=== PATIENT | female | born 1950 | race African-American/Black ===

== ENCOUNTER 2018-01-20 19:51 | Emergency (ER) | payer MEDICARE, MEDICAID ==
[~2018-01-20] VITALS: Ht 165.1 cm; Wt 77.1 kg
[2018-01-20] MEDS ORDERED: methylPREDNISolone SOD SUCC 125 MG/2 ML VL ONE (20:01)
[2018-01-20] MEDS ORDERED: EPINEPHrine HCL 1 MG/1 ML AMP ONE (20:01)
[2018-01-20] MEDS ORDERED: diphenhdrAMINE HCL 50 MG/1 ML VL IV ONE (20:30)
[2018-01-20] MEDS ORDERED: FAMOTIDINE (10MG/ML) 2ML VL IV ONE (20:30)
[2018-01-20] MEDS ORDERED: DEXAMETHASONE SOD PHOS 10MG/1ML VIAL INJ IM ONE ×2 (20:30→20:45)
[2018-01-20] MEDS ORDERED: EPINEPHrine HCL 1 MG/1 ML AMP SC ONE (20:45)
[2018-01-20] MEDS ORDERED: methylPREDNISolone SOD SUCC 125 MG/2 ML VL IV ONE (20:45)
[2018-01-20] MEDS ORDERED: ALBUTEROL SULF 2.5 MG/0.5ML(0.5%) NEB SOLN NEB ONE (22:45)
[2018-01-20] MEDS ORDERED: IPRATROPIUM BROM 0.5 MG/2.5ML INH SOL NEB ONE (22:45)
[2018-01-20 22:51] VITALS: BP 146/81
== END 2018-01-20 23:40 | disposition home or self-care (01) ==
LOC: ER 19:57
DX: R22.9 Localized swelling, mass and lump, unspecified (principal); T78.40XA Allergy, unspecified, initial encounter; I10 Essential (primary) hypertension; X58.XXXA Exposure to other specified factors, initial encounter
CPT/HCPCS: 94640; 96372; 96374; 96375; 99284; J0171; J2930; J3490; 93005

== ENCOUNTER 2018-01-23 08:44 | Emergency (ER) | payer MEDICARE, MEDICAID ==
[~2018-01-23] VITALS: Ht 165.1 cm; Wt 79.4 kg
[2018-01-23] MEDS ORDERED: diphenhdrAMINE HCL 50 MG/1 ML VL IV ONE (09:15)
[2018-01-23] MEDS ORDERED: methylPREDNISolone SOD SUCC 125 MG/2 ML VL IV ONE (09:15)
[2018-01-23] MEDS ORDERED: EPINEPHrine HCL 1 MG/1 ML AMP IM ONE (09:15)
[2018-01-23 09:43] LABS: Basophils # (auto) 0 uL; Basophils % (auto) 0.9 % (0.0-2.0); Eosinophils # (auto) 0 uL; Eosinophils % (auto) 0.8 % (0.0-7.0); Hematocrit 41.8 % (36.0-46.0); Hemoglobin 13.9 g/dL (12.2-16.2); Lymphocytes # (auto) 1.4 uL; Lymphocytes % (auto) 31.3 % (10.0-50.0); Mean Corpuscular Hemoglobin 29.6 pg (28.0-32.0); Mean Corpuscular Hgb Conc. 33.2 g/dL (32.0-36.0); Mean Corpuscular Volume 89.2 fL (80.0-100.0); Monocytes # (auto) 0.3 uL; Monocytes % (auto) 7.3 % (0.0-12.0); Neutrophils # (auto) 2.8 uL; Neutrophils % (auto) 59.7 % (37.0-80.0); Nucleated Red Blood Cells % 0.2 %; Platelet Count (auto) 199 10^3/uL (140-450); Red Blood Cells 4.68 10^6/uL (4.0-5.20); Red Cell Distribution Width 13.5 % (11.8-14.3); White Blood Cell 4.6 10^3/uL (4.4-10.8)
[2018-01-23 09:48] LABS: INR 0.89 (0.9-1.15); Prothrombin Time 9.6 sec (9.27-12.13)
[2018-01-23 10:15] LABS: Alanine Aminotransferase 36 U/L (13-56); Albumin 3.5 g/dL (3.4-5.0); Anion Gap 9 (5-15); Aspartate Aminotransferase 34 U/L (15-37); BUN/Creatinine Ratio 14.8; Blood Urea Nitrogen 12 mg/dL (7-18); Calcium 8.6 mg/dL (8.5-10.1); Carbon Dioxide 26 mmol/L (21-32); Chloride 108 mmol/L (98-107); GFR African American 90 mL/min; GFR Non-African American 75 mL/min; Glucose 83 mg/dL (74-106); Potassium 3.8 mmol/L (3.5-5.1); Sodium 143 mmol/L (136-145)
[2018-01-23 10:33] LABS: Alkaline Phosphatase 95 U/L (45-117); Bilirubin, Total 0.4 mg/dL (0.2-1.0); Total Protein 7.2 g/dL (6.4-8.2)
[2018-01-23 10:35] VITALS: BP 146/90
== END 2018-01-23 12:30 | disposition home or self-care (01) ==
LOC: ER 08:44
DX: T78.3XXA Angioneurotic edema, initial encounter (principal); T78.40XA Allergy, unspecified, initial encounter; I10 Essential (primary) hypertension; Z88.8 Allergy status to other drugs, medicaments and biological substances; X58.XXXA Exposure to other specified factors, initial encounter
CPT/HCPCS: 36415; 70490; 71046; 80053; 84484; 85025; 85610; 85730; 96372; 96374; 99285; J0171; J2930

== ENCOUNTER 2018-02-26 08:05 | Inpatient (IN) | payer MEDICARE, MEDICAID ==
[~2018-02-26] VITALS: Ht 165.1 cm; Wt 72.6 kg
[2018-02-26] MEDS ORDERED: methylPREDNISolone SOD SUCC 125 MG/2 ML VL IV ONE (08:30)
[2018-02-26] MEDS ORDERED: EPINEPHrine HCL 1 MG/1 ML AMP SC ONE (08:30)
[2018-02-26] MEDS ORDERED: diphenhdrAMINE HCL 50 MG/1 ML VL IV ONE (08:30)
[2018-02-26] MEDS ORDERED: ACETAMINOPHEN 500 MG TAB PO ONE (10:15)
[2018-02-26] MEDS ORDERED: SODIUM CHLORIDE 0.9% 1,000 ML IV ONE (10:53)
[2018-02-26 12:12] LABS: Basophils # (auto) 0 uL; Basophils % (auto) 0.2 % (0.0-2.0); Eosinophils # (auto) 0 uL; Hematocrit 45.7 % (36.0-46.0); Hemoglobin 15.2 g/dL (12.2-16.2); Lymphocytes # (auto) 0.5 uL; Lymphocytes % (auto) 6.1 % (10.0-50.0); Mean Corpuscular Hemoglobin 28.7 pg (28.0-32.0); Mean Corpuscular Hgb Conc. 33.3 g/dL (32.0-36.0); Mean Corpuscular Volume 86.4 fL (80.0-100.0); Monocytes # (auto) 0.1 uL; Monocytes % (auto) 0.9 % (0.0-12.0); Neutrophils # (auto) 8.1 uL; Neutrophils % (auto) 92.8 % (37.0-80.0); Platelet Count (auto) 211 10^3/uL (140-450); Red Blood Cells 5.29 10^6/uL (4.0-5.20); Red Cell Distribution Width 12.9 % (11.8-14.3); White Blood Cell 8.7 10^3/uL (4.4-10.8)
[2018-02-26 12:27] LABS: Bilirubin, Total 0.4 mg/dL (0.2-1.0); Calcium 8.9 mg/dL (8.5-10.1); Potassium 3.7 mmol/L (3.5-5.1); Total Protein 7.9 g/dL (6.4-8.2)
[2018-02-26] MEDS ORDERED: SODIUM CHLORIDE 0.9% 1,000 ML IV SCH (13:31)
[2018-02-26 13:42] LABS: Urine WBC None Seen /hpf (0 - 5)
[2018-02-26] MEDS ORDERED: TEMAZEPAM 15 MG CAP PO PRN (13:45)
[2018-02-26] MEDS ORDERED: NITROGLYCERIN 0.4 MG SL TAB SL PRN (13:45)
[2018-02-26] MEDS ORDERED: ACETAMINOPHEN 500 MG TAB PO PRN (13:45)
[2018-02-26] MEDS ORDERED: LORazepam 0.5 MG TAB PO PRN (13:45)
[2018-02-26] MEDS ORDERED: HYDROcodone-ACET 5/325MG TAB PO PRN (13:45)
[2018-02-26] MEDS ORDERED: LACTULOSE 20Gm/30ML SOLN PO PRN (13:45)
[2018-02-26] MEDS ORDERED: DEXTROSE (50%) 50ML SYRG IV PRN (13:45)
[2018-02-26] MEDS ORDERED: ONDANSETRON HCL 4 MG/2 ML VIAL IV PRN (13:45)
[2018-02-26] MEDS ORDERED: FAMOTIDINE (10MG/ML) 2ML VL IV ONE (13:45)
[2018-02-26] MEDS ORDERED: ALBUTEROL SULF 2.5 MG/0.5ML(0.5%) NEB SOLN NEB PRN (13:45)
[2018-02-26] MEDS ORDERED: diphenhdrAMINE HCL 50 MG/1 ML VL IV PRN (13:45)
[2018-02-26] MEDS ORDERED: MORPHINE SULFATE 4 MG/ML SYR/VIAL IV PRN ×2 (13:45)
[2018-02-26 13:56] LABS: Urine Bacteria NONE SEEN /hpf (None Seen); Urine Blood Negative /uL (Negative); Urine Mucus FEW (None Seen); Urine Specific Gravity 1.013 (1.001-1.035)
[2018-02-26] MEDS ORDERED: methylPREDNISolone SOD SUCC 40 MG/ML VL IV ONE (14:00)
[2018-02-26] MEDS ORDERED: PANTOPRAZOLE 40 MG TAB PO ONE (14:00)
[2018-02-26] MEDS ORDERED: ENOXAPARIN SOD 40 MG/0.4 ML SYRINGE SC ONE (14:00)
[2018-02-26] MEDS: ALBUTEROL SULF 2.5 MG/0.5ML(0.5%) NEB SOLN NEB SCH (17:37)
[2018-02-26] MEDS: SODIUM CHLORIDE 0.9% 1,000 ML IV SCH (18:19)
[2018-02-26] MEDS: methylPREDNISolone SOD SUCC 40 MG/ML VL IV SCH (18:21)
[2018-02-26] MEDS: ACCU-CHEK COMFORT CURVE STRIP VI SCH (18:23)
[2018-02-26] MEDS ORDERED: FAMOTIDINE (10MG/ML) 2ML VL IV SCH (22:00)
[2018-02-27] MEDS: methylPREDNISolone SOD SUCC 40 MG/ML VL IV SCH ×3 (00:03→11:40)
[2018-02-27] MEDS: ACCU-CHEK COMFORT CURVE STRIP VI SCH ×3 (00:03→12:05)
[2018-02-27 00:33] VITALS: BP 119/72
[2018-02-27] MEDS ORDERED: KEP500T PO (01:08)
[2018-02-27] MEDS ORDERED: PRE5T PO (01:08)
[2018-02-27] MEDS ORDERED: HCTZ25T PO (01:08)
[2018-02-27] MEDS ORDERED: NEBI5TAB2 PO (01:08)
[2018-02-27] MEDS ORDERED: AMLO5TAB13 PO (01:08)
[2018-02-27] MEDS ORDERED: ALBUAER3 IN (01:08)
[2018-02-27] MEDS ORDERED: HYDR50TA15 PO (01:08)
[2018-02-27] MEDS: ALBUTEROL SULF 2.5 MG/0.5ML(0.5%) NEB SOLN NEB SCH ×3 (01:13→13:13)
[2018-02-27 03:12] VITALS: BP 141/71
[2018-02-27 03:27] VITALS: BP 119/72
[2018-02-27 05:18] VITALS: BP 120/63
[2018-02-27] MEDS: SODIUM CHLORIDE 0.9% 1,000 ML IV SCH (06:29)
[2018-02-27 07:45] VITALS: BP 130/72
[2018-02-27 08:29] LABS: Cholesterol 259 mg/dL (< 200); HDL Cholesterol 73 mg/dL (40-59); LDL Cholesterol 150 mg/dL (< 100); Triglycerides 326 mg/dL (< 150)
[2018-02-27 09:00] VITALS: BP 130/72
[2018-02-27] MEDS ORDERED: PANTOPRAZOLE 40 MG TAB PO SCH (10:00)
[2018-02-27] MEDS ORDERED: ENOXAPARIN SOD 40 MG/0.4 ML SYRINGE SC SCH (10:00)
== END 2018-02-27 14:32 | disposition home or self-care (01) | DRG 916 ==
LOC: ER 08:05 → TELE 08:06 → TELE-WESTW 22:18
PROVIDERS: ADMIT Internal Medicine; ATTEND Internal Medicine
DX: T78.3XXA Angioneurotic edema, initial encounter (principal); I10 Essential (primary) hypertension; E78.5 Hyperlipidemia, unspecified; E66.9 Obesity, unspecified; G40.909 Epilepsy, unspecified, not intractable, without status epilepticus; Z83.3 Family history of diabetes mellitus; Z93.0 Tracheostomy status; Z68.26 Body mass index [BMI] 26.0-26.9, adult
CPT/HCPCS: 36415; 70486; 71046; 80053; 80061; 81001; 82962; 83036; 83735; 84443; 85025; 85652; 93005; 94640; 96361; 96372; 96374; 96375; J0171; J3490

== ENCOUNTER 2020-09-02 11:58 | Inpatient (IN) | payer OTHER, MEDICAID ==
[2020-09-02] VITALS (24 sets, daily range): BP systolic 117–142; BP diastolic 75–97
[~2020-09-02] VITALS: Ht 165.1 cm; Wt 79.6 kg
[~2020-09-02 11:58] MED LIST: ALBUAER3 IN; AMLO-489 PO; HYDR25TA5 PO; HYDR50TA15 PO; KEP500T PO; NEBI5TAB2 PO; PRE5T PO
[2020-09-02] MEDS ORDERED: LABETALOL HCL 5 MG/ML 4ML SYRINGE IV ONE (12:45)
[2020-09-02 13:49] LABS: Basophils # (auto) 0 10 ^3/uL (0-0.2); Basophils % (auto) 0.3 % (0.0-2.0); Eosinophils # (auto) 0 10 ^3/uL (0-0.8); Eosinophils % (auto) 0.3 % (0.0-7.0); Hemoglobin 13.7 g/dL (12.2-16.2); Lymphocytes # (auto) 1.1 10 ^3/uL (0.4-5.4); Lymphocytes % (auto) 14.3 % (10.0-50.0); Mean Corpuscular Hemoglobin 27.5 pg (28.0-32.0); Mean Corpuscular Hgb Conc. 32.5 g/dL (32.0-36.0); Mean Corpuscular Volume 84.6 fL (80.0-100.0); Monocytes # (auto) 0.5 10 ^3/uL (0-1.3); Monocytes % (auto) 6.8 % (0.0-12.0); Neutrophils # (auto) 6.2 10 ^3/uL (1.6-8.6); Neutrophils % (auto) 78.3 % (37.0-80.0); Nucleated Red Blood Cells % 0.1 %; Red Blood Cells 4.96 10^6/uL (4.0-5.20); Red Cell Distribution Width 13.1 % (11.8-14.3); White Blood Cell 7.9 10^3/uL (4.4-10.8)
[2020-09-02 14:07] LABS: Potassium 3.8 mmol/L (3.5-5.1)
[2020-09-02 14:18] LABS: Albumin 3.4 g/dL (3.4-5.0); BUN/Creatinine Ratio 25.9; Bilirubin, Total 0.6 mg/dL (0.2-1.0); Calcium 8.5 mg/dL (8.5-10.1); Total Protein 6.9 g/dL (6.4-8.2)
[2020-09-02 14:24] LABS: Urine Bacteria FEW /hpf (None Seen); Urine Blood Negative /uL (Negative); Urine Specific Gravity 1.014 (1.001-1.035); Urine WBC 7 /hpf (0 - 5)
[2020-09-02] MEDS ORDERED: NITROGLYCERIN 0.4 MG SL TAB SL PRN (14:30)
[2020-09-02] MEDS ORDERED: MORPHINE SULFATE INJECTION 2 MG/ML SYRG IV PRN ×2 (14:30→14:45)
[2020-09-02] MEDS ORDERED: DOCUSATE CALCIUM 240 MG CAP PO PRN (14:45)
[2020-09-02] MEDS ORDERED: ACETAMINOPHEN 500 MG TAB PO PRN (14:45)
[2020-09-02] MEDS ORDERED: ONDANSETRON HCL 4 MG/2 ML VIAL IV PRN (14:45)
[2020-09-02] MEDS ORDERED: hydrALAZINE HCL 20 MG/ML VL IV PRN (14:45)
[2020-09-02] MEDS ORDERED: LORazepam 0.5 MG TAB PO PRN (14:45)
[2020-09-02] MEDS ORDERED: dilTIAZem 25 MG/5 ML VIAL IV ONE (15:00)
[2020-09-02] MEDS ORDERED: dilTIAZem 125mg/125ml BAG KIT 125 ML IV SCH (15:00)
[2020-09-02] MEDS ORDERED: ALBUTEROL SULF 2.5 MG/0.5ML(0.5%) NEB SOLN NEB PRN (15:00)
[2020-09-02] MEDS ORDERED: ISOSORBIDE MONONITRATE ER 60 MG TAB PO ONE (15:15)
[2020-09-03] VITALS (37 sets, daily range): BP systolic 120–157; BP diastolic 70–108
[2020-09-03 05:50] LABS: Basophils # (auto) 0 10 ^3/uL (0-0.2); Basophils % (auto) 0.6 % (0.0-2.0); Eosinophils # (auto) 0 10 ^3/uL (0-0.8); Eosinophils % (auto) 0.5 % (0.0-7.0); Hematocrit 37.1 % (36.0-46.0); Hemoglobin 12.3 g/dL (12.2-16.2); Lymphocytes # (auto) 1.9 10 ^3/uL (0.4-5.4); Lymphocytes % (auto) 26.9 % (10.0-50.0); Mean Corpuscular Volume 84.7 fL (80.0-100.0); Monocytes # (auto) 0.6 10 ^3/uL (0-1.3); Monocytes % (auto) 9.2 % (0.0-12.0); Neutrophils # (auto) 4.3 10 ^3/uL (1.6-8.6); Neutrophils % (auto) 62.8 % (37.0-80.0); Nucleated Red Blood Cells % 0.2 %; Red Blood Cells 4.38 10^6/uL (4.0-5.20); Red Cell Distribution Width 13.3 % (11.8-14.3); White Blood Cell 6.9 10^3/uL (4.4-10.8)
[2020-09-03 06:04] LABS: Albumin 3.2 g/dL (3.4-5.0); Calcium 8.4 mg/dL (8.5-10.1); Potassium 3.5 mmol/L (3.5-5.1)
[2020-09-03 06:09] LABS: BUN/Creatinine Ratio 26.2; Bilirubin, Total 0.9 mg/dL (0.2-1.0); INR 1.06 (0.9-1.15); Total Protein 6.4 g/dL (6.4-8.2)
[2020-09-03] MEDS: PANTOPRAZOLE 40 MG TAB PO SCH (09:00)
[2020-09-03] MEDS ORDERED: ENOXAPARIN SOD 40 MG/0.4 ML SYRINGE SC SCH (10:00)
[2020-09-03] MEDS ORDERED: METOPROLOL TARTRATE 25 MG TAB PO ONE (11:30)
[2020-09-03] MEDS: levETIRAcetam 500 MG TAB PO SCH ×2 (11:52→21:07)
[2020-09-03] MEDS: traMADol HCL 50 MG TAB PO PRN ×2 (11:52→21:09)
[2020-09-03] MEDS: APIXABAN 5 MG TAB PO SCH (21:06)
[2020-09-03] MEDS: METOPROLOL TARTRATE 25 MG TAB PO SCH (21:07)
[2020-09-03] MEDS ORDERED: ENOXAPARIN SOD 80 MG/0.8ML SYRINGE SC SCH (22:00)
[2020-09-03] MEDS: MORPHINE SULFATE INJECTION 2 MG/ML SYRG IV PRN (23:24)
[2020-09-04] VITALS (18 sets, daily range): BP systolic 115–163; BP diastolic 69–110
[2020-09-04 05:35] LABS: Magnesium 1.9 mg/dL (1.6-2.6)
[2020-09-04] MEDS: levETIRAcetam 500 MG TAB PO SCH ×3 (06:41→21:02)
[2020-09-04] MEDS: APIXABAN 5 MG TAB PO SCH ×2 (08:48→21:02)
[2020-09-04] MEDS: HCTZ 25 MG TAB PO SCH (08:48)
[2020-09-04] MEDS: METOPROLOL TARTRATE 25 MG TAB PO SCH ×2 (08:49→21:02)
[2020-09-04] MEDS: PANTOPRAZOLE 40 MG TAB PO SCH (08:50)
[2020-09-04] MEDS: amLODIPine BESYLATE 5 MG TAB PO SCH (08:50)
[2020-09-04] MEDS: traMADol HCL 50 MG TAB PO PRN ×2 (09:30→22:28)
[2020-09-04 09:42] LABS: Basophils # (auto) 0.1 10 ^3/uL (0-0.2); Basophils % (auto) 0.7 % (0.0-2.0); Eosinophils # (auto) 0 10 ^3/uL (0-0.8); Eosinophils % (auto) 0.2 % (0.0-7.0); Hematocrit 40.3 % (36.0-46.0); Hemoglobin 13.4 g/dL (12.2-16.2); Lymphocytes # (auto) 1.1 10 ^3/uL (0.4-5.4); Lymphocytes % (auto) 13.6 % (10.0-50.0); Mean Corpuscular Hemoglobin 28.5 pg (28.0-32.0); Mean Corpuscular Hgb Conc. 33.3 g/dL (32.0-36.0); Mean Corpuscular Volume 85.5 fL (80.0-100.0); Monocytes # (auto) 0.6 10 ^3/uL (0-1.3); Monocytes % (auto) 7.5 % (0.0-12.0); Neutrophils # (auto) 6.5 10 ^3/uL (1.6-8.6); Nucleated Red Blood Cells % 0.2 %; Red Blood Cells 4.71 10^6/uL (4.0-5.20); Red Cell Distribution Width 13.7 % (11.8-14.3); White Blood Cell 8.3 10^3/uL (4.4-10.8)
[2020-09-04] MEDS ORDERED: hydrALAZINE HCL 25 MG TAB PO ONE (09:45)
[2020-09-04 09:57] LABS: Albumin 3.1 g/dL (3.4-5.0); Calcium 8.6 mg/dL (8.5-10.1)
[2020-09-04 10:03] LABS: BUN/Creatinine Ratio 12.5; Total Protein 6.7 g/dL (6.4-8.2)
[2020-09-04] MEDS: hydrALAZINE HCL 25 MG TAB PO SCH ×2 (14:01→21:01)
[2020-09-04] MEDS: MORPHINE SULFATE INJECTION 2 MG/ML SYRG IV PRN (22:45)
[2020-09-05] MEDS: traMADol HCL 50 MG TAB PO PRN (04:06)
[2020-09-05 06:00] VITALS: BP 129/80
[2020-09-05] MEDS: levETIRAcetam 500 MG TAB PO SCH ×2 (06:23→13:08)
[2020-09-05] MEDS: hydrALAZINE HCL 25 MG TAB PO SCH ×2 (06:32→13:08)
[2020-09-05 08:45] VITALS: BP 123/65
[2020-09-05] MEDS: HCTZ 25 MG TAB PO SCH (09:38)
[2020-09-05] MEDS: METOPROLOL TARTRATE 25 MG TAB PO SCH (09:38)
[2020-09-05] MEDS: APIXABAN 5 MG TAB PO SCH (09:38)
[2020-09-05] MEDS: amLODIPine BESYLATE 5 MG TAB PO SCH (09:39)
[2020-09-05] MEDS: PANTOPRAZOLE 40 MG TAB PO SCH (09:39)
[2020-09-05 12:35] VITALS: BP 113/68
== END 2020-09-05 16:46 | disposition home health service (06) | DRG 309 ==
LOC: EDBD 11:58 → ER 11:58 → TELE-DOU 14:29 → DOU IN ICU 16:50 → TELE-WESTW 09-04 21:20
PROVIDERS: ADMIT Family Medicine; ATTEND Internal Medicine Geriatric Medicine
DX: I48.91 Unspecified atrial fibrillation (principal); I16.1 Hypertensive emergency; I48.92 Unspecified atrial flutter; R55 Syncope and collapse; G40.909 Epilepsy, unspecified, not intractable, without status epilepticus; E78.5 Hyperlipidemia, unspecified; E11.9 Type 2 diabetes mellitus without complications; J45.909 Unspecified asthma, uncomplicated; M54.9 Dorsalgia, unspecified; M54.2 Cervicalgia; R77.8 Other specified abnormalities of plasma proteins; Z20.822 Contact with and (suspected) exposure to COVID-19; Z82.49 Family history of ischemic heart disease and other diseases of the circulatory system; Z88.8 Allergy status to other drugs, medicaments and biological substances; Z90.710 Acquired absence of both cervix and uterus
CPT/HCPCS: 36415; 70450; 71045; 80053; 80061; 81001; 83735; 83880; 84443; 84484; 85025; 85610; 87081; 87426; 93005; 93306; 96365; 96375; 99291; G0378; J3490

== ENCOUNTER 2023-07-06 15:00 | Inpatient (IN) | payer OTHER, MEDICAID ==
[~2023-07-06] VITALS: Ht 165.1 cm; Wt 76.5 kg
[~2023-07-06 15:00] MED LIST changes: -AMLO-489 PO; +AMLO1TAB22 PO; +HYDR-4297 PO; -HYDR50TA15 PO
[2023-07-06 15:57] LABS: Basophils # (auto) 0 10 ^3/uL (0-0.2); Eosinophils # (auto) 0.1 10 ^3/uL (0-0.8); Lymphocytes # (auto) 1.3 10 ^3/uL (0.4-5.4); Monocytes # (auto) 0.3 10 ^3/uL (0-1.3); Nucleated Red Blood Cells % 0.1 %
[2023-07-06 16:00] LABS: Basophils % (auto) 0.5 % (0.0-2.0); Eosinophils % (auto) 1.2 % (0.0-7.0); Hematocrit 38.1 % (36.0-46.0); Hemoglobin 12.3 g/dL (12.2-16.2); Lymphocytes % (auto) 18.1 % (10.0-50.0); Mean Corpuscular Hemoglobin 25.8 pg (28.0-32.0); Mean Corpuscular Hgb Conc. 32.4 g/dL (32.0-36.0); Mean Corpuscular Volume 79.9 fL (80.0-100.0); Monocytes % (auto) 3.8 % (0.0-12.0); Neutrophils # (auto) 5.3 10 ^3/uL (1.6-8.6); Neutrophils % (auto) 76.4 % (37.0-80.0); Red Blood Cells 4.77 10^6/uL (4.0-5.20); Red Cell Distribution Width 18.2 % (11.8-14.3)
[2023-07-06 16:11] LABS: INR 1.11 (0.9-1.15); Partial Thromboplastin Time 30.4 SEC (24.5-34.5); Prothrombin Time 11.6 sec (9.3-11.8)
[2023-07-06 16:17] LABS: Alanine Aminotransferase 11 U/L (7-40); Alkaline Phosphatase 163 U/L (46-116); Anion Gap 6 (5-15); Aspartate Aminotransferase 13 U/L (13-40); BUN/Creatinine Ratio 14.7 (10.0-20.0); Bilirubin, Total 0.4 mg/dL (0.2-1.0); Blood Urea Nitrogen 11 mg/dL (9-23); Calcium 8.8 mg/dL (8.7-10.4); Carbon Dioxide 28 mmol/L (20-30); Chloride 110 mmol/L (98-107); Glucose 113 mg/dL (74-106); Potassium 3.4 mmol/L (3.5-5.1); Sodium 144 mmol/L (136-145); Total Protein 6.7 g/dL (5.7-8.2)
[2023-07-06] MEDS: PANTOPRAZOLE 40 MG/10 ML VIAL INJ IV ONE (16:26)
[2023-07-06] MEDS: SODIUM CHLORIDE 0.9% 1,000 ML IV ONE (16:26)
[2023-07-06] MEDS: SODIUM CHLORIDE 0.9% 1,000 ML IV SCH (17:16)
[2023-07-06] MEDS: POTASSIUM EFFERVESENT TAB 25 MEQ PO ONE (17:25)
[2023-07-06 19:21] LABS: Urine Bacteria NONE SEEN /hpf (None Seen); Urine Blood Negative /uL (Negative); Urine Clarity Clear (Clear); Urine Color Colorless (Yellow); Urine Protein, UAD Negative (Negative); Urine Specific Gravity 1.014 (1.001-1.035); Urine Urobilinogen Normal (Negative); Urine WBC <1 /hpf (0 - 5)
[2023-07-06 22:57] VITALS: BP 163/84; PULSE 67; RESP 17; TEMP 97.6
[2023-07-06] MEDS: ACETAMINOPHEN 325 MG TAB PO PRN (23:07)
[2023-07-06] MEDS: levETIRAcetam 500 MG TAB PO SCH (23:07)
[2023-07-07 05:00] VITALS: BP 113/65; PULSE 58; RESP 17; TEMP 98; O2SAT 98
[2023-07-07 07:03] LABS: Basophils # (auto) 0 10 ^3/uL (0-0.2); Eosinophils # (auto) 0.1 10 ^3/uL (0-0.8); Hemoglobin 9.8 g/dL (12.2-16.2); Lymphocytes # (auto) 1.5 10 ^3/uL (0.4-5.4); Monocytes # (auto) 0.5 10 ^3/uL (0-1.3)
[2023-07-07 07:07] LABS: Basophils % (auto) 0.4 % (0.0-2.0); Eosinophils % (auto) 2.1 % (0.0-7.0); Hematocrit 30.1 % (36.0-46.0); Lymphocytes % (auto) 24.8 % (10.0-50.0); Mean Corpuscular Hemoglobin 26.1 pg (28.0-32.0); Mean Corpuscular Hgb Conc. 32.7 g/dL (32.0-36.0); Mean Corpuscular Volume 79.6 fL (80.0-100.0); Monocytes % (auto) 8.6 % (0.0-12.0); Neutrophils # (auto) 3.8 10 ^3/uL (1.6-8.6); Neutrophils % (auto) 64.1 % (37.0-80.0); Nucleated Red Blood Cells % 0.2 %; Red Blood Cells 3.78 10^6/uL (4.0-5.20); Red Cell Distribution Width 18.3 % (11.8-14.3)
[2023-07-07 07:28] LABS: Albumin 3.4 g/dL (3.2-4.8); Alkaline Phosphatase 126 U/L (46-116); Anion Gap 6 (5-15); Aspartate Aminotransferase < 8 U/L (13-40); Bilirubin, Total 0.6 mg/dL (0.2-1.0); Blood Urea Nitrogen 11 mg/dL (9-23); Calcium 8.9 mg/dL (8.5-10.1); Carbon Dioxide 28 mmol/L (20-30); Chloride 111 mmol/L (98-107); Glucose 87 mg/dL (74-106); Potassium 3.8 mmol/L (3.5-5.1); Sodium 145 mmol/L (136-145); Total Protein 5.2 g/dL (5.7-8.2)
[2023-07-07 07:29] LABS: Alanine Aminotransferase < 9 U/L (7-40)
[2023-07-07 08:00] VITALS: PULSE 63; RESP 18; O2SAT 98
[2023-07-07 09:00] VITALS: BP 163/82; PULSE 63; RESP 19; TEMP 98; O2SAT 96
[2023-07-07] MEDS: amLODIPine BESYLATE 5 MG TAB PO SCH (10:51)
[2023-07-07] MEDS: PANTOPRAZOLE 40 MG/10 ML VIAL INJ IV SCH (10:52)
[2023-07-07] MEDS: hydroCHLOROthiazide 25 MG TAB PO SCH (10:52)
[2023-07-07 13:00] VITALS: BP 167/79; PULSE 63; RESP 19; TEMP 98.2; O2SAT 96
[2023-07-07 16:40] VITALS: BP 130/56; PULSE 61; RESP 19; TEMP 98.2; O2SAT 96
[2023-07-07 23:13] VITALS: BP 141/69; PULSE 66; RESP 18; TEMP 98.6; O2SAT 94
[2023-07-08] VITALS (7 sets, daily range): BP systolic 107–141; BP diastolic 54–98; PULSE 57–110; RESP 16–18; TEMP 97.8–98.8; O2SAT 93–98
[2023-07-08 07:34] LABS: Basophils # (auto) 0 10 ^3/uL (0-0.2); Eosinophils # (auto) 0.1 10 ^3/uL (0-0.8); Eosinophils % (auto) 1.5 % (0.0-7.0); Hematocrit 32.9 % (36.0-46.0); Lymphocytes # (auto) 1.4 10 ^3/uL (0.4-5.4); Lymphocytes % (auto) 21.6 % (10.0-50.0); Monocytes # (auto) 0.5 10 ^3/uL (0-1.3); Neutrophils # (auto) 4.4 10 ^3/uL (1.6-8.6)
[2023-07-08 07:54] LABS: Anion Gap 7 (5-15); Carbon Dioxide 28 mmol/L (20-30); Chloride 107 mmol/L (98-107); Potassium 3.7 mmol/L (3.5-5.1); Sodium 142 mmol/L (136-145)
[2023-07-08 07:55] LABS: Calcium 9.2 mg/dL (8.5-10.1)
[2023-07-08 08:00] LABS: BUN/Creatinine Ratio 12.5 (10.0-20.0); Blood Urea Nitrogen 8 mg/dL (9-23); Glucose 89 mg/dL (74-106)
[2023-07-08 08:11] LABS: Basophils % (auto) 0.2 % (0.0-2.0); Hemoglobin 10.7 g/dL (12.2-16.2); Mean Corpuscular Hemoglobin 26.2 pg (28.0-32.0); Mean Corpuscular Hgb Conc. 32.6 g/dL (32.0-36.0); Mean Corpuscular Volume 80.4 fL (80.0-100.0); Monocytes % (auto) 7.4 % (0.0-12.0); Neutrophils % (auto) 69.3 % (37.0-80.0); Nucleated Red Blood Cells % 0.2 %; Red Blood Cells 4.09 10^6/uL (4.0-5.20); Red Cell Distribution Width 18.2 % (11.8-14.3); White Blood Cell 6.3 10^3/uL (4.4-10.8)
[2023-07-08] MEDS ORDERED: ONDANSETRON HCL 4 MG/2 ML VIAL IV PRN (12:00)
[2023-07-08] MEDS ORDERED: hydrALAZINE HCL 20 MG/ML VL IV PRN (12:00)
[2023-07-09] VITALS (7 sets, daily range): BP systolic 124–144; BP diastolic 69–74; PULSE 62–78; RESP 16–18; TEMP 97.9–98.6; O2SAT 91–98
[2023-07-09 06:24] LABS: Basophils # (auto) 0 10 ^3/uL (0-0.2); Eosinophils # (auto) 0 10 ^3/uL (0-0.8); Eosinophils % (auto) 0.7 % (0.0-7.0); Lymphocytes # (auto) 0.8 10 ^3/uL (0.4-5.4); Monocytes # (auto) 0.4 10 ^3/uL (0-1.3)
[2023-07-09 06:27] LABS: Basophils % (auto) 0.3 % (0.0-2.0); Hemoglobin 10.5 g/dL (12.2-16.2); Lymphocytes % (auto) 14.2 % (10.0-50.0); Mean Corpuscular Hemoglobin 26.5 pg (28.0-32.0); Mean Corpuscular Volume 80.5 fL (80.0-100.0); Monocytes % (auto) 7.2 % (0.0-12.0); Neutrophils # (auto) 4.7 10 ^3/uL (1.6-8.6); Neutrophils % (auto) 77.6 % (37.0-80.0); Red Blood Cells 3.97 10^6/uL (4.0-5.20)
[2023-07-09] MEDS: PANTOPRAZOLE 40 MG TAB PO SCH (09:19)
[2023-07-10 05:00] VITALS: BP 115/68; PULSE 68; RESP 18; TEMP 98.4; O2SAT 95
[2023-07-10 06:36] LABS: Basophils # (auto) 0 10 ^3/uL (0-0.2); Eosinophils # (auto) 0.1 10 ^3/uL (0-0.8); Hemoglobin 10.7 g/dL (12.2-16.2); Monocytes # (auto) 0.6 10 ^3/uL (0-1.3); Neutrophils # (auto) 2.4 10 ^3/uL (1.6-8.6); Nucleated Red Blood Cells % 0.3 %; White Blood Cell 4.2 10^3/uL (4.4-10.8)
[2023-07-10 06:39] LABS: Basophils % (auto) 0.2 % (0.0-2.0); Eosinophils % (auto) 1.5 % (0.0-7.0); Hematocrit 32.5 % (36.0-46.0); Lymphocytes # (auto) 1.1 10 ^3/uL (0.4-5.4); Lymphocytes % (auto) 26.9 % (10.0-50.0); Mean Corpuscular Hemoglobin 26.5 pg (28.0-32.0); Mean Corpuscular Volume 80.3 fL (80.0-100.0); Monocytes % (auto) 14.6 % (0.0-12.0); Neutrophils % (auto) 56.8 % (37.0-80.0); Red Blood Cells 4.05 10^6/uL (4.0-5.20); Red Cell Distribution Width 18.2 % (11.8-14.3)
[2023-07-10 08:40] VITALS: BP 146/78; PULSE 65; RESP 18; TEMP 97.9; O2SAT 96
[2023-07-10] MEDS ORDERED: FURO1TAB33 PO (10:28)
[2023-07-10 12:13] VITALS: BP 146/78; TEMP 36.6
== END 2023-07-10 13:30 | disposition home or self-care (01) | DRG 378 ==
LOC: ER 15:00 → OVERFLOW 16:52 → CENTRAL 21:40
PROVIDERS: ADMIT Nurse Practitioner Family; ATTEND Internal Medicine Geriatric Medicine
DX: K57.31 Diverticulosis of large intestine without perforation or abscess with bleeding (principal); D62 Acute posthemorrhagic anemia; I10 Essential (primary) hypertension; E78.5 Hyperlipidemia, unspecified; K59.00 Constipation, unspecified; I48.91 Unspecified atrial fibrillation; E87.6 Hypokalemia; G40.909 Epilepsy, unspecified, not intractable, without status epilepticus; K80.20 Calculus of gallbladder without cholecystitis without obstruction; K57.90 Diverticulosis of intestine, part unspecified, without perforation or abscess without bleeding; Z79.01 Long term (current) use of anticoagulants; Z88.8 Allergy status to other drugs, medicaments and biological substances; Z87.19 Personal history of other diseases of the digestive system; Z82.49 Family history of ischemic heart disease and other diseases of the circulatory system
CPT/HCPCS: 36415; 71045; 74176; 80048; 80053; 81001; 85025; 85610; 85730; 86850; 86900; 86901; 96361; 96374; C9113; G0378

== ENCOUNTER 2024-08-11 07:31 | Inpatient (IN) | payer OTHER, MEDICAID ==
[~2024-08-11] VITALS: Ht 165.1 cm; Wt 78.0 kg
[~2024-08-11 07:31] MED LIST changes: +ALBU108A5 IN; +DRON400T PO; +FURO1TAB33 PO; +FURO40TA4 PO; -HYDR-4297 PO; +HYDR50TA47 PO; +LOSA-534 PO; +METO25TA5 PO; +NEBI5TAB10 PO; -NEBI5TAB2 PO; +PANT40TA2 PO; -PRE5T PO
--- NOTE | 2024-08-11 07:38 | ECG ---
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
--- NOTE | 2024-08-11 07:46 | ED.PDOC ---
SOB-HPI HPI Comments 73 year old female MANUELA presents to the ED with chief complaint of SOB. Patient reports that she has been experiencing increasing SOB for the past week with associated nausea. Patient relays that she has been unable to lay down and sleep due to her SOB, noting that her inhaler and O2 at home has not improved symptoms. Patient states she takes her water pill and other medication as prescribed. Patient notes she has the Flu last month. Patient denies any chest pain, cough, dizziness, headache, vomiting, or fever. Chief Complaint: Shortness of Breath Time Seen by MD: 07:43 Primary Care Provider: TIA Reviewed notes: Nurses Notes, Brush Filler Hand Notes, Medications, Allergies Information Source: Patient, Emergency Med Personnel Mode of Arrival: EMS Severity: Moderate Timing: Weeks Duration: Since onset Context: At Rest PE Risk Factors: None History of: Asthma, CHF Prehospital treatment: None Modifying Factors: Nothing Associated Signs and Symptoms: None Past Medical History PAST MEDICAL HISTORY: AFIB, Asthma, CHF, High Lipids, HTN, Seizures Surgical History: Denies all surgeries CRM MARKETING ANALYST History: No Pertinent CRM MARKETING ANALYST History Family History Family History: Reviewed,noncontributory to illness Social History Smoker: Non-Smoker Alcohol: Occasionally Drugs: Denies Drug Use Lives In: Home Constitutional: denies: chills, diaphoresis, fatigue, fever, malaise, sweats, weakness, others EENTM: denies: blurred vision, double vision, ear bleeding, ear discharge, ear drainage, ear pain, ear ringing, eye pain, eye redness, hearing loss, mouth pain, mouth swelling, nasal discharge, nose bleeding, nose congestion, nose pain, photophobia, tearing, throat pain, throat swelling, voice changes, others Respiratory: reports: shortness of breath; denies: cough, hemoptysis, or thopnea, SOB at rest, SOB with excertion, stridor, wheezing, others Cardiovascular: denies: chest pain, dizzy spells, diaphoresis, Dyspnea on exertion, edema, irregular heart beat, left arm pain, lightheadedness, palpitations, PND, syncope, others Gastrointestinal: reports: nausea; denies: abdomen distended, abdominal pain, blood streaked bowels, constipated, diarrhea, dysphagia, difficulty swallowing, hematemesis, melena, poor appetite, poor fluid intake, rectal bleeding, rectal pain, vomiting, others Genitourinary: denies: abnormal vagina bleeding, burning, dyspareunia, dysuria, flank pain, frequency, hematuria, incontinence, pain, , vagina discharge, urgency, others Neurological: denies: dizziness, fainting, headache, left sided numbness, left sided weakness, numbness, paresthesia, pre-existing deficit, right sided numbness, right sided weakness, seizure, speech problems, tingling, tremors, weakness, others Musculoskeletal: denies: back pain, gout, joint pain, joint swelling, muscle pain, muscle stiffness, neck pain, others Integumetry: denies: bruises, change in color, change in hair/nails, dryness, laceration, lesions, lumps, rash, wounds, others Allergic/Immunocompromised: denies: Difficulty Healing, Frequent Infections, Hives, Itching, others Hematologic/Lymphatic: denies: anemia, blood clots, easy bleeding, easy bruising, swollen glands, others Endocrine: denies: excessive hunger, excessive sweating, excessive thirst, excessive urination, flushing, intolerance to cold, intolerance to heat, unexplained weight gain, unexplained weight loss, others Psychiatric: denies: anxiety, bipolar disorder, depression, hopeless, panic disorder, schizophrenia, sleepless, suicidal, others All Other Systems: Reviewed and Negative Physical Exam General Appearance: Moderate Distress, Normal HEENT: Normal ENT Inspection, PERRL/EOMI Neck: Full Range of Motion, Non-Tender, Normal, Normal Inspection Respiratory: Accessory Muscle Use, Chest Non-Tender, Respiratory Distress, Wheezing Cardiovascular: No Edema, No JVD, No Murmur, No Gallop, Normal Peripheral Pulses, Regular Rate/Rhythm Breast Exam: Deferred Gastrointestinal: No Organomegaly, Non Tender, No Pulsatile Mass, Normal Bowel Sounds, Soft Genitalia: Deferred Pelvic: Deferred Rectal: Deferred Extremities: No calf tenderness, Normal capillary refill, Normal inspection, Normal range of motion, Non-tender, No pedal edema Musculoskeletal : Apperance: Normal Neurologic: Alert, sonoscope operator II-XII nml as Tested, No Motor Deficits, Normal Affect, Normal Mood, No Sensory Deficits Cerebellar Function: NOT DONE Reflexes: NOT DONE Skin: Dry, Normal Color, Warm Peripheral Pulses: 3+ Radial (R), 3+ Radial (L) Lymphatic: No Adenopathy Was a procedure done? Was a procedure done?: No Differential Dx Differential Diagnosis: Anxiety, Asthma, Bronchitis, CHF, COPD X-Ray, Labs, Meds, VS Vital Signs Date Time Temp Pulse Resp B/P (MAP) Pulse Ox O2 Delivery O2 Flow Rate FiO2 08/11/24 09:06 127/102 08/11/24 08:25 97.8 107 17 127/102 (110) 97 97.8 08/11/24 08:25 107 08/11/24 07:31 83 08/11/24 07:31 98.1 96 17 131/95 (107) 98 98.1 Lab Test 08/11/24 08:51 08/11/24 07:58 Range/Units Troponin I High Sensitivity 8 7 </=34 ng/L White Blood Count 7.7 4.4-10.8 10^3/uL Red Blood Count 5.23 H 4.0-5.20 10^6/uL Hemoglobin 10.6 L 12.2-16.2 g/dL Hematocrit 34.8 L 36.0-46.0 % Mean Corpuscular Volume 66.5 L 80.0-100.0 fL Mean Corpuscular Hemoglobin 20.2 L 28.0-32.0 pg Mean Corpuscular Hemoglobin Concent 30.3 L 32.0-36.0 g/dL Red Cell Distribution Width 21.9 H 11.8-14.3 % Platelet Count 200 140-450 10^3/uL Mean Platelet Volume 8.4 6.9-10.8 fL Neutrophils (%) (Auto) 64.8 37.0-80.0 % Lymphocytes (%) (Auto) 23.5 10.0-50.0 % Monocytes (%) (Auto) 10.6 0.0-12.0 % Eosinophils (%) (Auto) 0.5 0.0-7.0 % Basophils (%) (Auto) 0.6 0.0-2.0 % Neutrophils # (Auto) 5.0 1.6-8.6 10 ^3/uL Lymphocytes # (Auto) 1.8 0.4-5.4 10 ^3/uL Monocytes # (Auto) 0.8 0-1.3 10 ^3/uL Eosinophils # (Auto) 0 0-0.8 10 ^3/uL Basophils # (Auto) 0 0-0.2 10 ^3/uL Nucleated Red Blood Cells 1.5 % Platelet Estimate Adequate Hypochromasia (manual) Moderate Anisocytosis (manual) Slight Microcytosis Moderate Tear Drop Cells Few [place] Cells Few Sodium Level 145 136-145 mmol/L Potassium Level 4.0 3.5-5.1 mmol/L Chloride Level 109 H 98-107 mmol/L Carbon Dioxide Level 25 20-31 mmol/L Anion Gap 11 5-15 Blood Urea Nitrogen 16 9-23 mg/dL Creatinine 1.21 H 0.550-1.02 mg/dL Glomerular Filtration Rate Calc 47 >90 mL/min BUN/Creatinine Ratio 13.2 10.0-20.0 Serum Glucose 99 74-106 mg/dL Calcium Level 9.3 8.7-10.4 mg/dL B-Type Natriuretic Peptide Pending Current Medications Medications (Trade) Dose Ordered Sig/Ziyad Route Start Time Stop Time Status Last Admin Furosemide (Lasix Injection) 20 mg ONCE ONCE IV 08/11/24 07:45 08/11/24 07:46 DC 08/11/24 09:06 Methylprednisolone Sodium Succinate (Solu Medrol) 125 mg ONCE ONCE IV 08/11/24 07:45 08/11/24 07:46 DC 08/11/24 09:02 Patient alert. Complaining of shortness a breath. No leg swelling. Vitals stable. Possible CHF. Was given Lasix. COPD exacerbation. Was given steroid. Continues to have shortness of breath. Placed on oxygen. Reviewed her previous visit. Explained to the patient. Continue cardiac monitoring. EKG reviewed does not show any acute changes. Cardiac marker within normal limits. Chest XR: FINDINGS: Lines and Tubes: None Lungs: Increased interstitial prominence Pleura: No effusion. No pneumothorax. Cardiomediastinal contours: Cardiomegaly Bones: Unremarkable IMPRESSION: Pulmonary vascular congestion Time of 1ST Reevaluation: 08:43 Reevaluation 1ST: Unchanged Patient Education/Counseling: Diagnosis, Treatment Family Education/Counseling: No Family Present Additional Information Previous visit documents reviewed: 07/06/23 for rectal bleeding The following tests were ordered, and results were reviewed by me: CBC, BMP, UA, BNP, Troponin, EKG, Chest XR Additional Information was gathered from interviewing the following independent historians: EMS I reviewed and agreed with the following test results read by other providers: Chest XR I discussed treatment and results with medical personnel and: Patient Departure 1 Departure Time of Disposition: 09:49 Impression: Primary Impression: Acute respiratory failure Qualified Codes: J96.01 - Acute respiratory failure with hypoxia Additional Impressions: COPD exacerbation CHF (congestive heart failure) Qualified Codes: I50.43 - Acute on chronic combined systolic (congestive) and diastolic (congestive) heart failure Disposition: 09 ADMITTED INPATIENT Admit to: Med Surg Condition: Guarded Critical Care Note Critical Care Time?: Yes (90 min-critical care time only) Critical care comment: Placed on oxygen Stability Stability form required: No Heart Score Heart Score: Heart Score Response (Comments) Value History Moderate Suspicious 1 EKG Normal 0 Age >65 2 Risk Factors >3 or Hx ASHD 2 Troponin Normal limit 0 Total 5 I personally scribed for JOSLYN MENENDEZ MD ([email or web address]) on 08/11/24 at 07:46. Electronically submitted by Holland Crandall ([email or web address]). I personally scribed for JOSLYN MENENDEZ MD ([email or web address]) on 08/11/24 at 09:52. Electronically submitted by Holland Crandall ([email or web address]). JOSLYN MENENDEZ MD Aug 11, 2024 07:46
[2024-08-11 08:13] LABS: Basophils # (auto) 0 10 ^3/uL (0-0.2); Basophils % (auto) 0.6 % (0.0-2.0); Eosinophils # (auto) 0 10 ^3/uL (0-0.8); Eosinophils % (auto) 0.5 % (0.0-7.0); Lymphocytes # (auto) 1.8 10 ^3/uL (0.4-5.4); Mean Corpuscular Hemoglobin 20.2 pg (28.0-32.0); Monocytes # (auto) 0.8 10 ^3/uL (0-1.3)
[2024-08-11 08:15] LABS: Hematocrit 34.8 % (36.0-46.0); Hemoglobin 10.6 g/dL (12.2-16.2); Lymphocytes % (auto) 23.5 % (10.0-50.0); Mean Corpuscular Hgb Conc. 30.3 g/dL (32.0-36.0); Mean Corpuscular Volume 66.5 fL (80.0-100.0); Monocytes % (auto) 10.6 % (0.0-12.0); Neutrophils % (auto) 64.8 % (37.0-80.0); Nucleated Red Blood Cells % 1.5 %; Platelet Count (auto) 200 10^3/uL (140-450); Red Blood Cells 5.23 10^6/uL (4.0-5.20); White Blood Cell 7.7 10^3/uL (4.4-10.8)
[2024-08-11 08:24] LABS: Anion Gap 11 (5-15); Calcium 9.3 mg/dL (8.7-10.4); Carbon Dioxide 25 mmol/L (20-31)
[2024-08-11 08:26] LABS: Red Cell Distribution Width 21.9 % (11.8-14.3)
[2024-08-11 08:29] LABS: BUN/Creatinine Ratio 13.2 (10.0-20.0); Blood Urea Nitrogen 16 mg/dL (9-23); Glucose 99 mg/dL (74-106)
[2024-08-11 08:31] LABS: Chloride 109 mmol/L (98-107); Sodium 145 mmol/L (136-145)
--- NOTE | 2024-08-11 08:38 | DVH ---
CHEST RADIOGRAPH Indication: sob Technique: Single frontal view of the chest was obtained COMPARISON: XY CHEST PORTABLE on DOS: 07/06/23, CHEST PORTABLE on DOS: 09/02/20 FINDINGS: Lines and Tubes: None Lungs: Increased interstitial prominence Pleura: No effusion. No pneumothorax. Cardiomediastinal contours: Cardiomegaly Bones: Unremarkable IMPRESSION: Pulmonary vascular congestion
[2024-08-11 08:50] LABS: Anisocytosis Slight; Hypochromia Moderate
[2024-08-11 08:51] LABS: Platelet Estimate Adequate; Tear Drop Cells FEW
[2024-08-11] MEDS: methylPREDNISolone SOD SUCC 125 MG/2 ML VL IV ONE (09:02)
[2024-08-11] MEDS: FUROSEMIDE 20 MG/2 ML VIAL IV ONE ×2 (09:06→14:00)
[2024-08-11 10:46] LABS: Urine Bacteria FEW /hpf (None Seen); Urine Blood Negative /uL (Negative); Urine Clarity Clear (Clear); Urine Color Yellow (Yellow); Urine Hyaline Cast FEW /lpf (0 - 2); Urine Protein, UAD 1+ (Negative); Urine Squamous Epithelial Cell FEW /hpf (<5); Urine Urobilinogen 3 mg/dL (Negative); Urine WBC 3 /HPF (0-5)
[2024-08-11] MEDS ORDERED: ONDANSETRON HCL 4 MG/2 ML VIAL IV PRN (14:00)
[2024-08-11] MEDS ORDERED: hydrALAZINE HCL 20 MG/ML VL IV PRN (14:00)
[2024-08-11] MEDS ORDERED: ALBUTEROL SULF 2.5 MG/0.5ML(0.5%) NEB SOLN NEB PRN (14:00)
[2024-08-11] MEDS ORDERED: MORPHINE SULFATE INJ 2 MG/ml SYRG IV PRN (14:00)
[2024-08-11] MEDS ORDERED: IPRATROPIUM BROM 0.5 MG/2.5ML INH SOL NEB PRN (14:00)
[2024-08-11] MEDS ORDERED: NITROGLYCERIN 0.4 MG SL TAB SL PRN (14:00)
--- NOTE | 2024-08-11 14:03 | DVHHP2 ---
History of Present Illness Reason for Visit: Shortness of breaths History of Present Illness 73-year-old female with a history of atrial fibrillation, CHF, COPD, asthma, hypertension, seizures, dyslipidemia she comes with a chief complaint of shortness of breaths for 2 weeks associated with dry cough She had the flu about a month ago and she never recovered after that He is retaining fluid in her legs She is complaining of orthopnea Cardiovascular: AFIB, CHF, HTN, hyperipidemia Pulmonary: Asthma, COPD CAFETERIA CASHIER: Seizure Review of Systems Respiratory: Cough, Dry, Shortness of breath, SOB with excertion Cardiovascular: Orthopnea, Edema Gastrointestinal: Nausea Allergies: Coded Allergies: LEROY Inhibitors (Verified Allergy, Severe, ANAPHYLAXIS, 01/20/18) Exam Vital Signs Vital Signs Date Time Temp Pulse Resp B/P (MAP) Pulse Ox O2 Delivery O2 Flow Rate FiO2 08/11/24 09:06 127/102 08/11/24 08:25 97.8 107 17 97 97.8 General Appearance: Alert, Oriented X3, Cooperative, moderate distress Respiratory: Other (Bilateral crackles at the bases) Cardiovascular: Other (Irregularly irregular) Extremities: Other (1+ edema bilaterally in the lower extremities) Labs/Xrays Labs Test 08/11/24 10:48 08/11/24 10:29 08/11/24 07:58 Range/Units Troponin I High Sensitivity 8 </=34 ng/L Urine Color Yellow Yellow Urine Clarity Clear Clear Urine pH 6.0 5.0-9.0 Urine Specific [place] 1.010 1.001-1.035 Urine Protein 1+ H Negative Urine Ketones Negative Negative Urine Blood Negative Negative /uL Urine Nitrite Negative Negative Urine Bilirubin Negative Negative Urine Urobilinogen 3 H Negative mg/dL Urine Leukocyte Esterase Trace Negative /uL Urine RBC None seen 0 - 4 /hpf Urine Microscopic WBC 3 0-5 /HPF Urine Squamous Epithelial Cells Few <5 /hpf Urine Bacteria Few H None Seen /hpf Urine Hyaline Casts Few 0 - 2 /lpf Urine Glucose Normal Normal mg/dL White Blood Count 7.7 4.4-10.8 10^3/uL Red Blood Count 5.23 H 4.0-5.20 10^6/uL Hemoglobin 10.6 L 12.2-16.2 g/dL Hematocrit 34.8 L 36.0-46.0 % Mean Corpuscular Volume 66.5 L 80.0-100.0 fL Mean Corpuscular Hemoglobin 20.2 L 28.0-32.0 pg Mean Corpuscular Hemoglobin Concent 30.3 L 32.0-36.0 g/dL Red Cell Distribution Width 21.9 H 11.8-14.3 % Platelet Count 200 140-450 10^3/uL Mean Platelet Volume 8.4 6.9-10.8 fL Neutrophils (%) (Auto) 64.8 37.0-80.0 % Lymphocytes (%) (Auto) 23.5 10.0-50.0 % Monocytes (%) (Auto) 10.6 0.0-12.0 % Eosinophils (%) (Auto) 0.5 0.0-7.0 % Basophils (%) (Auto) 0.6 0.0-2.0 % Neutrophils # (Auto) 5.0 1.6-8.6 10 ^3/uL Lymphocytes # (Auto) 1.8 0.4-5.4 10 ^3/uL Monocytes # (Auto) 0.8 0-1.3 10 ^3/uL Eosinophils # (Auto) 0 0-0.8 10 ^3/uL Basophils # (Auto) 0 0-0.2 10 ^3/uL Nucleated Red Blood Cells 1.5 % Platelet Estimate Adequate Hypochromasia (manual) Moderate Anisocytosis (manual) Slight Microcytosis Moderate Tear Drop Cells Few [place] Cells Few Sodium Level 145 136-145 mmol/L Potassium Level 4.0 3.5-5.1 mmol/L Chloride Level 109 H 98-107 mmol/L Carbon Dioxide Level 25 20-31 mmol/L Anion Gap 11 5-15 Blood Urea Nitrogen 16 9-23 mg/dL Creatinine 1.21 H 0.550-1.02 mg/dL Glomerular Filtration Rate Calc 47 >90 mL/min BUN/Creatinine Ratio 13.2 10.0-20.0 Serum Glucose 99 74-106 mg/dL Calcium Level 9.3 8.7-10.4 mg/dL B-Type Natriuretic Peptide 1119.81 0-100 pg/mL Assessment/Plan Assessment/Plan Acute hypoxic respiratory failure COPD exacerbation Heart failure exacerbation Hypertension Seizure disorder Hypertension Mixed hyperlipidemia Asthma Atrial fibrillation Plan Admit to telemetry Start Lasix Start IV steroids IV antibiotics Oxygen as needed Med neb treatments as needed Resume the home medications Resume Eliquis Monitor closely Plan discussed with: Patient My Orders Orders - KUSUM ALEX MD Procedure Category Date Status Time Admit ADMIT 08/11/24 Transmitted 13:51 Nitroglycerin PHA 08/11/24 Logged Sublingual (Ntrostat 14:00 Morphine Sulfate PHA 08/11/24 Logged Injection 14:00 Stat Ekg For Chest SIMÓN 08/11/24 In Process Pain 13:51 Notify Md Of Changes SIMÓN 08/11/24 In Process From Base 13:51 Websphere Administrator For SIMÓN 08/11/24 In Process 24 Hours 13:51 Emergency Dysrhythmia SIMÓN 08/11/24 In Process Protocol 13:51 Rhythm Strips Once SIMÓN 08/11/24 In Process Every Shift 13:51 Oxygen By Nasal RT 08/11/24 Transmitted Cannula 13:51 * Cardiology Consult CONS 08/11/24 Transmitted 13:51 Cardiac DIET 08/11/24 Transmitted Diet-2gna,Lofat,Lochol Dinner Echo 2d Mode Cardiac US 08/11/24 Logged DOP 13:51 Furosemide Injection PHA 08/11/24 Logged (Lasix Injection) 14:00 Furosemide Injection PHA 08/11/24 Logged (Lasix Injection) 18:00 Methylprednisolone PHA 08/11/24 Logged Sod Succ (Solu Medrol 22:00 Albuterol Medneb PHA 08/11/24 Logged (Ventolin Medneb) 14:00 Ipratropium Medneb PHA 08/11/24 Logged (Atrovent Medneb) 14:00 Ceftriaxone 1gm/50ml PHA 08/11/24 Logged D5w (Rocephin) 14:00 Ceftriaxone 1gm/50ml PHA 08/12/24 Logged D5w (Rocephin) 09:00 Azithromycin 500mg/ PHA 08/11/24 Logged 250ml (Zithromax 50 14:00 Azithromycin 500mg/ PHA 08/12/24 Logged 250ml (Zithromax 50 10:00 Acetaminophen Tablet PHA 08/11/24 Logged (Tylenol Tablet) 14:00 Ondansetron Hcl PHA 08/11/24 Logged (Zofran) 14:00 Pantoprazole Tablet PHA 08/11/24 Logged (Protonix Tablet) 14:00 Pantoprazole Tablet PHA 08/12/24 Logged (Protonix Tablet) 06:00 Apixaban (Eliquis) PHA 08/11/24 Logged 22:00 Amlodipine Tablet PHA 08/11/24 Verified (Norvasc Tablet) 14:00 Amlodipine Tablet PHA 08/12/24 Verified (Norvasc Tablet) 10:00 Hydralazine Injection PHA 08/11/24 Verified (Apresoline Inject 14:00 Date of Service: Aug 11, 2024 Billing Provider: KUSUM ALEX MD Common Visit Codes: NOT BILLABLE KUSUM ALEX MD Aug 11, 2024 14:03
[2024-08-11 14:06] VITALS: BP 127/102; PULSE 107; RESP 17; TEMP 97.8; O2SAT 97
[2024-08-11 14:24] VITALS: O2SAT 97
[2024-08-11] MEDS: amLODIPine BESYLATE 5 MG TAB PO ONE (18:23)
[2024-08-11] MEDS: FUROSEMIDE 40 MG/4 ML VIAL IV SCH (18:23)
[2024-08-11] MEDS: AZITHROMYCIN 500MG/ 250ML 250 ML IV ONE (18:24)
[2024-08-11] MEDS: cefTRIAXone 1GM/50ML D5W 50 ML IV ONE (18:24)
[2024-08-11] MEDS: PANTOPRAZOLE 40 MG TAB PO ONE (18:24)
[2024-08-11 22:16] VITALS: O2SAT 94; O2SAT 95
[2024-08-11] MEDS: APIXABAN 5 MG TAB PO SCH (22:22)
[2024-08-11] MEDS: methylPREDNISolone SOD SUCC 40 MG/ML VL IV SCH (22:22)
[2024-08-11] MEDS: levETIRAcetam 500 MG TAB PO SCH (22:22)
[2024-08-11 22:46] VITALS: BP 143/108; PULSE 122; RESP 19; TEMP 97.6; O2SAT 80
[2024-08-11 23:30] VITALS: BP 143/108; PULSE 122; RESP 19; TEMP 97.6; O2SAT 80
[2024-08-12] VITALS (10 sets, daily range): BP systolic 102–132; BP diastolic 63–90; PULSE 90–131; RESP 17–20; TEMP 97.3–97.9; O2SAT 92–99
[2024-08-12] MEDS: PANTOPRAZOLE 40 MG TAB PO SCH (05:52)
[2024-08-12 06:28] LABS: Basophils # (auto) 0 10 ^3/uL (0-0.2); Basophils % (auto) 0.3 % (0.0-2.0); Eosinophils # (auto) 0 10 ^3/uL (0-0.8); Hemoglobin 10.4 g/dL (12.2-16.2); Lymphocytes # (auto) 0.7 10 ^3/uL (0.4-5.4); Monocytes # (auto) 0.2 10 ^3/uL (0-1.3); Neutrophils # (auto) 4.8 10 ^3/uL (1.6-8.6)
[2024-08-12 06:32] LABS: Hematocrit 33.4 % (36.0-46.0); Lymphocytes % (auto) 12.5 % (10.0-50.0); Mean Corpuscular Hgb Conc. 31.1 g/dL (32.0-36.0); Mean Corpuscular Volume 64.4 fL (80.0-100.0); Monocytes % (auto) 3.2 % (0.0-12.0); Nucleated Red Blood Cells % 0.6 %; Platelet Count (auto) 214 10^3/uL (140-450); Red Blood Cells 5.18 10^6/uL (4.0-5.20); White Blood Cell 5.8 10^3/uL (4.4-10.8)
[2024-08-12 06:36] LABS: Red Cell Distribution Width 22.1 % (11.8-14.3)
[2024-08-12 06:39] LABS: Alanine Aminotransferase 21 U/L (7-40); Albumin 4.2 g/dL (3.2-4.8); Anion Gap 9 (5-15); Aspartate Aminotransferase 20 U/L (13-40); BUN/Creatinine Ratio 17.3 (10.0-20.0); Blood Urea Nitrogen 19 mg/dL (9-23); Calcium 9.2 mg/dL (8.7-10.4); Carbon Dioxide 26 mmol/L (20-31); Chloride 107 mmol/L (98-107); Cholesterol 81 mg/dL (< 200); LDL Cholesterol 45 mg/dL (< 100); Magnesium 1.8 mg/dL (1.6-2.6); Potassium 3.8 mmol/L (3.5-5.1); Sodium 142 mmol/L (136-145); Triglycerides 71 mg/dL (< 150)
[2024-08-12 06:48] LABS: Alkaline Phosphatase 174 U/L (46-116); Bilirubin, Total 1.3 mg/dL (0.2-1.0); Glucose 151 mg/dL (74-106); HDL Cholesterol 27 mg/dL (40-59)
[2024-08-12 07:31] LABS: Total Protein 6.9 g/dL (5.7-8.2)
[2024-08-12] MEDS: ACETAMINOPHEN 325 MG TAB PO PRN (09:37)
[2024-08-12] MEDS: cefTRIAXone 1GM/50ML D5W 50 ML IV SCH (09:37)
[2024-08-12] MEDS: amLODIPine BESYLATE 5 MG TAB PO SCH (09:49)
[2024-08-12] MEDS: AZITHROMYCIN 500MG/ 250ML 250 ML IV SCH (11:02)
--- NOTE | 2024-08-12 11:56 | DVHPN2 ---
Subjective Feels a little better Less short of breath Echo is pending Changes from previous H/P or p: Changes Cardiovascular: Orthopnea, Edema Respiratory: Cough, Dry, Shortness of breath, SOB with excertion Gastrointestinal: Nausea Objective Vitals Vital Signs Date Time Temp Pulse Resp B/P (MAP) Pulse Ox O2 Delivery O2 Flow Rate FiO2 08/12/24 09:49 108/67 08/12/24 09:00 97.5 114 20 92 97.5 08/12/24 08:42 Room Air 0.0 08/12/24 08:42 21 Intake/Output Intake and Output 08/12/24 07:00 Intake Total 300 ml Balance 300 ml Intake Oral 300 ml # Voids 1 General Appearance: Alert, Oriented X3, Cooperative, mild distress Lungs: Other (Bilateral crackles at the bases) Cardiovascular: Regular rate, Normal S1, Normal S2 Abdomen: Normal bowel sounds, Soft, No tenderness Extremities: Other (Trace edema bilaterally) Medications Current Medications Medications Dose Ordered Sig/Ziyad Route Start Time Stop Time Status Last Admin Dose Admin Nitroglycerin 0.4 mg Q5MINP PRN SL 08/11/24 14:00 Morphine Sulfate 2 mg Q30M PRN IV 08/11/24 14:00 Furosemide 40 mg BIDD IV 08/11/24 18:00 08/12/24 05:52 40 MG Methylprednisolone Sodium Succinate 40 mg BID IV 08/11/24 22:00 08/12/24 09:37 40 MG Albuterol 2.5 mg Q6HPRN PRN NEB 08/11/24 14:00 Ipratropium [place] 0.5 mg Q6HPRN PRN NEB 08/11/24 14:00 Ceftriaxone Sodium 50 ml @ 100 mls/hr DAILY@09 IV 08/12/24 09:00 08/12/24 09:37 100 MLS/HR Azithromycin 250 ml @ 125 mls/hr DAILY IV 08/12/24 10:00 08/12/24 11:02 125 MLS/HR Acetaminophen 650 mg Q6HP PRN PO 08/11/24 14:00 08/12/24 09:37 650 MG Ondansetron HCl 4 mg Q4HPRN PRN IV 08/11/24 14:00 Pantoprazole Sodium 40 mg DAILY@0600 PO 08/12/24 06:00 08/12/24 05:52 40 MG Apixaban 5 mg BID PO 08/11/24 22:00 08/12/24 09:37 5 MG Amlodipine Besylate 10 mg DAILY PO 08/12/24 10:00 08/12/24 09:49 10 MG Hydralazine HCl 10 mg Q6HP PRN IV 08/11/24 14:00 Levetiracetam 1,000 mg BID PO 08/11/24 22:00 08/12/24 09:37 1,000 MG Laboratory Results Laboratory Tests 08/12/24 06:09 Chemistry Test 08/12/24 06:09 Albumin 4.2 g/dL (3.2-4.8) Calcium Level 9.2 mg/dL (8.7-10.4) Magnesium Level 1.8 mg/dL (1.6-2.6) Total Protein 6.9 g/dL (5.7-8.2) Lipid panel Test 08/12/24 06:09 Cholesterol Level 81 mg/dL (< 200) HDL Cholesterol 27 mg/dL (40-59) L Triglycerides Level 71 mg/dL (< 150) LFT Test 08/12/24 06:09 Alanine Aminotransferase (ALT) 21 U/L (7-40) Alkaline Phosphatase 174 U/L (46-116) H Aspartate Amino Transferase (AST) 20 U/L (13-40) Total Bilirubin 1.3 mg/dL (0.2-1.0) H HgA1c, TSH Test 08/12/24 06:09 Thyroid Stimulating Hormone (TSH) 0.39 uIU/mL (0.55-4.78) L Urinalysis Test 08/11/24 10:29 Urine Color Yellow (Yellow) Urine Clarity Clear (Clear) Urine pH 6.0 (5.0-9.0) Urine Specific [place] 1.010 (1.001-1.035) Urine Protein 1+ (Negative) H Urine Ketones Negative (Negative) Urine Blood Negative /uL (Negative) Urine Nitrite Negative (Negative) Urine Bilirubin Negative (Negative) Urine Urobilinogen 3 mg/dL (Negative) H Urine Leukocyte Esterase Trace /uL (Negative) Urine RBC None seen /hpf (0 - 4) Urine Microscopic WBC 3 /HPF (0-5) Urine Squamous Epithelial Cells Few /hpf (<5) Urine Bacteria Few /hpf (None Seen) H Urine Hyaline Casts Few /lpf (0 - 2) Urine Glucose Normal mg/dL (Normal) Assessment/Plan Assessment/Plan Acute hypoxic respiratory failure COPD exacerbation Heart failure exacerbation Hypertension Seizure disorder Hypertension Mixed hyperlipidemia Asthma Atrial fibrillation Plan Admit to telemetry Start Lasix Start IV steroids IV antibiotics Oxygen as needed Med neb treatments as needed Resume the home medications Resume Eliquis Monitor closely 08/12/2024: Continue the current management of Lasix and IV steroids and IV antibiotics Echo is pending Monitor closely The rest of the management will depend on the hospital course Plan discussed with: Patient My Orders Orders - KUSUM ALEX MD Procedure Category Date Status Time Admit ADMIT 08/11/24 Transmitted 13:51 Nitroglycerin PHA 08/11/24 In Process Sublingual (Ntrostat 14:00 Morphine Sulfate PHA 08/11/24 In Process Injection 14:00 Stat Ekg For Chest SIMÓN 08/11/24 In Process Pain 13:51 Notify Md Of Changes SIMÓN 08/11/24 In Process From Base 13:51 Bag Machine Helper For SIMÓN 08/11/24 In Process 24 Hours 13:51 Emergency Dysrhythmia SIMÓN 08/11/24 In Process Protocol 13:51 Rhythm Strips Once SIMÓN 08/11/24 In Process Every Shift 13:51 Oxygen By Nasal RT 08/11/24 Transmitted Cannula 13:51 Cardiac DIET 08/11/24 Transmitted Diet-2gna,Lofat,Lochol Dinner Furosemide Injection PHA 08/11/24 In Process (Lasix Injection) 18:00 Methylprednisolone PHA 08/11/24 In Process Sod Succ (Solu Medrol 22:00 Albuterol Medneb PHA 08/11/24 In Process (Ventolin Medneb) 14:00 Ipratropium Medneb PHA 08/11/24 In Process (Atrovent Medneb) 14:00 Ceftriaxone 1gm/50ml PHA 08/12/24 In Process D5w (Rocephin) 09:00 Azithromycin 500mg/ PHA 08/12/24 In Process 250ml (Zithromax 50 10:00 Acetaminophen Tablet PHA 08/11/24 In Process (Tylenol Tablet) 14:00 Ondansetron Hcl PHA 08/11/24 In Process (Zofran) 14:00 Pantoprazole Tablet PHA 08/12/24 In Process (Protonix Tablet) 06:00 Apixaban (Eliquis) PHA 08/11/24 In Process 22:00 Amlodipine Tablet PHA 08/12/24 In Process (Norvasc Tablet) 10:00 Hydralazine Injection PHA 08/11/24 In Process (Apresoline Inject 14:00 Levetiracetam Tablet PHA 08/11/24 In Process (Keppra Tablet) 22:00 Date of Service: Aug 12, 2024 Billing Provider: KUSUM ALEX MD Common Visit Codes: NOT BILLABLE KUSUM ALEX MD Aug 12, 2024 11:56
--- NOTE | 2024-08-12 17:48 | MEDREC ---
[facility] Intervention Section I [facility] Intervention: Review courses of therapy (DUE TO PROLONG QTc > 500 PLEASE CONSIDER SWITCHING AZITHROMYCIN TO DOXYCYCLINE ) EMILE REYNA PHARMACIST Aug 12, 2024 17:48
[2024-08-13] VITALS (11 sets, daily range): BP systolic 110–129; BP diastolic 76–83; PULSE 65–130; RESP 17–18; TEMP 97.7–98.5; O2SAT 92–99
[2024-08-13 07:09] LABS: Calcium 9.3 mg/dL (8.7-10.4); Chloride 104 mmol/L (98-107); Potassium 3.9 mmol/L (3.5-5.1); Sodium 142 mmol/L (136-145)
[2024-08-13 07:10] LABS: Anion Gap 10 (5-15); Carbon Dioxide 28 mmol/L (20-31)
[2024-08-13 07:15] LABS: BUN/Creatinine Ratio 24.7 (10.0-20.0)
[2024-08-13 07:16] LABS: Magnesium 2.2 mg/dL (1.6-2.6)
[2024-08-13 07:22] LABS: Blood Urea Nitrogen 24 mg/dL (9-23); Glucose 127 mg/dL (74-106)
[2024-08-13] MEDS ORDERED: RESPMIS2 XX (12:19)
--- NOTE | 2024-08-13 12:21 | DVHPN2 ---
Subjective Feels a little better Less short of breath Echo is pending Changes from previous H/P or p: Changes Cardiovascular: Orthopnea, Edema Respiratory: Cough, Dry, Shortness of breath, SOB with excertion Gastrointestinal: Nausea Objective Vitals Vital Signs Date Time Temp Pulse Resp B/P (MAP) Pulse Ox O2 Delivery O2 Flow Rate FiO2 08/13/24 09:16 116/76 08/13/24 09:00 97.8 130 18 94 97.8 08/13/24 07:48 Room Air* 0 21 Intake/Output Intake and Output 08/13/24 07:00 Intake Total 2000 ml Output Total 1200 ml Balance 800 ml Intake Oral 1700 ml IV Total 300 ml Output Urine Total 1200 ml # Voids 3 General Appearance: Alert, Oriented X3, Cooperative, mild distress Lungs: Other (Bilateral crackles at the bases) Cardiovascular: Regular rate, Normal S1, Normal S2 Abdomen: Normal bowel sounds, Soft, No tenderness Extremities: Other (Trace edema bilaterally) Medications Current Medications Medications Dose Ordered Sig/Ziyad Route Start Time Stop Time Status Last Admin Dose Admin Nitroglycerin 0.4 mg Q5MINP PRN SL 08/11/24 14:00 Morphine Sulfate 2 mg Q30M PRN IV 08/11/24 14:00 Furosemide 40 mg BIDD IV 08/11/24 18:00 08/13/24 05:44 40 MG Methylprednisolone Sodium Succinate 40 mg BID IV 08/11/24 22:00 08/13/24 09:10 40 MG Albuterol 2.5 mg Q6HPRN PRN NEB 08/11/24 14:00 Ipratropium [place] 0.5 mg Q6HPRN PRN NEB 08/11/24 14:00 Ceftriaxone Sodium 50 ml @ 100 mls/hr DAILY@09 IV 08/12/24 09:00 08/13/24 09:12 100 MLS/HR Acetaminophen 650 mg Q6HP PRN PO 08/11/24 14:00 08/13/24 09:22 650 MG Ondansetron HCl 4 mg Q4HPRN PRN IV 08/11/24 14:00 Pantoprazole Sodium 40 mg DAILY@0600 PO 08/12/24 06:00 08/13/24 05:40 40 MG Apixaban 5 mg BID PO 08/11/24 22:00 08/13/24 09:15 5 MG Hydralazine HCl 10 mg Q6HP PRN IV 08/11/24 14:00 Levetiracetam 1,000 mg BID PO 08/11/24 22:00 08/13/24 09:15 1,000 MG Doxycycline Monohydrate 100 mg Q12HR PO 08/13/24 22:00 Metoprolol Tartrate 25 mg BID PO 08/13/24 22:00 Patient Own Medication 1 tab BIDWM PO 08/13/24 18:00 UNV Laboratory Results Laboratory Tests 08/12/24 06:09 08/13/24 06:08 Chemistry Test 08/13/24 06:08 Calcium Level 9.3 mg/dL (8.7-10.4) Magnesium Level 2.2 mg/dL (1.6-2.6) Urinalysis Test 08/11/24 10:29 Urine Color Yellow (Yellow) Urine Clarity Clear (Clear) Urine pH 6.0 (5.0-9.0) Urine Specific [place] 1.010 (1.001-1.035) Urine Protein 1+ (Negative) H Urine Ketones Negative (Negative) Urine Blood Negative /uL (Negative) Urine Nitrite Negative (Negative) Urine Bilirubin Negative (Negative) Urine Urobilinogen 3 mg/dL (Negative) H Urine Leukocyte Esterase Trace /uL (Negative) Urine RBC None seen /hpf (0 - 4) Urine Microscopic WBC 3 /HPF (0-5) Urine Squamous Epithelial Cells Few /hpf (<5) Urine Bacteria Few /hpf (None Seen) H Urine Hyaline Casts Few /lpf (0 - 2) Urine Glucose Normal mg/dL (Normal) Assessment/Plan Assessment/Plan Acute hypoxic respiratory failure COPD exacerbation Heart failure exacerbation Hypertension Seizure disorder Hypertension Mixed hyperlipidemia Asthma Atrial fibrillation RVR Plan Admit to telemetry Start Lasix Start IV steroids IV antibiotics Oxygen as needed Med neb treatments as needed Resume the home medications Resume Eliquis Monitor closely 08/12/2024: Continue the current management of Lasix and IV steroids and IV antibiotics Echo is pending Monitor closely The rest of the management will depend on the hospital course 08/13/2024: Patient is having AFib RVR, heart rate 120-130 She is feeling better Pedal edema is better She is not having much cough today Discontinue amlodipine Start metoprolol tartrate 25 mg twice a day Resume Multaq home dose Doxycycline Rocephin Discontinue Zithromax Eliquis Continue IV Lasix Echocardiogram is still pending Cardiac consult Monitor closely The patient needs a hand-held nebulizer She also has home O2 but she says her machine is malfunctioning Consult social media intern for checkup on her home O2 machine Plan discussed with: Patient My Orders Orders - KUSUM ALEX MD Procedure Category Date Status Time Doxycycline Tablet PHA 08/13/24 In Process (Vibramycin Tablet) 22:00 Metoprolol Tartrate PHA 08/13/24 In Process Tablet (Lopressor Ta 22:00 (Nf) Dronedarone PHA 08/13/24 Logged Hydrochloride (Multaq) 18:00 Date of Service: Aug 13, 2024 Billing Provider: KUSUM ALEX MD Common Visit Codes: NOT BILLABLE KUSUM ALEX MD Aug 13, 2024 12:21
[2024-08-13] MEDS: DOXYCYCLINE 100 MG TAB/CAP PO ONE (12:36)
[2024-08-13] MEDS: METOPROLOL TARTRATE 25 MG TAB PO ONE (12:37)
--- NOTE | 2024-08-13 13:31 | DVHINCON2 ---
DATE OF CONSULTATION: 08/12/2024 REFERRING PHYSICIAN: Joyce Costa MD CONSULTING PHYSICIAN: Anthony Johnson MD INDICATION: Shortness of breath. HISTORY OF PRESENT ILLNESS: The patient is a 73-year-old female with history of hypertension; AFib flutter, on anticoagulation; cardiomyopathy; CHF; COPD, who initially presented to the hospital with complaints of worsening shortness of breath. She was admitted with diagnosis of decompensated heart failure and COPD exacerbation, who is on IV Lasix and COPD treatment with some improvement in her symptoms. Denies any chest pain. PAST MEDICAL HISTORY: * Cardiomyopathy. * CHF. * Atrial fibrillation. * COPD. * Hypertension. MEDICATIONS: Per med rec. ALLERGIES: LEROY INHIBITOR. PHYSICAL EXAMINATION: GENERAL: Alert and awake, in no form of cardiopulmonary distress. VITAL SIGNS: Blood pressure , pulse per minute, saturation 95%. HEENT: No carotid bruits. No jugular venous distention. CHEST: Bilateral air entry. Few rhonchi and crackles. CARDIOVASCULAR: Precordial and carotid pulses palpable. Normal S1, S2. Irregularly irregular. EXTREMITIES: No edema. DIAGNOSTIC DATA: White count 5, hemoglobin 10, platelets 214. Sodium 142, potassium 3.9, creatinine is 0.9. Troponin is negative. BNP is 1119. ASSESSMENT: * Worsening shortness of breath, multifactorial. * Acute on chronic systolic heart failure. * Chronic obstructive pulmonary disease exacerbation. * Atrial fibrillation. * Cardiomyopathy. * Hypertension. * Dyslipidemia. RECOMMENDATIONS: * Agree with diuresis. * Continue IV Lasix. * Restrict salt and fluid intake. * Monitor input and output closely. * Continue COPD treatment. * We will review echo. * Start Entresto. * Start beta lucie. * Continue anticoagulation therapy. Thank you for allowing me to participate in the care of this patient. MD KEVEN Coronel/ZA/ARMANDO TID: [id number] RECEIPT: [id number]
[2024-08-13] MEDS: DIGOXIN (250MCG/ML) 2 ML AMPULE IV ONE (15:04)
[2024-08-13] MEDS: DRONEDARONE HCL 400 MG TAB PO SCH (17:30)
[2024-08-13] MEDS: METOPROLOL TARTRATE 25 MG TAB PO SCH (22:08)
[2024-08-13] MEDS: DOXYCYCLINE 100 MG TAB/CAP PO SCH (22:09)
--- NOTE | 2024-08-13 22:48 | DVHINCON2 ---
Date of service: Aug 13, 2024 Referring Physician Joyce Costa MD Reason for Consultation Acute hypoxic respiratory failure and COPD exacerbation History of Present Illness A 73-year-old woman with past medical history of COPD, asthma, AFib, CHF, hypertension, dyslipidemia and seizures, who presented to ED on 08/11/24 with c/o shortness of breath for 2 weeks associated with dry cough. Pt stated she had the flu about a month ago and she never recovered after that. She is retaining fluid in her legs, complaining of orthopnea. Patient was admitted for further care, and pulmonary consultation is requested for evaluation and management of acute hypoxic respiratory failure and COPD exacerbation. Review of Systems: 14-point review of systems negative unless otherwise noted above. Past Medical History: Asthma, COPD, atrial fibrillation, congestive heart failure, hypertension, dyslipidemia, seizure Past Surgical History: None Medications: Reviewed. Allergies: LEROY inhibitors. Family History: Cardiovascular disease Pancreatic disease Hypertension Social History: Nonsmoker. No alcohol or illicit drug use. Family History: Cardiovascular disease G8 FATHER FH: heart attack G8 FATHER FH: pancreatic disease G8 MOTHER Hypertension G8 MOTHER Allergies: Coded Allergies: LEROY Inhibitors (Verified Allergy, Severe, ANAPHYLAXIS, 01/20/18) Home Meds Active Scripts Apixaban Base (ELIQUIS) 5 Mg Tab, 5 MG PO BID for 30 Days, #60 TAB 3 Refills Prov:JOYCE COSTA MD 08/14/24 Methylprednisolone (Medrol Dosepak) 4 Mg Reid, 4 MG PO UD, #21 TAB UAD Prov:JOYCE COSTA MD 08/14/24 Sacubitril-Valsartan (Entresto 24-26 mg) 1 Tab Tab, 1 TAB PO BID for 30 Days, #60 TAB 3 Refills Prov:JOYCE COSTA MD 08/14/24 Furosemide (Lasix) 40 Mg Tab, 40 MG PO BID for 30 Days, #60 TAB 3 Refills Prov:JOYCE COSTA MD 08/14/24 Respiratory Therapy Supplies (Full Kit Nebulizer Set) Set Mis, NEB XX, #1 Prov:JOYCE COSTA MD 08/13/24 Reported Medications Albuterol Sulfate (Albuterol Sulfate Hfa) 108 Mcg/Act Aer, 2 PUFF IN Q6HR PRN for WHEEZING for 25 Days, #18 08/12/24 Metoprolol Tartrate (Metoprolol Tartrate) 25 Mg Tab, 1 TAB PO BID for 90 Days, #180 08/12/24 Dronedarone Hydrochloride (Multaq) 400 Mg Tab, 1 TAB PO BIDWM for 90 Days, #180 08/12/24 Pantoprazole Sodium Sesquihydr (Protonix) 40 Mg Tab, 1 TAB PO DAILY for 90 Days 08/12/24 Levetiracetam (KEPPRA TABLET) 500 Mg Tb, 500 MG PO TID 02/27/18 Discontinued Reported Medications Losartan Potassium (Losartan Potassium) 50 Mg Tab, 1 TAB PO DAILY for 100 Days, #100 08/12/24 Furosemide (Furosemide) 40 Mg Tab, 1 TAB PO DAILY for 90 Days, #90 08/12/24 Hctz (Hydrochlorothiazide) 25 Mg Tab, 25 MG PO DAILY, TAB 02/27/18 Amlodipine Besylate (Amlodipine Besylate) 5 Mg Tab, 10 MG PO DAILY for 30 Days, MG 02/27/18 Nebivolol Hcl (Bystolic) 5 Mg Tab, 2.5 MG PO, TAB 02/27/18 Hydralazine Hcl (Hydralazine Hcl) 50 Mg Tab, 100 MG PO Q8HR, MG 02/27/18 Albuterol Sulfate (VENTOLIN MDI) 90 Mcg Ih, 90 MCG IN Q4HP 02/27/18 Current Medications Current Medications Medications (Trade) Dose Ordered Sig/Ziyad Route PRN Reason Start Time Stop Time Status Last Admin Doxycycline Monohydrate (Vibramycin Tablet) 100 mg Q12HR PO 08/13/24 22:00 08/13/24 22:09 Metoprolol Tartrate (Lopressor Tablet) 25 mg BID PO 08/13/24 22:00 08/13/24 22:08 Dronedarone (MulTAQ) 400 mg BIDWM PO 08/13/24 18:00 08/13/24 17:30 Vital Signs Vital Signs Date Time Temp Pulse Resp B/P (MAP) Pulse Ox O2 Delivery O2 Flow Rate FiO2 08/13/24 22:08 74 125/78 08/13/24 21:00 98.2 18 96 98.2 08/13/24 19:57 Room Air* 0 21 Physical Exam Gen.: Patient lying in bed in no apparent distress. On supplemental oxygen. Head: Normocephalic, atraumatic. Eyes: EOMI/PERRLA. Ears: Normal hearing. Normal anatomy. Neck/trachea: Trachea midline, supple. Nose: Normal external anatomy. Mouth: Moist mucous membranes. Chest: Decreased air entry bilaterally. No wheezing or rhonchi. Cardiovascular: Positive S1, positive S2. Regular rate and rhythm. Abdomen: Positive bowel sounds in all 4 quadrants. Soft, non-tender, non- distended. : Deferred. Rectal: Deferred. Skin: Warm, dry. Intact. Extremities: 2+ radial pulses bilaterally. No lower extremity edema. Neuro: Awake, alert, oriented x3. No gross motor or sensory deficits. Cranial nerves II through XII intact. Gait not assessed. Labs/Diagnostic Data Labs Test 08/13/24 06:08 08/12/24 06:09 08/11/24 10:48 08/11/24 10:29 Range/Units Sodium Level 142 136-145 mmol/L Potassium Level 3.9 3.5-5.1 mmol/L Chloride Level 104 98-107 mmol/L Carbon Dioxide Level 28 20-31 mmol/L Anion Gap 10 5-15 Blood Urea Nitrogen 24 H 9-23 mg/dL Creatinine 0.97 0.550-1.02 mg/dL Glomerular Filtration Rate Calc 61 >90 mL/min BUN/Creatinine Ratio 24.7 H 10.0-20.0 Serum Glucose 127 H 74-106 mg/dL Calcium Level 9.3 8.7-10.4 mg/dL Magnesium Level 2.2 1.6-2.6 mg/dL White Blood Count 5.8 4.4-10.8 10^3/uL Red Blood Count 5.18 4.0-5.20 10^6/uL Hemoglobin 10.4 L 12.2-16.2 g/dL Hematocrit 33.4 L 36.0-46.0 % Mean Corpuscular Volume 64.4 L 80.0-100.0 fL Mean Corpuscular Hemoglobin 20.0 L 28.0-32.0 pg Mean Corpuscular Hemoglobin Concent 31.1 L 32.0-36.0 g/dL Red Cell Distribution Width 22.1 H 11.8-14.3 % Platelet Count 214 140-450 10^3/uL Mean Platelet Volume 8.3 6.9-10.8 fL Neutrophils (%) (Auto) 84.0 H 37.0-80.0 % Lymphocytes (%) (Auto) 12.5 10.0-50.0 % Monocytes (%) (Auto) 3.2 0.0-12.0 % Eosinophils (%) (Auto) 0.0 0.0-7.0 % Basophils (%) (Auto) 0.3 0.0-2.0 % Neutrophils # (Auto) 4.8 1.6-8.6 10 ^3/uL Lymphocytes # (Auto) 0.7 0.4-5.4 10 ^3/uL Monocytes # (Auto) 0.2 0-1.3 10 ^3/uL Eosinophils # (Auto) 0 0-0.8 10 ^3/uL Basophils # (Auto) 0 0-0.2 10 ^3/uL Nucleated Red Blood Cells 0.6 % Total Bilirubin 1.3 H 0.2-1.0 mg/dL Aspartate Amino Transferase (AST) 20 13-40 U/L Alanine Aminotransferase (ALT) 21 7-40 U/L Alkaline Phosphatase 174 H 46-116 U/L Total Protein 6.9 5.7-8.2 g/dL Albumin 4.2 3.2-4.8 g/dL Triglycerides Level 71 < 150 mg/dL Cholesterol Level 81 < 200 mg/dL LDL Cholesterol 45 < 100 mg/dL HDL Cholesterol 27 L 40-59 mg/dL Thyroid Stimulating Hormone (TSH) 0.39 L 0.55-4.78 uIU/mL Troponin I High Sensitivity 8 </=34 ng/L Urine Color Yellow Yellow Urine Clarity Clear Clear Urine pH 6.0 5.0-9.0 Urine Specific [place] 1.010 1.001-1.035 Urine Protein 1+ H Negative Urine Ketones Negative Negative Urine Blood Negative Negative /uL Urine Nitrite Negative Negative Urine Bilirubin Negative Negative Urine Urobilinogen 3 H Negative mg/dL Urine Leukocyte Esterase Trace Negative /uL Urine RBC None seen 0 - 4 /hpf Urine Microscopic WBC 3 0-5 /HPF Urine Squamous Epithelial Cells Few <5 /hpf Urine Bacteria Few H None Seen /hpf Urine Hyaline Casts Few 0 - 2 /lpf Urine Glucose Normal Normal mg/dL Test 08/11/24 07:58 Range/Units Platelet Estimate Adequate Hypochromasia (manual) Moderate Anisocytosis (manual) Slight Microcytosis Moderate Tear Drop Cells Few [place] Cells Few B-Type Natriuretic Peptide 1119.81 0-100 pg/mL Assessment Impression: Acute hypoxic respiratory failure Dependence on supplemental oxygen COPD exacerbation CHF exacerbation Asthma Atrial fibrillation w/ RVR Hypertension Seizure disorder Mixed hyperlipidemia Plan: Supplemental oxygen 4 LPM NC Titrate to keep O2 sats above 92%. Taper O2 as tolerated. Continue bronchodilators. Continue steroids Continue antibiotics Antiepileptic medication Diurese as tolerated w/ Lasix Monitor renal function. Monitor electrolytes. Supplement as necessary. Monitor ins and outs. GI prophylaxis - Protonix DVT prophylaxis. Prognosis: Poor given patient's multiple co-morbidities. Rest of plan per hospitalist and other consultants. Thank you Dr. Costa, for allowing me to participate in this patient's care. Further recommendations will depend on the patient's clinical course. Please do not hesitate to contact me if you have any questions or concerns. This medical document was created using an electronic medical record system with P21 dictation system. Although these documentations are being carefully reviewed, there may still be some phonetic and typographical changes. The errors are purely typographical, due to imperfection on the software program, and do not reflect any compromise in the patient's medical care. Plan discussed with: Patient, Other (GIDEON Kang/Dr. Costa) CLARIBEL STEWART MD Aug 13, 2024 22:48
[2024-08-14] VITALS (9 sets, daily range): BP systolic 102–133; BP diastolic 63–96; PULSE 57–81; RESP 17–18; TEMP 97.6–98.4; O2SAT 68–98
[2024-08-14 06:02] LABS: Basophils # (auto) 0 10 ^3/uL (0-0.2); Basophils % (auto) 0.1 % (0.0-2.0); Eosinophils # (auto) 0 10 ^3/uL (0-0.8); Hematocrit 34.8 % (36.0-46.0); Hemoglobin 10.7 g/dL (12.2-16.2); Lymphocytes # (auto) 0.5 10 ^3/uL (0.4-5.4); Lymphocytes % (auto) 5.1 % (10.0-50.0); Mean Corpuscular Hemoglobin 19.7 pg (28.0-32.0); Mean Corpuscular Hgb Conc. 30.6 g/dL (32.0-36.0); Mean Corpuscular Volume 64.5 fL (80.0-100.0); Monocytes # (auto) 0.2 10 ^3/uL (0-1.3); Monocytes % (auto) 2.3 % (0.0-12.0); Neutrophils # (auto) 8.6 10 ^3/uL (1.6-8.6); Neutrophils % (auto) 92.5 % (37.0-80.0); Nucleated Red Blood Cells % 0.7 %; Platelet Count (auto) 273 10^3/uL (140-450); Red Cell Distribution Width 21.9 % (11.8-14.3); White Blood Cell 9.3 10^3/uL (4.4-10.8)
[2024-08-14 06:03] LABS: Anisocytosis Slight; Hypochromia Marked; Platelet Estimate Adequate
[2024-08-14 06:52] LABS: Alanine Aminotransferase 18 U/L (7-40); Anion Gap 10 (5-15); Aspartate Aminotransferase 17 U/L (13-40); BUN/Creatinine Ratio 27.7 (10.0-20.0); Blood Urea Nitrogen 23 mg/dL (9-23); Calcium 9.3 mg/dL (8.7-10.4); Carbon Dioxide 27 mmol/L (20-31); Chloride 104 mmol/L (98-107); Magnesium 2.3 mg/dL (1.6-2.6); Potassium 3.8 mmol/L (3.5-5.1); Sodium 141 mmol/L (136-145); Total Protein 6.8 g/dL (5.7-8.2)
[2024-08-14 06:53] LABS: Albumin 4.2 g/dL (3.2-4.8); Bilirubin, Total 0.9 mg/dL (0.2-1.0)
[2024-08-14 06:54] LABS: Alkaline Phosphatase 152 U/L (46-116); Glucose 107 mg/dL (74-106)
[2024-08-14] MEDS ORDERED: SACU1TAB PO (11:17)
[2024-08-14] MEDS ORDERED: APIX5TAB PO (11:17)
[2024-08-14] MEDS ORDERED: FURO1TAB31 PO (11:17)
[2024-08-14] MEDS ORDERED: METH4PAK PO (11:17)
--- NOTE | 2024-08-14 11:21 | DVHDS2 ---
Discharge Summary Date of Admission Aug 11, 2024 at 13:51 Date of Discharge: Aug 14, 2024 Labs/Diagnostic Data: Laboratory Results Test 08/14/24 04:59 08/12/24 06:09 08/11/24 10:48 08/11/24 10:29 White Blood Count 9.3 10^3/uL (4.4-10.8) Red Blood Count 5.40 10^6/uL (4.0-5.20) Hemoglobin 10.7 g/dL (12.2-16.2) Hematocrit 34.8 % (36.0-46.0) Mean Corpuscular Volume 64.5 fL (80.0-100.0) Mean Corpuscular Hemoglobin 19.7 pg (28.0-32.0) Mean Corpuscular Hemoglobin Concent 30.6 g/dL (32.0-36.0) Red Cell Distribution Width 21.9 % (11.8-14.3) Platelet Count 273 10^3/uL (140-450) Mean Platelet Volume 8.2 fL (6.9-10.8) Neutrophils (%) (Auto) 92.5 % (37.0-80.0) Lymphocytes (%) (Auto) 5.1 % (10.0-50.0) Monocytes (%) (Auto) 2.3 % (0.0-12.0) Eosinophils (%) (Auto) 0.0 % (0.0-7.0) Basophils (%) (Auto) 0.1 % (0.0-2.0) Neutrophils # (Auto) 8.6 10 ^3/uL (1.6-8.6) Lymphocytes # (Auto) 0.5 10 ^3/uL (0.4-5.4) Monocytes # (Auto) 0.2 10 ^3/uL (0-1.3) Eosinophils # (Auto) 0 10 ^3/uL (0-0.8) Basophils # (Auto) 0 10 ^3/uL (0-0.2) Nucleated Red Blood Cells 0.7 % Platelet Estimate Adequate Hypochromasia (manual) Marked Anisocytosis (manual) Slight Microcytosis Marked Sodium Level 141 mmol/L (136-145) Potassium Level 3.8 mmol/L (3.5-5.1) Chloride Level 104 mmol/L (98-107) Carbon Dioxide Level 27 mmol/L (20-31) Anion Gap 10 (5-15) Blood Urea Nitrogen 23 mg/dL (9-23) Creatinine 0.83 mg/dL (0.550-1.02) Glomerular Filtration Rate Calc 73 mL/min (>90) BUN/Creatinine Ratio 27.7 (10.0-20.0) Serum Glucose 107 mg/dL (74-106) Calcium Level 9.3 mg/dL (8.7-10.4) Magnesium Level 2.3 mg/dL (1.6-2.6) Total Bilirubin 0.9 mg/dL (0.2-1.0) Aspartate Amino Transferase (AST) 17 U/L (13-40) Alanine Aminotransferase (ALT) 18 U/L (7-40) Alkaline Phosphatase 152 U/L (46-116) Total Protein 6.8 g/dL (5.7-8.2) Albumin 4.2 g/dL (3.2-4.8) Triglycerides Level 71 mg/dL (< 150) Cholesterol Level 81 mg/dL (< 200) LDL Cholesterol 45 mg/dL (< 100) HDL Cholesterol 27 mg/dL (40-59) Thyroid Stimulating Hormone (TSH) 0.39 uIU/mL (0.55-4.78) Troponin I High Sensitivity 8 ng/L (</=34) Urine Color Yellow (Yellow) Urine Clarity Clear (Clear) Urine pH 6.0 (5.0-9.0) Urine Specific [place] 1.010 (1.001-1.035) Urine Protein 1+ (Negative) Urine Ketones Negative (Negative) Urine Blood Negative /uL (Negative) Urine Nitrite Negative (Negative) Urine Bilirubin Negative (Negative) Urine Urobilinogen 3 mg/dL (Negative) Urine Leukocyte Esterase Trace /uL (Negative) Urine RBC None seen /hpf (0 - 4) Urine Microscopic WBC 3 /HPF (0-5) Urine Squamous Epithelial Cells Few /hpf (<5) Urine Bacteria Few /hpf (None Seen) Urine Hyaline Casts Few /lpf (0 - 2) Urine Glucose Normal mg/dL (Normal) Test 08/11/24 07:58 Tear Drop Cells Few [place] Cells Few B-Type Natriuretic Peptide 1119.81 pg/mL (0-100) Other Laboratory Tests 08/14/24 04:59 Brief Hx & Hospital Course: Final diagnoses: Acute hypoxic respiratory failure COPD exacerbation Heart failure exacerbation Hypertension Seizure disorder Hypertension Mixed hyperlipidemia Asthma Atrial fibrillation RVR 73-year-old female who was admitted for shortness of breaths and cough She was given IV Lasix and IV antibiotics and steroids and oxygen She has home O2 already at home She was seen by Cardiology and was recommended to continue this treatment She was supposed to be taking Entresto but she has not been taking it and therefore he will be started here Discontinue losartan Increase Lasix to 40 mg twice a day Echocardiogram is done but is still pending, Dr. Ball reviewed it and said that it looked like her ejection fraction is between 30-40% visually Patient is stable for discharge now Continue same home medications but increase the Lasix to twice a day and add Entresto Discontinue losartan Discontinue amlodipine Discontinue hydrochlorothiazide Follow up with the primary care physician as soon as possible Give a tapered dose prednisone Condition at Discharge: Stable Final Diagnosis/Problems List Acute hypoxic respiratory failure COPD exacerbation Heart failure exacerbation Hypertension Seizure disorder Hypertension Mixed hyperlipidemia Asthma Atrial fibrillation RVR Discharge Disposition: Home SNF Discharge Will this Physician continue t: No Discharge Statement: "Patient was advised to return to the ER or call 911 if any headaches, dizziness, shortness of breath, chest pain, abdominal pain, bleeding, fevers, or worsening of medical condition. Patient was counseled about treatment plan, medications, possible side effects, patientverbalized understanding. All questions were answered to the best of my ability. This discharge took greater then 30 minutes in planning, reviewing documentation, counseling the patient, and discussing with other team members." ASSESSMENT ASSESSMENT Assessment Date of Service: Aug 14, 2024 Billing Provider: KUSUM AELX MD Common Visit Codes: NOT BILLABLE KUSUM ALXE MD Aug 14, 2024 11:21
[2024-08-14] MEDS ORDERED: SACUBITRIL-VALSARTAN 24mg/26mg TAB PO SCH (22:00)
--- NOTE | 2024-08-14 22:48 | DVHPN2 ---
Progress Note - Dictate Date Seen: Aug 14, 2024 Medical Necessity Reason Pt with a Central, PICC or Fol: No Subjective Patient seen and examined at bedside. Remains on supplemental oxygen Overnight events reviewed. vital signs Vital Sign Date Time Temp Pulse Resp B/P (MAP) Pulse Ox O2 Delivery O2 Flow Rate FiO2 08/14/24 14:06 60 125/89 92 08/14/24 13:25 98.0 17 08/14/24 08:00 Room Air* 0 N/A Nasal Cannula* Total Intake and Output 08/13/24 08/13/24 08/14/24 15:00 23:00 07:00 Intake Total 100 ml 1150 ml 800 ml Balance 100 ml 1150 ml 800 ml objective Gen.: Patient lying in bed in no apparent distress. On supplemental oxygen. Head: Normocephalic, atraumatic. Eyes: EOMI/PERRLA. Ears: Normal hearing. Normal anatomy. Neck/trachea: Trachea midline, supple. Nose: Normal external anatomy. Mouth: Moist mucous membranes. Chest: Decreased air entry bilaterally. No wheezing or rhonchi. Cardiovascular: Positive S1, positive S2. Regular rate and rhythm. Abdomen: Positive bowel sounds in all 4 quadrants. Soft, non-tender, non- distended. : Deferred. Rectal: Deferred. Skin: Warm, dry. Intact. Extremities: 2+ radial pulses bilaterally. No lower extremity edema. Neuro: Awake, alert, oriented x3. No gross motor or sensory deficits. Cranial nerves II through XII intact. Gait not assessed. laboratory and microbiology Laboratory Tests 08/14/24 04:59 Test 08/14/24 04:59 Range/Units Serum Glucose 107 H 74-106 mg/dL Assessment/Plan Impression: Acute hypoxic respiratory failure Dependence on supplemental oxygen COPD exacerbation CHF exacerbation Asthma Atrial fibrillation w/ RVR Hypertension Seizure disorder Mixed hyperlipidemia Events: Remains on supplemental oxygen, 2 LPM NC Taper O2 as tolerated Complete steroid course Complete antibiotics Patient is stable for discharge from the pulmonary standpoint. Disposition per hospitalist. Follow up in 2-3 weeks in Pulmonary Clinic. Labs and imaging reviewed. Rest of plan as noted below. Plan: Supplemental oxygen Titrate to keep O2 sats above 92%. Continue steroids Continue antibiotics Antiepileptic medication Monitor renal function. Monitor electrolytes. Supplement as necessary. Monitor ins and outs. GI prophylaxis - Protonix DVT prophylaxis. Prognosis: Guarded given patient's multiple co-morbidities. Rest of plan per hospitalist and other consultants. Thank you Dr. Costa, for allowing me to participate in this patient's care. Further recommendations will depend on the patient's clinical course. Please do not hesitate to contact me if you have any questions or concerns. This medical document was created using an electronic medical record system with Hara dictation system. Although these documentations are being carefully reviewed, there may still be some phonetic and typographical changes. The errors are purely typographical, due to imperfection on the software program, and do not reflect any compromise in the patient's medical care. Plan discussed with: Patient, Other (GIDEON Lange) CLARIBEL STEWART MD Aug 14, 2024 22:48
--- NOTE | 2024-08-15 10:33 | DVHSR ---
APPROVED REPORT EXAM: Two-dimensional and M-mode echocardiogram with Doppler and color Doppler. Blood Pressure: 123/89 mmHg INDICATION Heart Failure RISK FACTORS Height: 5'5", Weight: 164 DIMENSIONS LVDd4.2 (3.8-5.7cm)LA (2D)4.5 (1.9-4.0cm)Aortic Root2.7 (2.0-3.7cm) LVDs3.8 (2.5-4.0cm)LA (MM) (1.9-4.0cm)Aortic Cusp Exc1.7 (1.5-2.0cm) EF (%) 25.0 (55-70%)Rt. Atrium5.0 (1.9-4.0cm)Asc. Aorta2.8 cm IVSd1.1 (0.7-1.1cm)RV (D)5.0 (1.8-2.4cm) PWd1.2 (0.7-1.1cm) Mitral Valve MitralMitral Stenosis E wave1.13m/sMV Mean GR.mmHg E/A ratio0.02D MVAcm2 Aortic Valve Aortic ValveAortic Stenosis V10.85m/Rogelio Mean GR.2mmHg V20.77m/Rogelio Peak GR.2mmHg LVOT Diameter1.8 (1.8-2.4cm)Doppler AVA2.81cm2 AI P 1/2 Opmq223.63ms Pulmonic Valve V20.94m/s Tricuspid Valve TR Velocity2.89m/s [id number] Other Information Quality : Technically LimitedRhythm : Technically limited study due to body habitus. Conclusion Technically good study. Undetermined rhythm. Concentric LVH. Biatrial enlargement. Right ventricular enlargement. Mild mitral annular calcification. Mild aortic sclerosis. Left ventricular systolic function is markedly diminished. EF is approximately 20% with global hypo kinesis. Predominant anterior hypokinesis. Decreased RV function. Severe tricuspid regurgitation. Bwkg-cy-mjbsoyph aortic insufficiency. Rruofuxd-af-frogyc mitral in sufficiency. Mild pulmonic insufficiency. Small pericardial effusion not hemodynamically significant. No intracardiac masses thrombi or vegetations.
== END 2024-08-14 14:00 | disposition home or self-care (01) | DRG 291 ==
LOC: EDBD 07:31 → ER 07:31 → OVERFLOW 13:51 → TELE-WESTW 22:29
PROVIDERS: ADMIT Internal Medicine Geriatric Medicine; ATTEND Internal Medicine Geriatric Medicine
DX: I11.0 Hypertensive heart disease with heart failure (principal); I50.23 Acute on chronic systolic (congestive) heart failure; J96.01 Acute respiratory failure with hypoxia; J44.1 Chronic obstructive pulmonary disease with (acute) exacerbation; I48.91 Unspecified atrial fibrillation; E78.2 Mixed hyperlipidemia; I42.9 Cardiomyopathy, unspecified; G40.909 Epilepsy, unspecified, not intractable, without status epilepticus; Z88.8 Allergy status to other drugs, medicaments and biological substances; Z79.899 Other long term (current) drug therapy; Z82.49 Family history of ischemic heart disease and other diseases of the circulatory system; Z99.81 Dependence on supplemental oxygen
CPT/HCPCS: 36415; 71045; 80048; 80053; 80061; 81001; 83735; 83880; 84443; 84484; 85025; 93005; 93306; 96365; 96375; 99291; 99292; G0378

== ENCOUNTER 2025-02-10 10:28 | Inpatient (IN) | payer OTHER, MEDICAID ==
[~2025-02-10] VITALS: Ht 165.1 cm; Wt 73.7 kg
[~2025-02-10 10:28] MED LIST changes: -ALBUAER3 IN; -AMLO1TAB22 PO; +APIX5TAB PO; +FURO1TAB31 PO; -FURO1TAB33 PO; -FURO40TA4 PO; -HYDR25TA5 PO; -HYDR50TA47 PO; -LOSA-534 PO; +METH4PAK PO; -NEBI5TAB10 PO; +RESPMIS2 XX; +SACU1TAB PO
--- NOTE | 2025-02-10 11:24 | ECG ---
[facility] Test Date: 2025-02-10 Test Time: 10:46:39 Pat Name: ALIREZA VILLEGAS Department: [facility] ED Room: [address] [place] [address] Gender: F [employer] Worker: MARIA C : 1950 Requested By: JANES CARBONE Order Number: [id number] Reading MD: Geronimo Huynh Measurements Intervals [place] Rate: 131 P: 0 [place]: 0 QRS: 23 QRSD: 78 T: 45 QT: 358 QTc: 529 Interpretive Statements Atrial fibrillation Prolonged QT interval Electronically Signed On 02-10-2025 17:01:46 PDT by Geronimo Huynh Please click the below link to view image of tracing.
--- NOTE | 2025-02-10 11:30 | ED.PDOC ---
HPI Comments This is a 74-year-old female with past medical history of permanent AFib, hypertension, COPD, asthma, HFrEF (EF 20%), referred from PCP office due to AFib with RVR. She reports shortness of bed, and chest tightness since 5 days. She also reports of nausea, lightheadedness, blurry vision, headache, and palpitation. She denies fever, cough, vomiting, or any bowel/bladder habit changes. Home meds: Albuterol, apixaban, dronedarone 400 mg b.i.d., Lasix 40 mg daily, metoprolol tartrate 25 mg, Entresto, (patient has run out of apixaban and Lasix since 3-4 days). Chief Complaint: Chest Pain Time Seen by MD: 10:53 Primary Care Provider: TIA Reviewed Notes: Nurses Notes Allergies: Coded Allergies: LEROY Inhibitors (Verified Allergy, Severe, ANAPHYLAXIS, 01/20/18) Home Meds Active Scripts Apixaban Base (ELIQUIS) 5 Mg Tab, 5 MG PO BID for 30 Days, #60 TAB 3 Refills Prov:KUSUM ALEX MD 08/14/24 Sacubitril-Valsartan (Entresto 24-26 mg) 1 Tab Tab, 1 TAB PO BID for 30 Days, #60 TAB 3 Refills Prov:KUSUM ALEX MD 08/14/24 Furosemide (Lasix) 40 Mg Tab, 40 MG PO BID for 30 Days, #60 TAB 3 Refills Prov:KUSUM ALEX MD 08/14/24 Respiratory Therapy Supplies (Full Kit Nebulizer Set) Set [facility], [facility] XX, #1 Prov:KUSUM ALEX MD 08/13/24 Reported Medications Albuterol Sulfate (Albuterol Sulfate Hfa) 108 Mcg/Act Aer, 2 PUFF IN Q6HR PRN for WHEEZING for 25 Days, #18 08/12/24 Metoprolol Tartrate (Metoprolol Tartrate) 25 Mg Tab, 1 TAB PO BID for 90 Days, #180 08/12/24 Dronedarone Hydrochloride (Multaq) 400 Mg Tab, 1 TAB PO BIDWM for 90 Days, #180 08/12/24 Pantoprazole Sodium Sesquihydr (Protonix) 40 Mg Tab, 1 TAB PO DAILY for 90 Days 08/12/24 Discontinued Reported Medications Levetiracetam (KEPPRA TABLET) 500 Mg Tb, 500 MG PO TID 02/27/18 Discontinued Scripts Methylprednisolone (Medrol Dosepak) 4 Mg Reid, 4 MG PO UD, #21 TAB UAD Prov:KUSUM ALEX MD 08/14/24 Mode of Arrival: Ambulatory Past Medical History PAST MEDICAL HISTORY: AFIB, Asthma, CHF, High Lipids, HTN, Seizures Surgical History: Denies all surgeries PRECIPITATION EQUIPMENT TENDER History: No Pertinent PRECIPITATION EQUIPMENT TENDER History Family History Family History: Reviewed,noncontributory to illness Social History Smoker: Non-Smoker Alcohol: Occasionally Drugs: Denies Drug Use Lives In: Home Constitutional: denies: chills, diaphoresis, fatigue, fever, malaise, sweats, weakness, others EENTM: denies: blurred vision, double vision, ear bleeding, ear discharge, ear drainage, ear pain, ear ringing, eye pain, eye redness, hearing loss, mouth pain, mouth swelling, nasal discharge, nose bleeding, nose congestion, nose pain, photophobia, tearing, throat pain, throat swelling, voice changes, others Respiratory: reports: orthopnea, shortness of breath; denies: cough, hemoptysis, SOB at rest, SOB with excertion, stridor, wheezing, others Cardiovascular: reports: chest pain; denies: dizzy spells, diaphoresis, Dyspnea on exertion, edema, irregular heart beat, left arm pain, lightheadedness, palpitations, PND, syncope, others Gastrointestinal: reports: abdominal pain, nausea; denies: abdomen distended, blood streaked bowels, constipated, diarrhea, dysphagia, difficulty swallowing, hematemesis, melena, poor appetite, poor fluid intake, rectal bleeding, rectal pain, vomiting, others Genitourinary: denies: abnormal vagina bleeding, burning, dyspareunia, dysuria, flank pain, frequency, hematuria, incontinence, pain, , vagina discha rge, urgency, others Neurological: denies: dizziness, fainting, headache, left sided numbness, left sided weakness, numbness, paresthesia, pre-existing deficit, right sided numbness, right sided weakness, seizure, speech problems, tingling, tremors, weakness, others Musculoskeletal: denies: back pain, gout, joint pain, joint swelling, muscle pain, muscle stiffness, neck pain, others Integumetry: denies: bruises, change in color, change in hair/nails, dryness, laceration, lesions, lumps, rash, wounds, others Allergic/Immunocompromised: denies: Difficulty Healing, Frequent Infections, Hives, Itching, others Hematologic/Lymphatic: denies: anemia, blood clots, easy bleeding, easy bruising, swollen glands, others Endocrine: denies: excessive hunger, excessive sweating, excessive thirst, excessive urination, flushing, intolerance to cold, intolerance to heat, unexplained weight gain, unexplained weight loss, others Psychiatric: denies: anxiety, bipolar disorder, depression, hopeless, panic disorder, schizophrenia, sleepless, suicidal, others Physical Exam General Appearance: No Apparent Distress, Normal HEENT: Normal ENT Inspection, Pharynx Normal, TMs Normal Neck: Full Range of Motion, Non-Tender, Normal, Normal Inspection Respiratory: Chest Non-Tender, Lungs Clear, Rales, Respiratory Distress Cardiovascular: No Edema, No JVD, No Murmur, No Gallop, Normal Peripheral Puls es, Regular Rate/Rhythm Breast Exam: Deferred Gastrointestinal: No Organomegaly, Non Tender, No Pulsatile Mass, Normal Bowel Sounds, Soft Genitalia: Deferred Pelvic: Deferred Rectal: Deferred Extremities: No calf tenderness, Normal capillary refill, Normal inspection, Normal range of motion, Non-tender, No pedal edema Musculoskeletal : Apperance: Normal Neurologic: Alert, medical data analyst II-XII nml as Tested, No Motor Deficits, Normal Affect, Normal Mood, No Sensory Deficits Cerebellar Function: Normal Reflexes: Normal Skin: Dry, Normal Color, Warm Lymphatic: No Adenopathy EKG EKG : Comments EKGs shows AFib with RVR no significant ST or T-wave changes Was a procedure done? Was a procedure done?: No CP Differential Dx Differential Diagnosis: A-fib, Atrial Dysrhythmia Differential Diagnosis: CHF Differential Diagnosis: Angina, Cholelithiasis, Costochondritis, Pneumonia X-Ray, Labs, Meds, VS Vital Signs Date Time Temp Pulse Resp B/P (MAP) Pulse Ox O2 Delivery O2 Flow Rate FiO2 02/10/25 14:01 102 167/109 02/10/25 14:00 167/109 02/10/25 14:00 138 20 167/109 (128) 95 02/10/25 12:15 126 20 94 Room Air* 0 21 02/10/25 12:15 98.2 126 20 161/116 (131) 94 98.2 02/10/25 12:14 18 96 Room Air* 0 21 02/10/25 11:20 119 02/10/25 10:46 131 02/10/25 10:31 97.9 134 20 161/116 99 97.9 Lab Test 02/10/25 11:40 02/10/25 11:30 Range/Units White Blood Count 6.6 4.4-10.8 10^3/uL Red Blood Count 5.19 4.0-5.20 10^6/uL Hemoglobin 11.9 L 12.2-16.2 g/dL Hematocrit 38.1 36.0-46.0 % Mean Corpuscular Volume 73.4 L 80.0-100.0 fL Mean Corpuscular Hemoglobin 23.0 L 28.0-32.0 pg Mean Corpuscular Hemoglobin Concent 31.3 L 32.0-36.0 g/dL Red Cell Distribution Width 21.2 H 11.8-14.3 % Platelet Count 203 140-450 10^3/uL Mean Platelet Volume 7.9 6.9-10.8 fL Neutrophils (%) (Auto) 65.5 37.0-80.0 % Lymphocytes (%) (Auto) 23.6 10.0-50.0 % Monocytes (%) (Auto) 9.5 0.0-12.0 % Eosinophils (%) (Auto) 0.5 0.0-7.0 % Basophils (%) (Auto) 0.9 0.0-2.0 % Neutrophils # (Auto) 4.3 1.6-8.6 10 ^3/uL Lymphocytes # (Auto) 1.6 0.4-5.4 10 ^3/uL Monocytes # (Auto) 0.6 0-1.3 10 ^3/uL Eosinophils # (Auto) 0 0-0.8 10 ^3/uL Basophils # (Auto) 0.1 0-0.2 10 ^3/uL Nucleated Red Blood Cells 0.2 % Sodium Level 142 136-145 mmol/L Potassium Level 3.7 3.5-5.1 mmol/L Chloride Level 103 98-107 mmol/L Carbon Dioxide Level 27 20-31 mmol/L Anion Gap 12 5-15 Blood Urea Nitrogen 16 9-23 mg/dL Creatinine 1.04 H 0.550-1.02 mg/dL Glomerular Filtration Rate Calc 56 >90 mL/min BUN/Creatinine Ratio 15.4 10.0-20.0 Serum Glucose 99 74-106 mg/dL Calcium Level 8.9 8.7-10.4 mg/dL Magnesium Level 1.6 1.6-2.6 mg/dL Total Bilirubin 2.2 H 0.2-1.0 mg/dL Aspartate Amino Transferase (AST) 25 13-40 U/L Alanine Aminotransferase (ALT) 20 7-40 U/L Alkaline Phosphatase 187 H 46-116 U/L Troponin I High Sensitivity 6 </=34 ng/L B-Type Natriuretic Peptide 1286.51 0-100 pg/mL Total Protein 7.0 5.7-8.2 g/dL Albumin 4.2 3.2-4.8 g/dL Urine Color Light-yellow Yellow Urine Clarity Clear Clear Urine pH 6.5 5.0-9.0 Urine Specific [place] 1.011 1.001-1.035 Urine Protein 2+ H Negative Urine Ketones Negative Negative Urine Blood Negative Negative /uL Urine Nitrite Negative Negative Urine Bilirubin Negative Negative Urine Urobilinogen 2 H Negative mg/dL Urine Leukocyte Esterase 1+ Negative /uL Urine RBC 1 0 - 4 /hpf Urine Microscopic WBC 9 H 0-5 /HPF Urine Squamous Epithelial Cells Few <5 /hpf Urine Bacteria Few H None Seen /hpf Urine Glucose Normal Normal mg/dL Urine Opiates Screen Neg NEGATIVE Urine Fentanyl Screen Neg NEGATIVE Urine Barbiturates Screen Neg NEGATIVE Urine Phencyclidine Screen Neg NEGATIVE Urine Amphetamines Screen Neg NEGATIVE Urine Benzodiazepines Screen Neg NEGATIVE Urine Cocaine Screen Neg NEGATIVE Urine Cannabinoids Screen Neg NEGATIVE Current Medications Medications (Trade) Dose Ordered Sig/Ziyad Route Start Time Stop Time Status Last Admin Aspirin 81 mg ONCE ONCE PO 02/10/25 11:30 02/10/25 11:34 DC 02/10/25 14:00 Atorvastatin Calcium (Lipitor) 40 mg ONCE ONCE PO 02/10/25 11:30 02/10/25 11:34 DC 02/10/25 14:00 Furosemide (Lasix Injection) 60 mg ONCE ONCE IV 02/10/25 11:30 02/10/25 11:34 DC 02/10/25 14:00 Ipratropium Desmet (Atrovent Medneb) 0.5 mg ONCE ONCE NEB 02/10/25 11:30 02/10/25 11:34 DC 02/10/25 12:14 Levalbuterol HCl (Xopenex Medneb) 1.25 mg Q6HR NEB 02/10/25 12:00 02/10/25 12:14 Metoprolol Tartrate (Lopressor Tablet) 25 mg ONCE ONCE PO 02/10/25 11:30 02/10/25 11:34 DC 02/10/25 14:01 Time of 1ST Reevaluation: 13:00 Reevaluation 1ST: Unchanged Patient Education/Counseling: Diagnosis, Treatment, Prognosis, Need For Follow Up Family Education/Counseling: Diagnosis, Treatment, Prognosis, Need For Follow Up Comments Patient came to the hospital due to shortness of breaths, and chest discomfort. Patient was referred from PCP office due to AFib with RVR. EKGs showed AFib with RVR, with no significant ST or T-wave changes. CBC, CMP Check. Patient was given IV diuretics, nebulizer, and beta-lucie. Patient was given aspirin and atorvastatin. On subsequent checkup, patient was mildly feeling better. Patient will be admitted in hospital for further management and treatment. SEPSIS Sepsis Screen Date sepsis recognized/suspect: Feb 10, 2025 Time Sepsis recognized/suspect: 103 Recent Procedure: No On Antibiotic Therapy: No Respiratory Rate >20: No Heart Rate >90: No Temp<36 C (96.8 F) or >38.3 C: No SBP <90 or MAP <65 mmHG: No New Acute Mental Status Change: No Is the patient on CPAP, BIPAP,: No Physician Orders Electrocardigram (02/10/25 14:23) Chest Xray 1 View (02/10/25 11:30) Levalbuterol Hcl (Xopenex Medneb) (02/10/25 12:00) Apixaban (Eliquis) (02/10/25 22:00) Vital Signs Date Time Temp Pulse Resp B/P (MAP) Pulse Ox O2 Delivery O2 Flow Rate FiO2 02/10/25 14:01 102 167/109 02/10/25 14:00 167/109 02/10/25 14:00 138 20 167/109 (128) 95 02/10/25 12:15 126 20 94 Room Air* 0 21 02/10/25 12:15 98.2 126 20 161/116 (131) 94 98.2 02/10/25 12:14 18 96 Room Air* 0 21 02/10/25 11:20 119 02/10/25 10:46 131 02/10/25 10:31 97.9 134 20 161/116 99 97.9 Laboratory Tests Test 02/10/25 11:40 White Blood Count 6.6 10^3/uL (4.4-10.8) Medications Medications Dose Ordered Sig/Ziyad Route Start Time Stop Time Status Last Admin Dose Admin Aspirin 81 mg ONCE ONCE PO 02/10/25 11:30 02/10/25 11:34 DC 02/10/25 14:00 Atorvastatin Calcium 40 mg ONCE ONCE PO 02/10/25 11:30 02/10/25 11:34 DC 02/10/25 14:00 Furosemide 60 mg ONCE ONCE IV 02/10/25 11:30 02/10/25 11:34 DC 02/10/25 14:00 Ipratropium Desmet 0.5 mg ONCE ONCE NEB 02/10/25 11:30 02/10/25 11:34 DC 02/10/25 12:14 Levalbuterol HCl 1.25 mg Q6HR NEB 02/10/25 12:00 02/10/25 12:14 Metoprolol Tartrate 25 mg ONCE ONCE PO 02/10/25 11:30 02/10/25 11:34 DC 02/10/25 14:01 Departure 1 Departure Time of Disposition: 13:00 Impression: Primary Impression: Acute exacerbation of chronic heart failure Additional Impression: COPD (chronic obstructive pulmonary disease) Disposition: ADMITTED INPATIENT Admit to: Tele Condition: Guarded Critical Care Note Critical Care Time?: Yes (35 min-critical care time only) Stability Stability form required: No Heart Score Heart Score: Heart Score Response (Comments) Value History Moderate Suspicious 1 EKG Repolarization Disturb 1 Age >65 2 Risk Factors >3 or Hx ASHD 2 Troponin Normal limit 0 Total 6 JANES CARBONE RESDIENT Feb 10, 2025 11:30
[2025-02-10 11:49] LABS: Hematocrit 38.1 % (36.0-46.0)
[2025-02-10 11:51] LABS: Hemoglobin 11.9 g/dL (12.2-16.2); Mean Corpuscular Hemoglobin 23.0 pg (28.0-32.0); Mean Corpuscular Volume 73.4 fL (80.0-100.0); Nucleated Red Blood Cells % 0.2 %
--- NOTE | 2025-02-10 11:58 | ECG ---
[facility] Test Date: 2025-02-10 Test Time: 11:20:58 Pat Name: ALIREZA VILLEGAS Department: Room: [address] [place] [address] Gender: F Office Professional: ER : 1950 Requested By: JANES CARBONE Order Number: [id number] Reading MD: Geronimo Huynh Measurements Intervals [place] Rate: 119 P: 0 [place]: 0 QRS: 15 QRSD: 79 T: 49 QT: 354 QTc: 499 Interpretive Statements Atrial fibrillation Ventricular premature complex Borderline prolonged QT interval Electronically Signed On 02-10-2025 17:01:54 PDT by Geronimo Huynh Please click the below link to view image of tracing.
[2025-02-10 12:04] LABS: Alanine Aminotransferase 20 U/L (7-40); Albumin 4.2 g/dL (3.2-4.8); Anion Gap 12 (5-15); BUN/Creatinine Ratio 15.4 (10.0-20.0); Blood Urea Nitrogen 16 mg/dL (9-23); Calcium 8.9 mg/dL (8.7-10.4); Carbon Dioxide 27 mmol/L (20-31); Chloride 103 mmol/L (98-107); Glucose 99 mg/dL (74-106); Magnesium 1.6 mg/dL (1.6-2.6); Potassium 3.7 mmol/L (3.5-5.1); Sodium 142 mmol/L (136-145); Total Protein 7.0 g/dL (5.7-8.2)
[2025-02-10 12:05] LABS: Alkaline Phosphatase 187 U/L (46-116); Bilirubin, Total 2.2 mg/dL (0.2-1.0)
--- NOTE | 2025-02-10 12:08 | DVH ---
EXAM: XY CHEST XRAY 1 VIEW Indication: pain; pneumonia Technique: Single frontal view of the chest was obtained Comparison: XY CHEST PORTABLE on DOS: 08/11/24, XY CHEST PORTABLE on DOS: 07/06/23, CHEST PORTABLE on D OS: 09/02/20 FINDINGS: Lines and Tubes: None Lungs: No focal consolidation. Pleura: No effusion. No pneumothorax. Cardiomediastinal contours: Cardiomegaly. Bones: No acute osseous abnormality. IMPRESSION: Cardiomegaly. No acute cardiopulmonary disease.
[2025-02-10] MEDS: LEVALBUTEROL HCL 1.25 MG/3 ML NEB NEB SCH (12:14)
[2025-02-10] MEDS: IPRATROPIUM BROM 0.5 MG/2.5ML INH SOL NEB ONE (12:14)
[2025-02-10 12:15] VITALS: PULSE 126; RESP 20; O2SAT 94
[2025-02-10] MEDS: ATORVASTATIN 20 MG TAB PO ONE (14:00)
[2025-02-10] MEDS: FUROSEMIDE 100 MG/10ML VIAL IV ONE (14:00)
[2025-02-10] MEDS: METOPROLOL TARTRATE 25 MG TAB PO ONE (14:01)
[2025-02-10 15:13] VITALS: BP 153/109; PULSE 114; RESP 18; TEMP 98.2; O2SAT 96
[2025-02-10] MEDS ORDERED: DOCUSATE SOD 100 MG CAP PO PRN (15:15)
[2025-02-10] MEDS ORDERED: ONDANSETRON HCL 4 MG/2 ML VIAL IV PRN (15:15)
[2025-02-10] MEDS ORDERED: ACETAMINOPHEN 325 MG TAB PO PRN (15:15)
[2025-02-10] MEDS ORDERED: MORPHINE SULFATE INJ 2 MG/ml SYRG IV PRN (15:15)
[2025-02-10] MEDS ORDERED: NITROGLYCERIN 0.4 MG SL TAB SL PRN (15:15)
[2025-02-10] MEDS ORDERED: ALBUTEROL SULF 2.5 MG/0.5ML(0.5%) NEB SOLN NEB PRN (15:45)
[2025-02-10 15:57] LABS: Urine Protein, UAD 2+ (Negative)
--- NOTE | 2025-02-10 16:06 | DVHHP2 ---
History of Present Illness Reason for Visit: Shortness of breath History of Present Illness Ashley Perez is a 74-year-old female with past medical history of CHF, hypertension, atrial fibrillation, COPD, and asthma, who was brought to the hospital by EMS for atrial fibrillation with RVR. Patient was seen today by her primary care provider due to shortness of breath and being out of her Lasix. She states for about 4 days she has been feeling short of breath, palpitations, dizzy, and light headedness. While at her primary care provider they did an EKG and found her to be in atrial fibrillation with RVR and sent her to the hospital. Cardiovascular: AFIB, CHF, HTN Pulmonary: Asthma, COPD Past Surgical History: Other (Right foot, emergency trach from allergic reactio n) Smoke: No ALCOHOL: rare Drugs: None Lives: with Family Domestic Violence: Neg Review of Systems Constitutional: Yes: Other (lightheaded); No: Fever, Chills, Sweats, Weakness, Malaise Eyes: No: Pain, Vision change, Conjunctivae inflammation, Eyelid inflammation, Other, Redness ENT: No: Ear pain, Ear discharge, Nose pain, Nose discharge, Nose congestion, Mouth pain, Mouth swelling, Throat pain, Throat swelling, Other Respiratory: Shortness of breath, SOB with excertion; No: Cough, Dry, Wheezing, Hemoptysis, Pleuritic Pain, Sputum, Wheezing, Other Cardiovascular: Palpitations; No: Chest Pain, Orthopnea, Paroxysmal Noc. Dyspnea, Edema, Lt Headedness, Other Gastrointestinal: No: Nausea, Vomiting, Abdominal Pain, Diarrhea, Constipation, Melena, Hematochezia, Other Genitourinary: No Dysuria, No Frequency, No Incontinence, No Hematuria, No Retention, No Other Musculoskeletal: No: other, neck pain, shoulder pain, arm pain, back pain, hand pain, leg pain, foot pain Skin: No: Rash, Lesions, Jaundice, Bruising, Other Neurological: Other (dizzy); No: Weakness, Numbness, Incoordination, Change in speech, Confusion, Seizures Allergies: Coded Allergies: LEROY Inhibitors (Verified Allergy, Severe, ANAPHYLAXIS, 01/20/18) Medications Current Medications Medications Dose Ordered Sig/Ziyad Route Start Time Stop Time Status Last Admin Dose Admin Levalbuterol HCl 1.25 mg Q6HR NEB 02/10/25 12:00 02/10/25 12:14 1.25 MG Apixaban 5 mg BID PO 02/10/25 22:00 Acetaminophen/ Hydrocodone Bitart 1 tab Q4HP PRN PO 02/10/25 15:15 UNV Ondansetron HCl 4 mg Q4HP PRN IV 02/10/25 15:15 UNV Docusate Sodium 100 mg BIDPRN PRN PO 02/10/25 15:15 UNV Acetaminophen 650 mg Q6HP PRN PO 02/10/25 15:15 UNV Nitroglycerin 0.4 mg Q5MINP PRN SL 02/10/25 15:15 UNV Morphine Sulfate 2 mg Q30M PRN IV 02/10/25 15:15 UNV Metoprolol Tartrate 25 mg BID PO 02/10/25 22:00 UNV Pantoprazole Sodium 40 mg DAILY PO 02/11/25 10:00 UNV Sacubitril/ Valsartan 1 tab BID PO 02/10/25 22:00 UNV Patient Own Medication 1 tab BIDWM PO 02/10/25 18:00 UNV Exam Vital Signs Vital Signs Date Time Temp Pulse Resp B/P (MAP) Pulse Ox O2 Delivery O2 Flow Rate FiO2 02/10/25 14:01 102 167/109 02/10/25 12:14 18 96 Room Air* 0 21 02/10/25 10:31 97.9 97.9 General Appearance: Alert, Oriented X3, Cooperative, moderate distress HEENT: Atraumatic, PERRLA Respiratory: Clear to auscultation, Normal air movement Cardiovascular: Other (Atrail fibrillation) Abdominal: Normal bowel sounds, Soft, No tenderness, No hepatospenomegaly Extremities: No clubbing, No cyanosis, Other (Bilateral LE edema) Skin: No rashes, No breakdown, No significant lesion Neuro: Normal gait, Normal speech, Strength at 5/5 X4 ext, Normal tone Psych/Mental Status: Mental status NL, Mood NL Labs/Xrays Labs Test 02/10/25 11:40 Range/Units White Blood Count 6.6 4.4-10.8 10^3/uL Red Blood Count 5.19 4.0-5.20 10^6/uL Hemoglobin 11.9 L 12.2-16.2 g/dL Hematocrit 38.1 36.0-46.0 % Mean Corpuscular Volume 73.4 L 80.0-100.0 fL Mean Corpuscular Hemoglobin 23.0 L 28.0-32.0 pg Mean Corpuscular Hemoglobin Concent 31.3 L 32.0-36.0 g/dL Red Cell Distribution Width 21.2 H 11.8-14.3 % Platelet Count 203 140-450 10^3/uL Mean Platelet Volume 7.9 6.9-10.8 fL Neutrophils (%) (Auto) 65.5 37.0-80.0 % Lymphocytes (%) (Auto) 23.6 10.0-50.0 % Monocytes (%) (Auto) 9.5 0.0-12.0 % Eosinophils (%) (Auto) 0.5 0.0-7.0 % Basophils (%) (Auto) 0.9 0.0-2.0 % Neutrophils # (Auto) 4.3 1.6-8.6 10 ^3/uL Lymphocytes # (Auto) 1.6 0.4-5.4 10 ^3/uL Monocytes # (Auto) 0.6 0-1.3 10 ^3/uL Eosinophils # (Auto) 0 0-0.8 10 ^3/uL Basophils # (Auto) 0.1 0-0.2 10 ^3/uL Nucleated Red Blood Cells 0.2 % Sodium Level 142 136-145 mmol/L Potassium Level 3.7 3.5-5.1 mmol/L Chloride Level 103 98-107 mmol/L Carbon Dioxide Level 27 20-31 mmol/L Anion Gap 12 5-15 Blood Urea Nitrogen 16 9-23 mg/dL Creatinine 1.04 H 0.550-1.02 mg/dL Glomerular Filtration Rate Calc 56 >90 mL/min BUN/Creatinine Ratio 15.4 10.0-20.0 Serum Glucose 99 74-106 mg/dL Calcium Level 8.9 8.7-10.4 mg/dL Magnesium Level 1.6 1.6-2.6 mg/dL Total Bilirubin 2.2 H 0.2-1.0 mg/dL Aspartate Amino Transferase (AST) 25 13-40 U/L Alanine Aminotransferase (ALT) 20 7-40 U/L Alkaline Phosphatase 187 H 46-116 U/L Troponin I High Sensitivity 6 </=34 ng/L B-Type Natriuretic Peptide 1286.51 0-100 pg/mL Total Protein 7.0 5.7-8.2 g/dL Albumin 4.2 3.2-4.8 g/dL EXAM: XY CHEST XRAY 1 VIEW FINDINGS: Lines and Tubes: None Lungs: No focal consolidation. Pleura: No effusion. No pneumothorax. Cardiomediastinal contours: Cardiomegaly. Bones: No acute osseous abnormality. IMPRESSION: Cardiomegaly. No acute cardiopulmonary disease. SEPSIS Sepsis Screen Date sepsis recognized/suspect: Feb 10, 2025 Time Sepsis recognized/suspect: 1034 Recent Procedure: No On Antibiotic Therapy: No Respiratory Rate >20: No Heart Rate >90: No Temp<36 C (96.8 F) or >38.3 C: No SBP <90 or MAP <65 mmHG: No New Acute Mental Status Change: No Is the patient on CPAP, BIPAP,: No Physician Orders Electrocardigram (02/10/25 14:23) Drug Screen (02/10/25 11:30) Urinalysis (02/10/25 11:30) Chest Xray 1 View (02/10/25 11:30) Levalbuterol Hcl (Xopenex Medneb) (02/10/25 12:00) Apixaban (Eliquis) (02/10/25 22:00) Admit (02/10/25 15:13) Code Status (02/10/25 15:13) Hydrocodone-Acet 5/325mg Tab ([place] 5/32 (02/10/25 15:15) Ondansetron Hcl (Zofran) (02/10/25 15:15) Docusate Sodium Capsule (Colace Capsule) (02/10/25 15:15) Complete Blood Count (02/11/25 04:00) Comprehensive Metabolic Panel (02/11/25 04:00) Cardiac Diet-2gna,Lofat,Lochol (02/10/25 Dinner) Condition: Serious (02/10/25 15:13) Acetaminophen Tablet (Tylenol Tablet) (02/10/25 15:15) Nitroglycerin Sublingual (Ntrostat Subli (02/10/25 15:15) Morphine Sulfate Injection (02/10/25 15:15) Stat Ekg For Chest Pain (02/10/25 15:13) Notify Md Of Changes From Base (02/10/25 15:13) Cloth Bleaching Supervisor For 24 Hours (02/10/25 15:13) Emergency Dysrhythmia Protocol (02/10/25 15:13) Rhythm Strips Once Every Shift (02/10/25 15:13) Oxygen By Nasal Cannula (02/10/25 15:13) Metoprolol Tartrate Tablet (Lopressor Ta (02/10/25 22:00) Pantoprazole Tablet (Protonix Tablet) (02/11/25 10:00) Sacubitril-Valsartan (Entresto 24-26 Mg (02/10/25 22:00) (Nf) Dronedarone Hydrochloride (Multaq) (02/10/25 18:00) Vital Signs Date Time Temp Pulse Resp B/P (MAP) Pulse Ox O2 Delivery O2 Flow Rate FiO2 02/10/25 14:01 102 167/109 02/10/25 14:00 167/109 02/10/25 12:14 18 96 Room Air* 0 21 02/10/25 11:20 119 02/10/25 10:46 131 02/10/25 10:31 97.9 134 20 161/116 99 97.9 Laboratory Tests Test 02/10/25 11:40 White Blood Count 6.6 10^3/uL (4.4-10.8) Medications Medications Dose Ordered Sig/Ziyad Route Start Time Stop Time Status Last Admin Dose Admin Aspirin 81 mg ONCE ONCE PO 02/10/25 11:30 02/10/25 11:34 DC 02/10/25 14:00 81 MG Atorvastatin Calcium 40 mg ONCE ONCE PO 02/10/25 11:30 02/10/25 11:34 DC 02/10/25 14:00 40 MG Furosemide 60 mg ONCE ONCE IV 02/10/25 11:30 02/10/25 11:34 DC 02/10/25 14:00 60 MG Ipratropium [place] 0.5 mg ONCE ONCE NEB 02/10/25 11:30 02/10/25 11:34 DC 02/10/25 12:14 0.5 MG Levalbuterol HCl 1.25 mg Q6HR NEB 02/10/25 12:00 02/10/25 12:14 1.25 MG Metoprolol Tartrate 25 mg ONCE ONCE PO 02/10/25 11:30 02/10/25 11:34 DC 02/10/25 14:01 25 MG Assessment/Plan Assessment/Plan Assessment: Atrial fibrillation with RVR, Elevated BNP, CHF, Hyperlipidemia, COPD, Plan: Admit to Tele, Consider cardiology consult, patient follows with Dr. Johnson, IV Lasix, Breathing treatments as needed, PRN antihypertensives, Home medications reconciled, Plan discussed with: Patient My Orders Orders - CORINA LARRY REWIND OPERATOR Procedure Category Date Status Time Admit ADMIT 02/10/25 Transmitted 15:13 Code Status CODE 02/10/25 Transmitted 15:13 Hydrocodone-Acet PHA 02/10/25 Logged 5/325mg Tab ([place] 15:15 Ondansetron Hcl PHA 02/10/25 Logged (Zofran) 15:15 Docusate Sodium [facility] 02/10/25 Logged Capsule (Colace 15:15 Complete Blood Count LAB 02/11/25 Verified 04:00 Comprehensive LAB 02/11/25 Verified Metabolic Panel 04:00 Cardiac DIET 02/10/25 Transmitted Diet-2gna,Lofat,Lochol Dinner Condition: Serious [facility] 02/10/25 In Process 15:13 Acetaminophen Tablet [facility] 02/10/25 Logged (Tylenol Tablet) 15:15 Nitroglycerin [facility] 02/10/25 Logged Sublingual (Ntrostat 15:15 Morphine Sulfate [facility] 02/10/25 Logged Injection 15:15 Stat Ekg For Chest [facility] 02/10/25 In Process Pain 15:13 Notify Md Of Changes [facility] 02/10/25 In Process From Base 15:13 Cloth Bleaching Supervisor For [facility] 02/10/25 In Process 24 Hours 15:13 Emergency Dysrhythmia [facility] 02/10/25 In Process Protocol 15:13 Rhythm Strips Once [facility] 02/10/25 In Process Every Shift 15:13 Oxygen By Nasal RT 02/10/25 Transmitted Cannula 15:13 Metoprolol Tartrate [facility] 02/10/25 Logged Tablet (Lopressor Ta 22:00 Pantoprazole Tablet [facility] 02/11/25 Logged (Protonix Tablet) 10:00 Sacubitril-Valsartan PHA 02/10/25 Logged (Entresto 24-26 Mg 22:00 (Nf) Dronedarone PHA 02/10/25 Logged Hydrochloride (Multaq) 18:00 Date of Service: Feb 10, 2025 Billing Provider: CORINA LARRY Common Visit Codes: [id number] INP/OBS CARE (HIGH) CORINA LARRY Feb 10, 2025 16:06
[2025-02-10 16:08] LABS: Amphetamine Screen, Urine Neg (NEGATIVE); Barbiturate Scree,Urine Neg (NEGATIVE); Benzodiazephine Screen, Urine Neg (NEGATIVE); Cannabinoid Screen, Urine Neg (NEGATIVE); Cocaine Screen, Urine Neg (NEGATIVE); Opiate Scree,Urine Neg (NEGATIVE); Phencyclidine Screen, Urine Neg (NEGATIVE)
[2025-02-10] MEDS: HYDROcodone-ACET 5/325MG TAB PO PRN (16:29)
[2025-02-10 18:00] VITALS: PULSE 106; RESP 18; O2SAT 94
[2025-02-10] MEDS: IPRATROPIUM BROM 0.5 MG/2.5ML INH SOL NEB PRN (18:00)
[2025-02-10 18:10] VITALS: PULSE 113; RESP 18; O2SAT 100
[2025-02-10] MEDS: hydrALAZINE HCL 20 MG/ML VL IV PRN (18:40)
[2025-02-10 19:30] VITALS: O2SAT 94
[2025-02-10] MEDS: METOPROLOL TARTRATE 25 MG TAB PO SCH (21:53)
[2025-02-10] MEDS: APIXABAN 5 MG TAB PO SCH (21:53)
[2025-02-10] MEDS: SACUBITRIL-VALSARTAN 24mg/26mg TAB PO SCH (22:24)
[2025-02-11] VITALS (13 sets, daily range): BP systolic 115–130; BP diastolic 77–90; PULSE 70–114; RESP 14–20; TEMP 97.6–97.8; O2SAT 87–100
[2025-02-11 07:55] LABS: Hematocrit 37.9 % (36.0-46.0); Hemoglobin 12.1 g/dL (12.2-16.2); Mean Corpuscular Hemoglobin 23.8 pg (28.0-32.0); Mean Corpuscular Volume 74.7 fL (80.0-100.0); Nucleated Red Blood Cells % 0.2 %
[2025-02-11 08:07] LABS: Alanine Aminotransferase 22 U/L (7-40); Albumin 4.0 g/dL (3.2-4.8); Anion Gap 11 (5-15); BUN/Creatinine Ratio 15.8 (10.0-20.0); Blood Urea Nitrogen 16 mg/dL (9-23); Calcium 8.7 mg/dL (8.7-10.4); Carbon Dioxide 27 mmol/L (20-31); Chloride 102 mmol/L (98-107); Glucose 104 mg/dL (74-106); Potassium 3.9 mmol/L (3.5-5.1); Sodium 140 mmol/L (136-145); Total Protein 6.8 g/dL (5.7-8.2)
[2025-02-11 08:10] LABS: Alkaline Phosphatase 172 U/L (46-116); Bilirubin, Total 1.4 mg/dL (0.2-1.0)
[2025-02-11] MEDS: PANTOPRAZOLE 40 MG TAB PO SCH (09:15)
[2025-02-11] MEDS: METOPROLOL TARTRATE 25 MG TAB PO SCH (10:00)
--- NOTE | 2025-02-11 12:35 | DVHPN2 ---
Subjective Complains of chest pain and palpitations Came with AFib with RVR Better now heart rate around 100 Changes from previous H/P or p: Changes Eyes: No Pain, No Vision change, No Conjunctivae inflammation, No Eyelid inflammation, No Other, No Redness ENT: No Ear pain, No Ear discharge, No Nose pain, No Nose discharge, No Nose congestion, No Mouth pain, No Mouth swelling, No Throat pain, No Throat swelling, No Other Cardiovascular: No Chest Pain; Palpitations; No Orthopnea, No Paroxysmal Noc. Dyspnea, No Edema, No Lt Headedness, No Other Respiratory: No Cough, No Dry; Shortness of breath, SOB with excertion; No Wheezing, No Hemoptysis, No Pleuritic Pain, No Sputum, No Other Gastrointestinal: No Nausea, No Vomiting, No Abdominal Pain, No Diarrhea, No Constipation, No Melena, No Hematochezia, No Other Genitourinary: No Dysuria, No Frequency, No Incontinence, No Hematuria, No Retention, No Other Musculoskeletal: No other, No neck pain, No shoulder pain, No arm pain, No back pain, No hand pain, No leg pain, No foot pain Skin: No Rash, No Lesions, No Jaundice, No Bruising, No Other Objective Vitals Vital Signs Date Time Temp Pulse Resp B/P (MAP) Pulse Ox O2 Delivery O2 Flow Rate FiO2 02/11/25 11:49 70 18 87 02/11/25 11:39 Nasal Cannula* 2 28 02/11/25 11:00 142/82 02/10/25 19:36 97.8 97.8 General Appearance: Alert, Oriented X3, Cooperative Cardiovascular: Regular rate, Normal S1 Abdomen: Normal bowel sounds, Soft Extremities: No edema Medications Current Medications Medications Dose Ordered Sig/Ziyad Route Start Time Stop Time Status Last Admin Dose Admin Levalbuterol HCl 1.25 mg Q6HR NEB 02/10/25 12:00 02/11/25 11:39 1.25 MG Apixaban 5 mg BID PO 02/10/25 22:00 02/11/25 09:15 5 MG Acetaminophen/ Hydrocodone Bitart 1 tab Q4HP PRN PO 02/10/25 15:15 02/11/25 09:16 1 TAB Ondansetron HCl 4 mg Q4HP PRN IV 02/10/25 15:15 Docusate Sodium 100 mg BIDPRN PRN PO 02/10/25 15:15 Acetaminophen 650 mg Q6HP PRN PO 02/10/25 15:15 Nitroglycerin 0.4 mg Q5MINP PRN SL 02/10/25 15:15 Morphine Sulfate 2 mg Q30M PRN IV 02/10/25 15:15 Pantoprazole Sodium 40 mg DAILY PO 02/11/25 10:00 02/11/25 09:15 40 MG Sacubitril/ Valsartan 1 tab BID PO 02/10/25 22:00 02/11/25 09:14 1 TAB Patient Own Medication 1 tab BIDWM PO 02/10/25 18:00 02/11/25 08:00 1 TAB Ipratropium [place] 0.5 mg Q6HPRN PRN NEB 02/10/25 15:45 02/11/25 11:39 0.5 MG Albuterol 2.5 mg Q6HPRN PRN NEB 02/10/25 15:45 Hydralazine HCl 10 mg Q6HP PRN IV 02/10/25 16:45 02/10/25 18:40 10 MG Metoprolol Tartrate 50 mg BID PO 02/11/25 10:00 02/11/25 10:00 50 MG Laboratory Results Laboratory Tests 02/11/25 07:10 Chemistry Test 02/11/25 07:10 Albumin 4.0 g/dL (3.2-4.8) Calcium Level 8.7 mg/dL (8.7-10.4) Total Protein 6.8 g/dL (5.7-8.2) LFT Test 02/11/25 07:10 Alanine Aminotransferase (ALT) 22 U/L (7-40) Alkaline Phosphatase 172 U/L (46-116) H Aspartate Amino Transferase (AST) 33 U/L (13-40) Total Bilirubin 1.4 mg/dL (0.2-1.0) H Urinalysis Test 02/10/25 11:30 Urine Color Light-yellow (Yellow) Urine Clarity Clear (Clear) Urine pH 6.5 (5.0-9.0) Urine Specific [place] 1.011 (1.001-1.035) Urine Protein 2+ (Negative) H Urine Ketones Negative (Negative) Urine Blood Negative /uL (Negative) Urine Nitrite Negative (Negative) Urine Bilirubin Negative (Negative) Urine Urobilinogen 2 mg/dL (Negative) H Urine Leukocyte Esterase 1+ /uL (Negative) Urine RBC 1 /hpf (0 - 4) Urine Microscopic WBC 9 /HPF (0-5) H Urine Squamous Epithelial Cells Few /hpf (<5) Urine Bacteria Few /hpf (None Seen) H Urine Glucose Normal mg/dL (Normal) Assessment/Plan Assessment/Plan Atrial fibrillation with rapid ventricular response CHF prior ejection fraction is 20% Acute on chronic systolic heart failure COPD Hypertension Plan Increase metoprolol to 50 mg twice a day Continue Eliquis Lasix Entresto Multaq Plan discussed with: Patient My Orders Orders - KUSUM ALEX MD Procedure Category Date Status Time Metoprolol Tartrate PHA 02/11/25 In Process Tablet (Lopressor Ta 10:00 Date of Service: Feb 11, 2025 Billing Provider: KUSUM ALEX MD Common Visit Codes: NOT BILLABLE KUSUM ALEX MD Feb 11, 2025 12:35
[2025-02-11] MEDS: FUROSEMIDE 40 MG/4 ML VIAL IV ONE (16:56)
[2025-02-12] VITALS (9 sets, daily range): BP systolic 109–156; BP diastolic 70–99; PULSE 66–91; RESP 14–18; TEMP 97.5–97.9; O2SAT 90–100
[2025-02-12 07:22] LABS: Alanine Aminotransferase 16 U/L (7-40); Albumin 3.9 g/dL (3.2-4.8); Anion Gap 12 (5-15); BUN/Creatinine Ratio 13.7 (10.0-20.0); Blood Urea Nitrogen 13 mg/dL (9-23); Carbon Dioxide 29 mmol/L (20-31); Chloride 101 mmol/L (98-107); Glucose 99 mg/dL (74-106); Magnesium 1.6 mg/dL (1.6-2.6); Sodium 142 mmol/L (136-145); Total Protein 6.8 g/dL (5.7-8.2)
[2025-02-12 07:24] LABS: Alkaline Phosphatase 161 U/L (46-116); Bilirubin, Total 1.2 mg/dL (0.2-1.0); Calcium 8.5 mg/dL (8.7-10.4); Potassium 3.0 mmol/L (3.5-5.1)
[2025-02-12] MEDS: FUROSEMIDE 40 MG/4 ML VIAL IV SCH (09:02)
[2025-02-12] MEDS: POTASSIUM CHL 20 Meq TABLET PO ONE (10:28)
[2025-02-12] MEDS ORDERED: IBUP1TAB5 PO (11:23)
[2025-02-12] MEDS ORDERED: FURO1TAB31 PO (11:23)
[2025-02-12] MEDS ORDERED: DRON400T PO (11:23)
[2025-02-12] MEDS ORDERED: SACU1TAB PO (11:23)
[2025-02-12] MEDS ORDERED: APIX5TAB PO (11:23)
[2025-02-12] MEDS ORDERED: METO-158 PO (11:23)
--- NOTE | 2025-02-12 11:26 | DVHDS2 ---
Discharge Summary Date of Admission Feb 10, 2025 at 15:13 Date of Discharge: Feb 12, 2025 Labs/Diagnostic Data: Laboratory Results Test 02/12/25 06:26 02/11/25 07:10 02/10/25 11:40 02/10/25 11:30 Sodium Level 142 mmol/L (136-145) Potassium Level 3.0 mmol/L (3.5-5.1) Chloride Level 101 mmol/L (98-107) Carbon Dioxide Level 29 mmol/L (20-31) Anion Gap 12 (5-15) Blood Urea Nitrogen 13 mg/dL (9-23) Creatinine 0.95 mg/dL (0.550-1.02) Glomerular Filtration Rate Calc 62 mL/min (>90) BUN/Creatinine Ratio 13.7 (10.0-20.0) Serum Glucose 99 mg/dL (74-106) Calcium Level 8.5 mg/dL (8.7-10.4) Magnesium Level 1.6 mg/dL (1.6-2.6) Total Bilirubin 1.2 mg/dL (0.2-1.0) Aspartate Amino Transferase (AST) 19 U/L (13-40) Alanine Aminotransferase (ALT) 16 U/L (7-40) Alkaline Phosphatase 161 U/L (46-116) Total Protein 6.8 g/dL (5.7-8.2) Albumin 3.9 g/dL (3.2-4.8) White Blood Count 7.5 10^3/uL (4.4-10.8) Red Blood Count 5.08 10^6/uL (4.0-5.20) Hemoglobin 12.1 g/dL (12.2-16.2) Hematocrit 37.9 % (36.0-46.0) Mean Corpuscular Volume 74.7 fL (80.0-100.0) Mean Corpuscular Hemoglobin 23.8 pg (28.0-32.0) Mean Corpuscular Hemoglobin Concent 31.9 g/dL (32.0-36.0) Red Cell Distribution Width 21.5 % (11.8-14.3) Platelet Count 196 10^3/uL (140-450) Mean Platelet Volume 7.5 fL (6.9-10.8) Neutrophils (%) (Auto) 67.1 % (37.0-80.0) Lymphocytes (%) (Auto) 22.4 % (10.0-50.0) Monocytes (%) (Auto) 8.6 % (0.0-12.0) Eosinophils (%) (Auto) 1.4 % (0.0-7.0) Basophils (%) (Auto) 0.5 % (0.0-2.0) Neutrophils # (Auto) 5.0 10 ^3/uL (1.6-8.6) Lymphocytes # (Auto) 1.7 10 ^3/uL (0.4-5.4) Monocytes # (Auto) 0.6 10 ^3/uL (0-1.3) Eosinophils # (Auto) 0.1 10 ^3/uL (0-0.8) Basophils # (Auto) 0 10 ^3/uL (0-0.2) Nucleated Red Blood Cells 0.2 % Troponin I High Sensitivity 6 ng/L (</=34) B-Type Natriuretic Peptide 1286.51 pg/mL (0-100) Urine Color Light-yellow (Yellow) Urine Clarity Clear (Clear) Urine pH 6.5 (5.0-9.0) Urine Specific [place] 1.011 (1.001-1.035) Urine Protein 2+ (Negative) Urine Ketones Negative (Negative) Urine Blood Negative /uL (Negative) Urine Nitrite Negative (Negative) Urine Bilirubin Negative (Negative) Urine Urobilinogen 2 mg/dL (Negative) Urine Leukocyte Esterase 1+ /uL (Negative) Urine RBC 1 /hpf (0 - 4) Urine Microscopic WBC 9 /HPF (0-5) Urine Squamous Epithelial Cells Few /hpf (<5) Urine Bacteria Few /hpf (None Seen) Urine Glucose Normal mg/dL (Normal) Urine Opiates Screen Neg (NEGATIVE) Urine Fentanyl Screen Neg (NEGATIVE) Urine Barbiturates Screen Neg (NEGATIVE) Urine Phencyclidine Screen Neg (NEGATIVE) Urine Amphetamines Screen Neg (NEGATIVE) Urine Benzodiazepines Screen Neg (NEGATIVE) Urine Cocaine Screen Neg (NEGATIVE) Urine Cannabinoids Screen Neg (NEGATIVE) Other Laboratory Tests 02/12/25 06:26 02/11/25 07:10 Brief Hx & Hospital Course: Final diagnoses: Atrial fibrillation with rapid ventricular response CHF prior ejection fraction is 20% Acute on chronic systolic heart failure COPD Hypertension 74-year-old female was admitted for atrial fibrillation with rapid ventricular response She was given increased doses of metoprolol She was continued on her home medications Overnight her heart rate has improved and sees asymptomatic now except for complaints of pain in her hand joints Give ibuprofen as needed She was advised to follow up with the primary care physician to get a rheumatology consult to rule out rheumatoid arthritis Increase metoprolol to 50 mg twice a day Continue Multaq 400 mg twice a day Continue Eliquis 5 mg twice a day Ibuprofen 600 mg q.6 hours p.r.n. Follow up with her primary care physician as soon as possible Resume other home medication Condition at Discharge: Stable Final Diagnosis/Problems List Atrial fibrillation with rapid ventricular response CHF prior ejection fraction is 20% Acute on chronic systolic heart failure COPD Hypertension Discharge Disposition: Home SNF Discharge Will this Physician continue t: No Discharge Instruct/Medications Diet: Cardiac 2g Na,low cholest Activity: Light activity Follow Up/Referral: PCP NEAL Medications: Increase metoprolol to 50 mg twice a day Resume Multaq 400 mg twice a day Ibuprofen 600 mg q.6 hours p.r.n. Resume other home medication Scheduled Apixaban [place] (Eliquis), 5 MG PO BID Apixaban [place] (Eliquis), 5 MG PO BID Dronedarone Hydrochloride (Multaq), 1 TAB PO BIDWM, (Reported) Dronedarone Hydrochloride (Multaq), 1 TAB PO BID Furosemide (Lasix), 40 MG PO BID Furosemide (Lasix), 40 MG PO DAILY Metoprolol Tartrate (Metoprolol Tartrate), 1 TAB PO BID, (Reported) Metoprolol Tartrate (Metoprolol Tartrate), 50 MG PO BID Pantoprazole Sodium Sesquihydr (Protonix), 1 TAB PO DAILY, (Reported) Sacubitril-Valsartan (Entresto 24-26 mg), 1 TAB PO BID Sacubitril-Valsartan (Entresto 24-26 mg), 1 TAB PO BID Scheduled PRN Albuterol Sulfate (Albuterol Sulfate Hfa), 2 PUFF IN Q6HR PRN for WHEEZING, (Reported) Ibuprofen Micronized (Ibuprofen), 600 MG PO Q6HP PRN Discontinued Medications Levetiracetam (Keppra Tablet), 500 MG PO TID, (Reported) Methylprednisolone (Medrol Dosepak), 4 MG PO UD Durable Medical Equipment Respiratory Therapy Supplies (Full Kit Nebulizer Set), [facility], (DME) Discharge Statement: "Patient was advised to return to the ER or call 911 if any headaches, dizziness, shortness of breath, chest pain, abdominal pain, bleeding, fevers, or worsening of medical condition. Patient was counseled about treatment plan, medications, possible side effects, patientverbalized understanding. All questions were answered to the best of my ability. This discharge took greater then 30 minutes in planning, reviewing documentation, counseling the patient, and discussing with other team members." ASSESSMENT ASSESSMENT Assessment Atrial fibrillation with rapid ventricular response CHF prior ejection fraction is 20% Acute on chronic systolic heart failure COPD Hypertension Date of Service: Feb 12, 2025 Billing Provider: KUSUM ALEX MD Common Visit Codes: NOT BILLABLE KUSUM ALEX MD Feb 12, 2025 11:26
[2025-02-12] MEDS ORDERED: IBUPROFEN 600 MG TAB PO PRN (11:30)
[2025-02-12] MEDS ORDERED: DRONEDARONE HCL 400 MG TAB PO SCH (18:00)
== END 2025-02-12 15:57 | disposition home or self-care (01) | DRG 308 ==
LOC: ER 10:28 → OVERFLOW 15:13 → TELE-EAST 02-11 14:05
PROVIDERS: ADMIT Internal Medicine Geriatric Medicine; ATTEND Internal Medicine Geriatric Medicine
DX: I48.91 Unspecified atrial fibrillation (principal); I50.23 Acute on chronic systolic (congestive) heart failure; I11.0 Hypertensive heart disease with heart failure; J44.89 Other specified chronic obstructive pulmonary disease; E78.5 Hyperlipidemia, unspecified; Z79.01 Long term (current) use of anticoagulants; Z88.8 Allergy status to other drugs, medicaments and biological substances; Z79.899 Other long term (current) drug therapy
CPT/HCPCS: 36415; 71045; 80053; 80307; 81001; 83735; 83880; 84484; 85025; 93005; 94640; 96374; 99291; G0378

== ENCOUNTER 2025-05-07 10:54 | Inpatient (IN) | payer OTHER, MEDICAID ==
[2025-05-07] VITALS (7 sets, daily range): BP systolic 133–167; BP diastolic 97–119; PULSE 83–132; RESP 18–26; TEMP 97–97.9; O2SAT 90–99
[~2025-05-07] VITALS: Ht 170.2 cm; Wt 79.4 kg
[~2025-05-07 10:54] MED LIST changes: +IBUP1TAB5 PO; -KEP500T PO; -METH4PAK PO; +METO-158 PO
--- NOTE | 2025-05-07 11:12 | ED.PDOC ---
HPI Comments Extremely poor historian HPI: A 74 year-old female presents to the ED via EMS with a chief complaint of general weakness for X2 days. Pt reports mechanical fall X2 days ago, with injury to L wrist. Patient denies any head trauma or chest pain at this time. Patient additionally reports symptoms of diarrhea for X1 day, with a difficulty ambulating. Patient states she is currently out of medications, one of which is Lasix. Patient has no further complaints at this time. Initial Vitals BP: 98 f HR: 140 Afib with RVR RR:26 O2: 99% RA Temp: 98 F Past Medical History: Afib, HTN, Hyperlipidemia, CHF, Epilepsy Past Surgical History: Denies Social History: Occasional ETOH intoxication Medications: Eliquis, Metoprolol, Lasix Allergies: Lisinopril HPI: Poor Historian. REVIEW OF SYSTEMS: CONSTITUTIONAL: Denies acute: fever, diaphoresis, chills, HEAD: Denies acute: headache, photophobia Eyes: Denies acute: Double vision, vision loss, eye pain, eye discharge. EARS: Denies acute: tinnitus, hearing loss, ear discharge, ear pain, THROAT: Denies acute: sore throat, swelling, difficulty swallowing , pain with swallowing, change in voice. NECK: Denies acute: neck pain, neck swelling, stiff neck. HEART: Denies acute : chest pain, palpitations, LUNGS: Denies acute: SOB, wheezing, cough, hemoptysis ABDOMEN: Denies acute: abdominal pain, Nausea, Vomiting, diarrhea, melena , hematemesis, hematochezia SKIN: Denies acute: rash, redness, lesions, itchiness. EXTREMITIES: Denies acute: calf pain, numbness, tingling, weakness, Denies acute: Low back pain. Neuro: Denies acute: focal neurological deficit, motor or sensory focal neurological deficit, tremors, seizure like activity, confusion, dizziness, change in mental status, loss of bowel or bladder function, cauda equina like symptoms. : Denies acute: dysuria, hematuria, flank pain, increase in urinary frequency. PSYCH: Denies acute: hallucination, suicidal ideation, homicidal ideation. FEMALE: Denies acute: abnormal vaginal bleeding, foul odor, unusual discharge. PHYSICAL EXAM: General: -----mild---acute distress, awake and alert. Head: normocephalic, atraumatic. No raccoon's eyes, no moore sign. Neck: supple, trachea is midline, no swelling. Throat: Normal phonation. Eyes:, no erythema, no purulent discharge, no proptosis, no icterus. Heart: Irregular rate and rhythm consistent with atrial fibrillation with RVR no significant murmur appreciated. Lungs: no apparent respiratory distress, Able to speak in full sentences. No wheezing, no rhonchi, no crackles. No stridors Abdomen: non tender to palpation, non distended, soft, no guarding, no rebound, + bowel sounds. Neuro: Awake, Alert, oriented to name, self, situation, follows commands GCS=15. Speech is normal. Skin: no petechia, no purpura, no cyanosis, non-pale, not jaundice. Lower extremities: --trace bilateral - Pitting edema no deformity, no focal swelling, no calf TTP. Makes eye contact. moves all four extremities. Face: no apparent facial droop. ED COURSE: DISCLAIMER: This medical document was created using an electronic medical record system with voice recognition software and computerized dictation system. Although this document has been carefully reviewed, there might still be some phonetic and typographical errors. Occasional wrong-word or "sound-alike" substitutions may have occurred due to the inherent limitations of voice recognition software. These areas are purely typographical due to imperfections of the software programs and do not reflect any compromise in the patient's medical care. Please read the chart carefully and recognize, using context, where these substitutions have occurred. Time Seen by : 11:00 Primary Care Provider: TIA Reviewed Notes: Medications, Allergies Allergies: Coded Allergies: LEROY Inhibitors (Verified Allergy, Severe, ANAPHYLAXIS, 01/20/18) Home Meds Active Scripts Sacubitril-Valsartan (Entresto 24-26 mg) 1 Tab Tab, 1 TAB PO BID for 30 Days, #60 TAB 3 Refills Prov:KUSUM ALEX MD 02/12/25 Furosemide (Lasix) 40 Mg Tab, 40 MG PO DAILY for 30 Days, #30 TAB 3 Refills Prov:KUSUM ALEX MD 02/12/25 Apixaban Base (ELIQUIS) 5 Mg Tab, 5 MG PO BID for 30 Days, #60 TAB 3 Refills Prov:KUSUM ALEX MD 02/12/25 Dronedarone Hydrochloride (Multaq) 400 Mg Tab, 1 TAB PO BID, #60 TAB 5 Refills Prov:KUSUM ALEX MD 02/12/25 Metoprolol Tartrate (Metoprolol Tartrate) 50 Mg Tab, 50 MG PO BID for 30 Days, #60 TAB 3 Refills Prov:KUSUM ALEX MD 02/12/25 Ibuprofen Micronized (Ibuprofen) 600 Mg Tab, 600 MG PO Q6HP PRN, #20 TAB Prov:KUSUM ALEX MD 02/12/25 Apixaban Base (ELIQUIS) 5 Mg Tab, 5 MG PO BID for 30 Days, #60 TAB 3 Refills Prov:KUSUM ALEX MD 08/14/24 Sacubitril-Valsartan (Entresto 24-26 mg) 1 Tab Tab, 1 TAB PO BID for 30 Days, #60 TAB 3 Refills Prov:KUSUM ALEX MD 08/14/24 Furosemide (Lasix) 40 Mg Tab, 40 MG PO BID for 30 Days, #60 TAB 3 Refills Prov:KUSUM ALEX MD 08/14/24 Respiratory Therapy Supplies (Full Kit Nebulizer Set) Set [facility], [facility] XX, #1 Prov:KUSUM ALEX MD 08/13/24 Reported Medications Albuterol Sulfate (Albuterol Sulfate Hfa) 108 Mcg/Act Aer, 2 PUFF IN Q6HR PRN for WHEEZING for 25 Days, #18 08/12/24 Metoprolol Tartrate (Metoprolol Tartrate) 25 Mg Tab, 1 TAB PO BID for 90 Days, #180 08/12/24 Dronedarone Hydrochloride (Multaq) 400 Mg Tab, 1 TAB PO BIDWM for 90 Days, #180 08/12/24 Pantoprazole Sodium Sesquihydr (Protonix) 40 Mg Tab, 1 TAB PO DAILY for 90 Days 08/12/24 Information Source: Patient, Emergency Med Personnel Mode of Arrival: EMS Severity: Moderate Timing: Days Duration: Since onset Onset: At Rest, With Light Exertion Associated Signs and Symptoms: Other (weakness ) Past Medical History PAST MEDICAL HISTORY: AFIB, Asthma, CHF, High Lipids, HTN, Seizures Surgical History: Denies all surgeries USER SUPPORT ANALYST SUPERVISOR History: No Pertinent USER SUPPORT ANALYST SUPERVISOR History Family History Family History: Reviewed,noncontributory to illness Social History Smoker: Non-Smoker Alcohol: Occasionally Drugs: Denies Drug Use Lives In: Home EKG EKG : Pulse Rate (adult): 125 Comments AFib with RVR Was a procedure done? Was a procedure done?: No CP Differential Dx Differential Diagnosis: A-fib, A-Flutter, Angina, Anxiety / Panic Attack Differential Diagnosis: HTN Essential Differential Diagnosis: Angina, Chest Wall Pain, Gastritis, Pneumonia X-Ray, Labs, Meds, VS Vital Signs Date Time Temp Pulse Resp B/P (MAP) Pulse Ox O2 Delivery O2 Flow Rate FiO2 05/07/25 12:45 107 18 90 Room Air* 0 21 05/07/25 12:45 97.8 107 18 133/97 (109) 90 97.8 05/07/25 12:41 110 133/97 05/07/25 11:14 98.6 111 18 156/107 96 98.6 05/07/25 11:12 125 05/07/25 10:58 125 Lab Test 05/07/25 11:25 Range/Units White Blood Count 7.4 4.4-10.8 10^3/uL Red Blood Count 5.14 4.0-5.20 10^6/uL Hemoglobin 11.7 L 12.2-16.2 g/dL Hematocrit 37.0 36.0-46.0 % Mean Corpuscular Volume 71.9 L 80.0-100.0 fL Mean Corpuscular Hemoglobin 22.7 L 28.0-32.0 pg Mean Corpuscular Hemoglobin Concent 31.5 L 32.0-36.0 g/dL Red Cell Distribution Width 18.5 H 11.8-14.3 % Platelet Count 265 140-450 10^3/uL Mean Platelet Volume 8.1 6.9-10.8 fL Neutrophils (%) (Auto) 74.9 37.0-80.0 % Lymphocytes (%) (Auto) 14.5 10.0-50.0 % Monocytes (%) (Auto) 9.0 0.0-12.0 % Eosinophils (%) (Auto) 1.1 0.0-7.0 % Basophils (%) (Auto) 0.5 0.0-2.0 % Neutrophils # (Auto) 5.6 1.6-8.6 10 ^3/uL Lymphocytes # (Auto) 1.1 0.4-5.4 10 ^3/uL Monocytes # (Auto) 0.7 0-1.3 10 ^3/uL Eosinophils # (Auto) 0.1 0-0.8 10 ^3/uL Basophils # (Auto) 0 0-0.2 10 ^3/uL Nucleated Red Blood Cells 0.0 % Sodium Level 147 H 136-145 mmol/L Potassium Level 3.0 L 3.5-5.1 mmol/L Chloride Level 109 H 98-107 mmol/L Carbon Dioxide Level 27 20-31 mmol/L Anion Gap 11 5-15 Blood Urea Nitrogen 10 9-23 mg/dL Creatinine 0.74 0.550-1.02 mg/dL Glomerular Filtration Rate Calc 84 >90 mL/min BUN/Creatinine Ratio 13.5 10.0-20.0 Serum Glucose 89 74-106 mg/dL Lactic Acid Level 2.1 *H 0.4-2.0 mmol/L Calcium Level 9.3 8.7-10.4 mg/dL Phosphorus Level 2.9 2.4-5.1 mg/dL Magnesium Level 1.8 1.6-2.6 mg/dL Total Bilirubin 0.9 0.2-1.0 mg/dL Aspartate Amino Transferase (AST) 12 L 13-40 U/L Alanine Aminotransferase (ALT) < 9 7-40 U/L Alkaline Phosphatase 168 H 46-116 U/L Troponin I High Sensitivity 6 </=34 ng/L B-Type Natriuretic Peptide 1168.56 0-100 pg/mL Total Protein 7.4 5.7-8.2 g/dL Albumin 4.1 3.2-4.8 g/dL Thyroid Stimulating Hormone (TSH) 1.82 0.55-4.78 uIU/mL [address] [address] Ph: [phone] DIAGNOSTIC IMAGING Diagnostic Imaging Report : [id number] Signed PATIENT: ALIREZA VILLEGAS ACCT: [id number] UNIT: [id number] : 1950 LOC: ER ROOM / BED: / AGE / SEX: 74 / F ADM STATUS: REG ER SERVICE ORDERING PHYSICIAN: RADHA TOUSSAINT DO PROCEDURE(s): CXRP - CHEST PORTABLE REASON: weak, afib ORDER NUMBER(s): [id number], ACCESSION NUMBER(s): [id number] INDICATION: weak, afib TECHNIQUE: Frontal view of the chest. COMPARISON: XY CHEST XRAY 1 VIEW on DOS: 02/10/25, XY CHEST PORTABLE on DOS: 08/11/24, XY CHEST PORTABLE on DOS: 07/06/23, CHEST PORTABLE on DOS: 09/02/20 FINDINGS: CARDIOMEGALY. There is no evidence of pleural disease. The lungs are clear. The bony structures of the chest are intact without fracture. IMPRESSION: 1. CARDIOMEGALY WITH CHF [place] [address] Ph: [phone] DIAGNOSTIC IMAGING Diagnostic Imaging Report : [id number] Signed PATIENT: ALIREZA VILLEGAS ACCT: [id number] UNIT: [id number] : 1950 LOC: ER ROOM / BED: / AGE / SEX: 74 / F ADM STATUS: REG ER SERVICE 04 ORDERING PHYSICIAN: RADHA TOUSSAINT DO PROCEDURE(s): LWRI - L WRIST 3+ VIEW XRAY REASON: fall ORDER NUMBER(s): [id number], ACCESSION NUMBER(s): [id number] CLINICAL INDICATION: fall TECHNIQUE: 3 radiographic views of the left wrist were obtained. COMPARISON: None FINDINGS/IMPRESSION: Arthritic changes in the of the carpal ulnar carpal radial joint spaces on involving the metacarpal carpal joint of the thumb. Small calcification of the dorsum of the wrist may represent a small avulsion fracture of the triquetrum. There are no prior studies for comparison distinguish acute versus chronic changes. [address] [address] Ph: [phone] DIAGNOSTIC IMAGING Diagnostic Imaging Report : [id number] Signed PATIENT: ALIREZA VILLEGAS ACCT: [id number] UNIT: [id number] : 1950 LOC: ER ROOM / BED: / AGE / SEX: 74 / F ADM STATUS: REG ER SERVICE 1105 ORDERING PHYSICIAN: RADHA TOUSSAINT DO PROCEDURE(s): CXRP - CHEST PORTABLE REASON: weak, afib ORDER NUMBER(s): [id number], ACCESSION NUMBER(s): [id number] INDICATION: weak, afib TECHNIQUE: Frontal view of the chest. COMPARISON: XY CHEST XRAY 1 VIEW on DOS: 02/10/25, XY CHEST PORTABLE on DOS: 08/11/24, XY CHEST PORTABLE on DOS: 07/06/23, CHEST PORTABLE on DOS: 09/02/20 FINDINGS: CARDIOMEGALY. There is no evidence of pleural disease. The lungs are clear. The bony structures of the chest are intact without fracture. IMPRESSION: 1. CARDIOMEGALY WITH CHF ATED BY: ROBERT SANTIAGO MD DICTATED DATE/TIME: 05/07/25 1203 SIGNED BY: ROBERT SANTIAGO MD SIGNED DATE/TIME: 05/07/25 120 CC: Time of 1ST Reevaluation: 11:43 Reevaluation 1ST: Unchanged Patient Education/Counseling: Diagnosis, Treatment Family Education/Counseling: No Family Present Comments MDM: patient presented with the above HPI.---generalized weakness---workup was initiated. patient was found with the above mentioned diagnosis. the following medications were ordered: please refer to order lists of meds and tests obtained by myself Dr. Toussaint. Patient ED course and VS have been stabilized. Patient has been reassessed in the ED and remained in a stable condition. Pertinent incidental findings were discussed with the patient and/or family. Patient/family voices understanding and is agreeable with plan. Patient has been observed in the ED adequate length of time to insure improvem ent/stability. Escalation of care considered: Consideration of escalation to observation or admission Patient was ADMITTED to the medicine team for further evaluation and treatment of their presentation. All the reports of any imaging studies that were ordered by myself were reviewed by myself. Departure 1 Departure Time of Disposition: 12:13 Impression: Primary Impression: Atrial fibrillation with RVR Additional Impressions: Generalized weakness CHF (congestive heart failure) Hypokalemia Disposition: ADMITTED INPATIENT Admit to: Tele Condition: Guarded Discharged With: Self Critical Care Note Critical Care Time?: Yes (30 min-critical care time only) Critical care comment: Due to a high probability of clinically significant, life threatening deterioration, the patient required my highest level of preparedness to intervene emergently and I personally spent this critical care time directly and personally managing the patient. This critical care time included obtaining a history; examining the patient; pulse oximetry; ordering and review of studies; arranging urgent treatment with development of a management plan; evaluation of patient's response to treatment; frequent reassessment; and, discussions with other providers. This critical care time was performed to assess and manage the high probability of imminent, life-threatening deterioration that could result in multi-organ failure. It was exclusive of separately billable procedures and treating other patients and teaching time. Please see my other sections and the rest of the note for further information on patient assessment and treatment. Heart Score Heart Score: Heart Score Response (Comments) Value History Slightly Suspicious [address]-Deviation 2 Age >65 2 Risk Factors 1 or 2 risk factors 1 Troponin Normal limit 0 Total 5 I personally scribed for RADHA TOUSSAINT DO ([email or web address]) on 05/07/25 at 11:12. Electronically submitted by Denita Weber ([email or web address]). I personally scribed for RADHA TOUSSAINT DO ([email or web address]) on 05/07/25 at 11:17. Electronically submitted by Denita Weber ([employer]). I personally scribed for RADHA TOUSSAINT DO ([email or web address]) on 05/07/25 at 12:17. Electronically submitted by Denita Weber ([employer]). I personally scribed for RADHA TOUSSAINT DO ([email or web address]) on 05/07/25 at 19:46. Electronically submitted by Nya Sandhu ([facility]ATION[facility]). RADHA TOUSSAINT DO May 07, 2025 11:12
[2025-05-07] MEDS: SODIUM CHLORIDE 0.9% 500 ML IV ONE (11:15)
--- NOTE | 2025-05-07 12:05 | DVH ---
INDICATION: weak, afib TECHNIQUE: Frontal view of the chest. COMPARISON: XY CHEST XRAY 1 VIEW on DOS: 02/10/25, XY CHEST PORTABLE on DOS: 08/11/24, XY CHEST PORTABLE on DOS: 07/06/23, CHEST PORTABLE on DOS: 09/02/20 FINDINGS: CARDIOMEGALY. There is no evidence of pleural disease. The lungs are clear. The bony structures of the chest are intact without fracture. IMPRESSION: 1. CARDIOMEGALY WITH CHF
--- NOTE | 2025-05-07 12:05 | DVH ---
CLINICAL INDICATION: fall TECHNIQUE: 3 radiographic views of the left wrist were obtained. COMPARISON: None FINDINGS/IMPRESSION: Arthritic changes in the of the carpal ulnar carpal radial joint spaces on involving the metacarpal carpal joint of the thumb. Small calcification of the dorsum of the wrist may represent a small avulsion fracture of the triquetrum. There are no prior studies for comparison distinguish acute versus chronic changes.
[2025-05-07 12:11] LABS: Nucleated Red Blood Cells % 0.0 %
[2025-05-07 12:12] LABS: Hematocrit 37.0 % (36.0-46.0); Hemoglobin 11.7 g/dL (12.2-16.2); Mean Corpuscular Hemoglobin 22.7 pg (28.0-32.0); Mean Corpuscular Volume 71.9 fL (80.0-100.0)
[2025-05-07 12:27] LABS: Albumin 4.1 g/dL (3.2-4.8); Anion Gap 11 (5-15); BUN/Creatinine Ratio 13.5 (10.0-20.0); Blood Urea Nitrogen 10 mg/dL (9-23); Calcium 9.3 mg/dL (8.7-10.4); Carbon Dioxide 27 mmol/L (20-31); Glucose 89 mg/dL (74-106); Magnesium 1.8 mg/dL (1.6-2.6); Total Protein 7.4 g/dL (5.7-8.2)
[2025-05-07 12:28] LABS: Bilirubin, Total 0.9 mg/dL (0.2-1.0)
[2025-05-07 12:31] LABS: Alanine Aminotransferase < 9 U/L (7-40); Alkaline Phosphatase 168 U/L (46-116); Chloride 109 mmol/L (98-107); Potassium 3.0 mmol/L (3.5-5.1); Sodium 147 mmol/L (136-145)
[2025-05-07 12:33] LABS: Lactic Acid w/Reflex 2.1 mmol/L (0.4-2.0)
[2025-05-07] MEDS: METOPROLOL TARTRATE 1MG/1ML-5ML VIAL IV ONE (12:41)
[2025-05-07] MEDS: POTASSIUM CHL 20 Meq TABLET PO ONE (13:15)
[2025-05-07] MEDS ORDERED: NITROGLYCERIN 0.4 MG SL TAB SL PRN (13:15)
[2025-05-07] MEDS ORDERED: ALBUTEROL SULF 2.5 MG/0.5ML(0.5%) NEB SOLN NEB PRN (13:15)
[2025-05-07] MEDS ORDERED: IPRATROPIUM BROM 0.5 MG/2.5ML INH SOL NEB PRN (13:15)
--- NOTE | 2025-05-07 13:16 | DVHHP2 ---
History of Present Illness Reason for Visit: sob and left foot and ankle pain History of Present Illness 74-year-old female with past medical history significant for atrial fibrillation on Eliquis, hypertension, hyperlipidemia, chronic heart failure, epilepsy, asthma, and prior alcohol intoxication presents after a mechanical fall four days prior to admission. Patient reports she fell and hit her left ankle and foot, resulting in severe pain and inability to bear weight, leaving her bedbound for four days. Due to persistent pain and inability to ambulate, she called 911. She also reports generalized weakness for the past two days. EMS found the patient in atrial fibrillation with rapid ventricular response, heart rate in the 120s, and she was given IV metoprolol. She denies chest pain but reports shortness of breath. She also complains of left leg swelling and ankle pain. She denies head trauma or loss of consciousness during the fall and states she landed on her left arm. She reports adherence to Eliquis and Lasix as prescribed. ED evaluation: CBC unremarkable. Sodium 147, potassium 3.0, chloride 109, lactate 2.1, alkaline phosphatase 68, troponin negative. Chest X-ray shows cardiomegaly and pulmonary congestion, consistent with heart failure exacerbation. Given atrial fibrillation with RVR, volume overload, electrolyte abnormalities, and inability to ambulate after fall, patient will be admitted for further management. Past Medical History See HPI above Past Surgical History See HPI above Family History Reviewed, non-contributory to the management of this case. Past Social History The patient lives at home, denies smoking, alcohol or illicit drugs abuse. Review of Systems Constitutional: No: Fever, Chills, Sweats, Weakness, Malaise, Other Eyes: No: Pain, Vision change, Conjunctivae inflammation, Eyelid inflammation, Other, Redness ENT: No: Ear pain, Ear discharge, Nose pain, Nose discharge, Nose congestion, Mouth pain, Mouth swelling, Throat pain, Throat swelling, Other Respiratory: Shortness of breath; No: Cough, Dry, SOB with excertion, Wheezing, Hemoptysis, Pleuritic Pain, Sputum, Wheezing, Other Cardiovascular: Palpitations, Edema; No: Chest Pain, Orthopnea, Paroxysmal Noc. Dyspnea, Lt Headedness, Other Gastrointestinal: No: Nausea, Vomiting, Abdominal Pain, Diarrhea, Constipation, Melena, Hematochezia, Other Genitourinary: No Dysuria, No Frequency, No Incontinence, No Hematuria, No Retention, No Other Musculoskeletal: leg pain, foot pain; No: other, neck pain, shoulder pain, arm pain, back pain, hand pain Skin: No: Rash, Lesions, Jaundice, Bruising, Other Neurological: Weakness; No: Numbness, Incoordination, Change in speech, Confusion, Seizures, Other Allergies: Coded Allergies: LEROY Inhibitors (Verified Allergy, Severe, ANAPHYLAXIS, 01/20/18) Exam Vital Signs Vital Signs Date Time Temp Pulse Resp B/P (MAP) Pulse Ox O2 Delivery O2 Flow Rate FiO2 05/07/25 12:45 107 18 90 Room Air* 0 21 05/07/25 12:45 97.8 133/97 (109) 97.8 General Appearance: Alert, Oriented X3, Cooperative, No acute distress HEENT: Atraumatic, PERRLA, EOMI, Mucous membr. moist/pink Respiratory: Other (Diminished lung sounds throughout) Cardiovascular: Other (Irregularly irregular heart rate) Abdominal: Normal bowel sounds, Soft, No tenderness, No hepatospenomegaly, No masses Extremities: No clubbing, No cyanosis, Normal pulses, No tenderness/swelling, Other (left ankle edema left foot swelling no deformity no open wound) Skin: No rashes, No breakdown, No significant lesion Neuro: Other (Neuro nonfocal) Psych/Mental Status: Mental status NL, Mood NL Labs/Xrays Chest x-ray shows pulmonary edema and cardiomegaly I reviewed labs, imaging CT scan abdomen pelvis, EKG and all diagnostic studies on this patient from ED records and the medical chart Pending x-ray of the wrist Order additional x-rays and ultrasound follow up results Labs Test 05/07/25 11:25 Range/Units White Blood Count 7.4 4.4-10.8 10^3/uL Red Blood Count 5.14 4.0-5.20 10^6/uL Hemoglobin 11.7 L 12.2-16.2 g/dL Hematocrit 37.0 36.0-46.0 % Mean Corpuscular Volume 71.9 L 80.0-100.0 fL Mean Corpuscular Hemoglobin 22.7 L 28.0-32.0 pg Mean Corpuscular Hemoglobin Concent 31.5 L 32.0-36.0 g/dL Red Cell Distribution Width 18.5 H 11.8-14.3 % Platelet Count 265 140-450 10^3/uL Mean Platelet Volume 8.1 6.9-10.8 fL Neutrophils (%) (Auto) 74.9 37.0-80.0 % Lymphocytes (%) (Auto) 14.5 10.0-50.0 % Monocytes (%) (Auto) 9.0 0.0-12.0 % Eosinophils (%) (Auto) 1.1 0.0-7.0 % Basophils (%) (Auto) 0.5 0.0-2.0 % Neutrophils # (Auto) 5.6 1.6-8.6 10 ^3/uL Lymphocytes # (Auto) 1.1 0.4-5.4 10 ^3/uL Monocytes # (Auto) 0.7 0-1.3 10 ^3/uL Eosinophils # (Auto) 0.1 0-0.8 10 ^3/uL Basophils # (Auto) 0 0-0.2 10 ^3/uL Nucleated Red Blood Cells 0.0 % Sodium Level 147 H 136-145 mmol/L Potassium Level 3.0 L 3.5-5.1 mmol/L Chloride Level 109 H 98-107 mmol/L Carbon Dioxide Level 27 20-31 mmol/L Anion Gap 11 5-15 Blood Urea Nitrogen 10 9-23 mg/dL Creatinine 0.74 0.550-1.02 mg/dL Glomerular Filtration Rate Calc 84 >90 mL/min BUN/Creatinine Ratio 13.5 10.0-20.0 Serum Glucose 89 74-106 mg/dL Lactic Acid Level 2.1 *H 0.4-2.0 mmol/L Calcium Level 9.3 8.7-10.4 mg/dL Magnesium Level 1.8 1.6-2.6 mg/dL Total Bilirubin 0.9 0.2-1.0 mg/dL Aspartate Amino Transferase (AST) 12 L 13-40 U/L Alanine Aminotransferase (ALT) < 9 7-40 U/L Alkaline Phosphatase 168 H 46-116 U/L Troponin I High Sensitivity 6 </=34 ng/L B-Type Natriuretic Peptide 1168.56 0-100 pg/mL Total Protein 7.4 5.7-8.2 g/dL Albumin 4.1 3.2-4.8 g/dL SEPSIS Sepsis Screen Date sepsis recognized/suspect: May 07, 2025 Time Sepsis recognized/suspect: 1119 Recent Procedure: No On Antibiotic Therapy: No Respiratory Rate >20: No Heart Rate >90: No Temp<36 C (96.8 F) or >38.3 C: No SBP <90 or MAP <65 mmHG: No New Acute Mental Status Change: No Is the patient on CPAP, BIPAP,: No Physician Orders Manager Planning (05/07/25 ) Urinalysis (05/07/25 11:05) Chest Portable (05/07/25 11:05) Electrocardigram (05/07/25 11:05) Troponin-I Hs (05/07/25 12:05) Troponin-I Hs (05/07/25 14:05) L Wrist 3+ View Xray (05/07/25 11:05) Apixaban (Eliquis) (05/07/25 22:00) Metoprolol Tartrate Tablet (Lopressor Ta (05/07/25 22:00) Pantoprazole Tablet (Protonix Tablet) (05/08/25 10:00) Sacubitril-Valsartan (Entresto 24-26 Mg (05/07/25 22:00) Furosemide Injection (Lasix Injection) (05/07/25 18:00) Albuterol Medneb (Ventolin Medneb) (05/07/25 13:15) Ipratropium Medneb (Atrovent Medneb) (05/07/25 13:15) Cont Med Neb Intial Tx (05/07/25 13:04) Potassium Er Tablet (Klor-Con Tablet) (05/07/25 13:15) Magnesium (05/07/25 13:04) Phosphorus (05/07/25 13:04) Admit (05/07/25 13:04) Advance Directive (05/07/25 13:04) Vital Signs .PER UNIT PROTOCOL (05/07/25 13:04) Obtain Daily Weight 22 (05/07/25 13:04) Atorvastatin (Lipitor) (05/07/25 22:00) Lipid Panel (05/08/25 04:00) Comprehensive Metabolic Panel (05/08/25 04:00) Complete Blood Count (05/08/25 04:00) Echo 2d Mode Cardiac Dop (05/07/25 13:04) Copy Of Previous Echo Report T (05/07/25 13:04) Oxygen By Nasal Cannula (05/07/25 13:04) Early Ambulation (05/07/25 13:04) Sequential Compression Device (05/07/25 13:04) Cardiac Diet-2gna,Lofat,Lochol (05/07/25 Lunch) Ambulate Every 4hours Q4H (05/07/25 13:04) Cardiac Rehabilitation - Outpa (05/07/25 ) Subjective Activity Tolerance BID (05/07/25 13:04) Strict I & O QSHIFT (05/07/25 13:04) Teach: Heart Failure (05/07/25 13:04) Thyroid Stimulating Hormone (05/07/25 13:04) Urinalysis (05/07/25 13:04) Magnesium (05/07/25 13:04) * Cardiology Consult (05/07/25 13:04) * Gi Technician Consult (05/07/25 13:04) Cardiac Rehabilitation: (05/07/25 13:04) Spironolactone 25mg Po Daily (05/08/25 10:00) Nitroglycerin Sublingual (Ntrostat Subli (05/07/25 13:15) Stat Ekg For Chest Pain (05/07/25 13:04) Notify Of Changes From Base (05/07/25 13:04) Restaurant Bartender For 24 Hours (05/07/25 13:04) Emergency Dysrhythmia Protocol (05/07/25 13:04) Rhythm Strips Once Every Shift (05/07/25 13:04) Oxygen By Nasal Cannula (05/07/25 13:04) B-Type Natriuretic Peptide (05/07/25 13:04) Vital Signs Date Time Temp Pulse Resp B/P (MAP) Pulse Ox O2 Delivery O2 Flow Rate FiO2 05/07/25 12:45 107 18 90 Room Air* 0 21 05/07/25 12:45 97.8 107 18 133/97 (109) 90 97.8 05/07/25 12:41 110 133/97 05/07/25 11:14 98.6 111 18 156/107 96 98.6 05/07/25 11:12 125 05/07/25 10:58 125 Laboratory Tests Test 05/07/25 11:25 Lactic Acid Level 2.1 mmol/L (0.4-2.0) *H White Blood Count 7.4 10^3/uL (4.4-10.8) Medications Medications Dose Ordered Sig/Ziyad Route Start Time Stop Time Status Last Admin Dose Admin Metoprolol Tartrate 5 mg ONCE ONCE IV 05/07/25 11:15 05/07/25 11:16 DC 05/07/25 12:41 5 MG Assessment/Plan Assessment/Plan 74-year-old female admitted for acute on chronic diastolic heart failure exacerbation with atrial fibrillation with RVR, associated electrolyte abnormalities, and left ankle/leg pain after recent fall with inability to bear weight, requiring cardiac management, imaging, and inpatient monitoring. Acute on chronic diastolic heart failure exacerbation CXR with pulmonary congestion Continue IV diuresis with Lasix Strict I&O, daily weights Monitor renal function and electrolytes ordered Echocardiogram ordered acute Atrial fibrillation with RVR Improved after IV metoprolol Continue rate control Continue Eliquis for anticoagulation Telemetry monitoring Cardiology consult acute Left ankle and leg pain with inability to bear weight after fall acute fall after being caught in blankets Obtain X-ray of left ankle and foot Assess for fracture vs soft tissue injury Pain control ordered morphine prn pain PT/OT evaluation once stable acute Left lower extremity swelling Likely related to trauma and immobility ordered venous Doppler if concern for DVT despite anticoagulation cont home dose of eliquis acute Hypokalemia (K 3.0) Potassium repletion Monitor BMP ordered mag and phos fu results Mild hypernatremia (Na 147) likely from overdilution in heart failure Monitor sodium cont diuresis acute Mild lactic acidosis Likely due to hypoperfusion/CHF Lactate 2.1 Trend lactate chronic problems Asthma Continue home inhalers/Monitor respiratory status Epilepsy Continue antiepileptic regimen Seizure precautions Hypertension Monitor BP Continue home regimen as tolerated Hyperlipidemia Continue statin Atrial fibrillation on anticoagulation Chronic heart failure Hypertension Hyperlipidemia History of alcohol intoxication FEN / PPx Fluids: Fluid restriction as indicated for CHF 1500 ml daily Electrolytes: Replete potassium, monitor BMP Nutrition: Cardiac diet DVT Prophylaxis: On therapeutic Eliquis GI Prophylaxis: protonix Disposition Admit to telemetry for management of atrial fibrillation with RVR and acute on chronic heart failure exacerbation. Continue diuresis, rate control, electrolyte correction, and cardiac monitoring. Obtain echocardiogram and cardiology consultation. Evaluate left ankle/leg injury with imaging and initiate PT/OT once medically stable. Plan discussed with: Patient My Orders Orders - IHRAL LOPES DNP Procedure Category Date Status Time Apixaban (Eliquis) PHA 05/07/25 Verified 22:00 Metoprolol Tartrate PHA 05/07/25 Verified Tablet (Lopressor Ta 22:00 Pantoprazole Tablet PHA 05/08/25 Verified (Protonix Tablet) 10:00 Sacubitril-Valsartan PHA 05/07/25 Verified (Entresto 24-26 Mg 22:00 Furosemide Injection PHA 05/07/25 Verified (Lasix Injection) 18:00 Albuterol Medneb PHA 05/07/25 Verified (Ventolin Medneb) 13:15 Ipratropium Medneb PHA 05/07/25 Verified (Atrovent Medneb) 13:15 Cont Med Neb Intial Tx RT 05/07/25 Verified 13:04 Potassium Er Tablet PHA 05/07/25 Verified (Klor-Con Tablet) 13:15 Magnesium LAB 05/07/25 Verified 13:04 Phosphorus LAB 05/07/25 Verified 13:04 Admit ADMIT 05/07/25 Verified 13:04 Advance Directive SIMÓN 05/07/25 Verified 13:04 Vital Signs SIMÓN 05/07/25 Verified 13:04 Obtain Daily Weight SIMÓN 05/07/25 Verified 13:04 Atorvastatin (Lipitor) PHA 05/07/25 Verified 22:00 Lipid Panel LAB 05/08/25 Verified 04:00 Comprehensive LAB 05/08/25 Verified Metabolic Panel 04:00 Complete Blood Count LAB 05/08/25 Verified 04:00 Echo 2d Mode Cardiac US 05/07/25 Verified DOP 13:04 Copy Of Previous Echo SIMÓN 05/07/25 Verified Report T 13:04 Oxygen By Nasal RT 05/07/25 Verified Cannula 13:04 Early Ambulation SIMÓN 05/07/25 Verified 13:04 Sequential SIMÓN 05/07/25 Verified Compression Device 13:04 Cardiac DIET 05/07/25 Verified Diet-2gna,Lofat,Lochol Lunch Ambulate Every 4hours SIMÓN 05/07/25 Verified 13:04 Cardiac SIMÓN 05/07/25 Verified Rehabilitation - Outpa Subjective Activity SIMÓN 05/07/25 Verified Tolerance 13:04 Strict I & O SIMÓN 05/07/25 Verified 13:04 Teach: Heart Failure SIMÓN 05/07/25 Verified 13:04 Thyroid Stimulating LAB 05/07/25 Verified Hormone 13:04 Urinalysis LAB 05/07/25 Verified 13:04 Magnesium LAB 05/07/25 Verified 13:04 * Cardiology Consult CONS 05/07/25 Verified 13:04 * Gi Technician CONS 05/07/25 Verified Consult 13:04 Cardiac ORDERS 05/07/25 Verified Rehabilitation: 13:04 Spironolactone 25mg PHA 05/08/25 Verified Po Daily 10:00 Nitroglycerin PHA 05/07/25 Verified Sublingual (Ntrostat 13:15 Stat Ekg For Chest [facility] 05/07/25 Verified Pain 13:04 Notify Md Of Changes [facility] 05/07/25 Verified From Base 13:04 Restaurant Bartender For [facility] 05/07/25 Verified 24 Hours 13:04 Emergency Dysrhythmia [facility] 05/07/25 Verified Protocol 13:04 Rhythm Strips Once [facility] 05/07/25 Verified Every Shift 13:04 Oxygen By Nasal RT 05/07/25 Verified Cannula 13:04 B-Type Natriuretic LAB 05/07/25 Verified Peptide 13:04 Date of Service: May 07, 2025 Billing Provider: HIRAL LOPES DNP Common Visit Codes: [id number] INP/OBS CARE (HIGH) HIRAL LOPES DNP May 07, 2025 13:16
[2025-05-07 13:40] LABS: Magnesium 1.8 mg/dL (1.6-2.6)
--- NOTE | 2025-05-07 13:49 | DVH ---
LEFT lower extremity venous duplex CLINICAL HISTORY: eval for dvt left leg swelling COMPARISON: None TECHNIQUE: Duplex Doppler evaluation of the deep venous systems of both lower extremities from the common femoral veins to the popliteal veins including color Doppler and spectral/pulsed waveform analysis was performed. FINDINGS: LEFT SIDE: The common femoral vein demonstrates appropriate compressibility and waveform variability. There is compressibility/patency of the great saphenous vein at the proximal thigh. The femoral vein demonstrates appropriate compressibility and waveform variability. The deep femoral vein demonstrates appropriate compressibility and waveform variability. The popliteal vein demonstrates appropriate compressibility and waveform variability. There is normal compressibility at the tibioperoneal trunk. IMPRESSION: 1. No left femoropopliteal venous thrombosis.
--- NOTE | 2025-05-07 16:16 | DVH ---
EXAM: XY L TIB FIB XRAY, XY L ANKLE 2 VIEW XRAY, XY L FOOT 3 VIEW XRAY REASON FOR EXAM: eval for fx TECHNIQUE: AP and lateral views of the left tibia and fibula are submitted for review. AP, lateral, and oblique views of the left foot and left ankle are submitted for review. COMPARISON: None FINDINGS: There is mild demineralization of the bones there is pes planus. The ankle mortise is maintained. There is hallux valgus. There is severe narrowing of the 1st metatarsophalangeal joint with bunion changes. No acute fracture or dislocation is identified. There are vascular calcifications. IMPRESSION: No acute fracture or dislocation is identified. Osteopenia. Hallux valgus with severe osteoarthritis at the 1st MTP joint and bunion changes.
[2025-05-07] MEDS: FUROSEMIDE 40 MG/4 ML VIAL IV SCH (18:00)
[2025-05-07] MEDS ORDERED: MORPHINE SULFATE INJ 2 MG/ml SYRG IV PRN (18:15)
[2025-05-07 18:23] LABS: Albumin 3.9 g/dL (3.2-4.8); Anion Gap 11 (5-15); BUN/Creatinine Ratio 11.8 (10.0-20.0); Calcium 9.2 mg/dL (8.7-10.4); Carbon Dioxide 27 mmol/L (20-31); Glucose 83 mg/dL (74-106); Total Protein 7.1 g/dL (5.7-8.2)
[2025-05-07 18:24] LABS: Alanine Aminotransferase < 9 U/L (7-40); Alkaline Phosphatase 160 U/L (46-116); Bilirubin, Total 0.9 mg/dL (0.2-1.0); Blood Urea Nitrogen 8 mg/dL (9-23); Chloride 108 mmol/L (98-107); Potassium 3.1 mmol/L (3.5-5.1); Sodium 146 mmol/L (136-145)
[2025-05-07] MEDS: MORPHINE SULFATE 4 MG/ML SYR/VIAL IV PRN (18:51)
[2025-05-07] MEDS: METOPROLOL TARTRATE 50 MG TAB PO SCH (20:43)
[2025-05-07] MEDS: ATORVASTATIN 20 MG TAB PO SCH (21:01)
[2025-05-07] MEDS: APIXABAN 5 MG TAB PO SCH (21:01)
[2025-05-07] MEDS: SACUBITRIL-VALSARTAN 24mg/26mg TAB PO SCH (21:02)
--- NOTE | 2025-05-07 21:30 | DVHSR ---
APPROVED REPORT EXAM: Two-dimensional and M-mode echocardiogram with Doppler and color Doppler. Blood Pressure: 133/97 mmHg INDICATION eval for cardiac eval RISK FACTORS Height: 5'7, Weight: 187 DIMENSIONS LVDd 4.3 (3.8-5.7cm) LA (2D) 4.8 (1.9-4.0cm) Aortic Root 2.8 (2.0-3.7cm) LVDs 3.9 (2.5-4.0cm) LA (MM) (1.9-4.0cm) Aortic Cusp Exc 1.7 (1.5-2.0cm) EF (%) 23.0 (55-70%) Rt. Atrium 4.2 (1.9-4.0cm) Asc. Aorta 2.9 cm IVSd 1.2 (0.7-1.1cm) RV (D) 5.4 (1.8-2.4cm) PWd 1.6 (0.7-1.1cm) Mitral Valve Mitral Mitral Stenosis E wave 1.15m/s MV Mean GR. mmHg A wave m/s MV Peak GR. 154mmHg E/A ratio 0.0 2D MVA cm2 Aortic Valve Aortic Valve Aortic Stenosis V1 0.84m/s AO Mean GR. mmHg V2 1.02m/s AO Peak GR. 4mmHg LVOT Diameter 1.8 (1.8-2.4cm) Doppler WILEY 2.09cm2 Pulmonic Valve V2 1.06m/s Tricuspid Valve TR Velocity 3.24m/s RVSP 60mmHg Conclusion DILATED ALL CARDIAC CHAMBERS ALL CARDIAC CHAMBERS ARE HYPOKINETIC LV EF IS ONLY 23% REMARKABLY DILATED RV AND RA MODERATE DEGREE MR AND SEVERE TR ASSOCIATED ALSO SEVERE RV FAILURE SEVERE PULMONARY HYPERTENSION RVSP IS 60 MM OF HG AND IS VERY HIGH
[2025-05-08] VITALS (12 sets, daily range): BP systolic 142–162; BP diastolic 100–129; PULSE 69–148; RESP 14–20; TEMP 96.9–98.1; O2SAT 93–100
[2025-05-08 07:07] LABS: Hemoglobin 12.0 g/dL (12.2-16.2)
[2025-05-08 07:09] LABS: Hematocrit 38.9 % (36.0-46.0); Mean Corpuscular Hemoglobin 22.9 pg (28.0-32.0); Mean Corpuscular Volume 74.4 fL (80.0-100.0); Nucleated Red Blood Cells % 0.2 %
[2025-05-08 07:24] LABS: Albumin 3.9 g/dL (3.2-4.8); Anion Gap 14 (5-15); BUN/Creatinine Ratio 16.7 (10.0-20.0); Blood Urea Nitrogen 9 mg/dL (9-23); Calcium 9.2 mg/dL (8.7-10.4); Carbon Dioxide 22 mmol/L (20-31); Potassium 3.9 mmol/L (3.5-5.1); Sodium 144 mmol/L (136-145); Triglycerides 119 mg/dL (< 150)
[2025-05-08 07:25] LABS: Cholesterol 109 mg/dL (< 200); Total Protein 6.8 g/dL (5.7-8.2)
[2025-05-08 07:29] LABS: Chloride 108 mmol/L (98-107); Glucose 73 mg/dL (74-106)
[2025-05-08 07:30] LABS: Alanine Aminotransferase < 9 U/L (7-40); Alkaline Phosphatase 171 U/L (46-116); Bilirubin, Total 1.2 mg/dL (0.2-1.0); HDL Cholesterol 36 mg/dL (40-59)
[2025-05-08] MEDS: PANTOPRAZOLE 40 MG TAB PO SCH (10:11)
[2025-05-08] MEDS: SPIRONOLACTONE 25 MG TAB PO SCH (10:11)
--- NOTE | 2025-05-08 10:28 | DVHPN2 ---
Subjective 74-year-old female with a history of atrial fibrillation on Eliquis, hypertension, hyperlipidemia, heart failure, seizures, asthma, comes with a chief complaint of left hand and left foot and ankle severe pain apparently after she fell 4 days ago. She came here because of severe pain in the ankle and left wrist area She was found to be in atrial fibrillation with rapid ventricular response She said she has been taking her medications however the patient appears to be a poor historian because now she says she never fell but she is having severe tenderness in the left wrist area and the left ankle Her heart rate is controlled now heart rate is about 100 but she is still in atrial fibrillation Echocardiogram was done shows an ejection fraction of 23% with dilated all cardiac chambers and hypokinesia and remarkably dilated right ventricle and right atrium with moderate degree MR and severe TR with severe pulmonary hypertension and RVSP is 60 Changes from previous H/P or p: Changes Eyes: No Pain, No Vision change, No Conjunctivae inflammation, No Eyelid inflammation, No Other, No Redness ENT: No Ear pain, No Ear discharge, No Nose pain, No Nose discharge, No Nose congestion, No Mouth pain, No Mouth swelling, No Throat pain, No Throat swelling, No Other Cardiovascular: No Chest Pain; Palpitations; No Orthopnea, No Paroxysmal Noc. Dyspnea; Edema; No Lt Headedness, No Other Respiratory: No Cough, No Dry; Shortness of breath; No SOB with excertion, No Wheezing, No Hemoptysis, No Pleuritic Pain, No Sputum, No Other Gastrointestinal: No Nausea, No Vomiting, No Abdominal Pain, No Diarrhea, No Constipation, No Melena, No Hematochezia, No Other Genitourinary: No Dysuria, No Frequency, No Incontinence, No Hematuria, No Retention, No Other Musculoskeletal: No other, No neck pain, No shoulder pain, No arm pain, No back pain, No hand pain; leg pain, foot pain Skin: No Rash, No Lesions, No Jaundice, No Bruising, No Other Objective Vitals Vital Signs Date Time Temp Pulse Resp B/P (MAP) Pulse Ox O2 Delivery O2 Flow Rate FiO2 05/08/25 10:12 104 163/113 05/08/25 10:09 20 05/08/25 05:00 98.1 95 98.1 05/07/25 20:00 Room Air* 0 21 Intake/Output Intake and Output 05/08/25 07:00 Intake Total 550 ml Output Total 0 ml Balance 550 ml Intake Oral 550 ml Output Stool Total 0 ml # Voids 2 General Appearance: Alert, Oriented X3, moderate distress Lungs: Other (Bilateral rhonchi) Cardiovascular: Other (Irregularly irregular heart rate 100) Abdomen: Normal bowel sounds, Soft, No tenderness, No hepatospenomegaly Extremities: No edema Medications Current Medications Medications Dose Ordered Sig/Ziyad Route Start Time Stop Time Status Last Admin Dose Admin Apixaban 5 mg BID PO 05/07/25 22:00 05/08/25 10:11 5 MG Metoprolol Tartrate 50 mg BID PO 05/07/25 22:00 05/08/25 10:12 50 MG Pantoprazole Sodium 40 mg DAILY PO 05/08/25 10:00 05/08/25 10:11 40 MG Sacubitril/ Valsartan 1 tab BID PO 05/07/25 22:00 05/08/25 10:12 1 TAB Furosemide 40 mg BIDD IV 05/07/25 18:00 05/08/25 05:40 40 MG Albuterol 2.5 mg Q4HPRN PRN NEB 05/07/25 13:15 Ipratropium [place] 0.5 mg Q4HPRN PRN NEB 05/07/25 13:15 Atorvastatin Calcium 20 mg HS PO 05/07/25 22:00 05/07/25 21:01 20 MG Spironolactone 25 mg DAILY PO 05/08/25 10:00 05/08/25 10:11 25 MG Nitroglycerin 0.4 mg Q5MINP PRN SL 05/07/25 13:15 Morphine Sulfate 2 mg Q6HPRN PRN IV 05/07/25 18:15 UNV Morphine Sulfate 2 mg Q6HPRN PRN IV 05/07/25 18:15 05/08/25 10:09 2 MG Laboratory Results Laboratory Tests 05/08/25 05:32 Chemistry Test 05/07/25 11:25 05/07/25 17:53 05/08/25 05:32 Albumin 4.1 g/dL (3.2-4.8) 3.9 g/dL (3.2-4.8) 3.9 g/dL (3.2-4.8) Calcium Level 9.3 mg/dL (8.7-10.4) 9.2 mg/dL (8.7-10.4) 9.2 mg/dL (8.7-10.4) Magnesium Level 1.8 mg/dL (1.6-2.6) Phosphorus Level 2.9 mg/dL (2.4-5.1) Total Protein 7.4 g/dL (5.7-8.2) 7.1 g/dL (5.7-8.2) 6.8 g/dL (5.7-8.2) Lipid panel Test 05/08/25 05:32 Cholesterol Level 109 mg/dL (< 200) HDL Cholesterol 36 mg/dL (40-59) L Triglycerides Level 119 mg/dL (< 150) Cardiac Markers Test 05/07/25 11:25 B-Type Natriuretic Peptide 1168.56 pg/mL (0-100) LFT Test 05/07/25 11:25 05/07/25 17:53 05/08/25 05:32 Alanine Aminotransferase (ALT) < 9 U/L (7-40) < 9 U/L (7-40) < 9 U/L (7-40) Alkaline Phosphatase 168 U/L (46-116) H 160 U/L (46-116) H 171 U/L (46-116) H Aspartate Amino Transferase (AST) 12 U/L (13-40) L 10 U/L (13-40) L 18 U/L (13-40) Total Bilirubin 0.9 mg/dL (0.2-1.0) 0.9 mg/dL (0.2-1.0) 1.2 mg/dL (0.2-1.0) H HgA1c, TSH Test 05/07/25 11:25 Thyroid Stimulating Hormone (TSH) 1.82 uIU/mL (0.55-4.78) Assessment/Plan Assessment/Plan Atrial fibrillation with a rapid ventricular response Acute on chronic congestive heart failure, systolic with reduced ejection fraction Acute hypoxic respiratory failure Pulmonary hypertension Hypertension Seizure disorder Left wrist and left foot injury, no fracture Generalized weakness 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
--- NOTE | 2025-05-08 12:07 | DVHINCON2 ---
Date Seen: May 08, 2025 Referring Physician MD Igor Reason for Consultation Atrial fibrillation and CHF exacerbation History of Present Illness This is a 74-year-old female patient who presents to the emergency room with chief complaint of left foot pain and palpitations. According to the patient's report, she states that she fell at home approximately four days ago. She describes a mechanical fall in which she landed on her left wrist and ankle. She states that since then she has been experiencing left foot and wrist pain as well as intermittent palpitations. She decided to come into the emergency room for further evaluation. Cardiology has now been consulted at this time for atrial fibrillation and CHF. Initial twelve electrocardiogram done in the emergency room reveals atrial fibrillation with uncontrolled rate and occasional PVCs. Serial troponin levels have been negative. At the time of assessment, the patient denies any cardiac symptoms. 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 Significant past medical history includes congestive heart failure, atrial fibrillation (on Eliquis), hypertension, dyslipidemia, seizure disorder, COPD, and asthma. The patient admits that she does not follow up with a adult basic studies teacher in the outpatient setting. Past Medical History Past medical history reviewed. No other significant than mentioned above. Past Surgical History Right great toe bunion removal Family History: Cardiovascular disease G8 FATHER FH: heart attack G8 FATHER FH: pancreatic disease G8 MOTHER Hypertension G8 MOTHER Family History Family history reviewed. Social History Denies the use of tobacco, alcohol or illicit drugs. Allergies: Coded Allergies: LEROY Inhibitors (Verified Allergy, Severe, ANAPHYLAXIS, 01/20/18) Home Meds Active Scripts Sacubitril-Valsartan (Entresto 24-26 mg) 1 Tab Tab, 1 TAB PO BID for 30 Days, #60 TAB 3 Refills Prov:KUSUM ALEX MD 02/12/25 Furosemide (Lasix) 40 Mg Tab, 40 MG PO DAILY for 30 Days, #30 TAB 3 Refills Prov:KUSUM ALEX MD 02/12/25 Apixaban Base (ELIQUIS) 5 Mg Tab, 5 MG PO BID for 30 Days, #60 TAB 3 Refills Prov:KUSUM ALEX MD 02/12/25 Dronedarone Hydrochloride (Multaq) 400 Mg Tab, 1 TAB PO BID, #60 TAB 5 Refills Prov:KUSUM ALEX MD 02/12/25 Metoprolol Tartrate (Metoprolol Tartrate) 50 Mg Tab, 50 MG PO BID for 30 Days, #60 TAB 3 Refills Prov:KUSUM ALEX MD 02/12/25 Ibuprofen Micronized (Ibuprofen) 600 Mg Tab, 600 MG PO Q6HP PRN, #20 TAB Prov:KUSUM ALEX MD 02/12/25 Apixaban Base (ELIQUIS) 5 Mg Tab, 5 MG PO BID for 30 Days, #60 TAB 3 Refills Prov:KUSUM ALEX MD 08/14/24 Sacubitril-Valsartan (Entresto 24-26 mg) 1 Tab Tab, 1 TAB PO BID for 30 Days, #60 TAB 3 Refills Prov:KUSUM ALEX MD 08/14/24 Furosemide (Lasix) 40 Mg Tab, 40 MG PO BID for 30 Days, #60 TAB 3 Refills Prov:KUSUM ALEX MD 08/14/24 Respiratory Therapy Supplies (Full Kit Nebulizer Set) Set Formerly [facility], [facility] XX, #1 Prov:KUSUM ALEX MD 08/13/24 Reported Medications Albuterol Sulfate (Albuterol Sulfate Hfa) 108 Mcg/Act Aer, 2 PUFF IN Q6HR PRN for WHEEZING for 25 Days, #18 08/12/24 Metoprolol Tartrate (Metoprolol Tartrate) 25 Mg Tab, 1 TAB PO BID for 90 Days, #180 08/12/24 Dronedarone Hydrochloride (Multaq) 400 Mg Tab, 1 TAB PO BIDWM for 90 Days, #180 08/12/24 Pantoprazole Sodium Sesquihydr (Protonix) 40 Mg Tab, 1 TAB PO DAILY for 90 Days 08/12/24 Home Meds Home medications reviewed. Current Medications Current Medications Medications (Trade) Dose Ordered Sig/Ziyad Route PRN Reason Start Time Stop Time Status Last Admin Apixaban (Eliquis) 5 mg BID PO 05/07/25 22:00 05/08/25 10:11 Metoprolol Tartrate (Lopressor Tablet) 50 mg BID PO 05/07/25 22:00 05/08/25 10:12 Pantoprazole Sodium (Protonix Tablet) 40 mg DAILY PO 05/08/25 10:00 05/08/25 10:11 Sacubitril/ Valsartan (Entresto 24-26 Mg tab) 1 tab BID PO 05/07/25 22:00 05/08/25 10:12 Furosemide (Lasix Injection) 40 mg BIDD IV 05/07/25 18:00 05/08/25 05:40 Albuterol (Ventolin Medneb) 2.5 mg Q4HPRN PRN NEB SHORTNESS OF BREATH 05/07/25 13:15 Ipratropium [place] (Atrovent Medneb) 0.5 mg Q4HPRN PRN NEB SHORTNESS OF BREATH 05/07/25 13:15 Atorvastatin Calcium (Lipitor) 20 mg HS PO 05/07/25 22:00 05/07/25 21:01 Spironolactone (Aldactone) 25 mg DAILY PO 05/08/25 10:00 05/08/25 10:11 Nitroglycerin (Ntrostat Sublingual) 0.4 mg Q5MINP PRN SL FOR CHEST PAIN 05/07/25 13:15 Morphine Sulfate 2 mg Q6HPRN PRN IV SEVERE PAIN (7-10 PAIN SCALE) 05/07/25 18:15 UNV Morphine Sulfate 2 mg Q6HPRN PRN IV SEVERE PAIN (7-10 PAIN SCALE) 05/07/25 18:15 05/08/25 10:28 DC 05/08/25 10:09 Morphine Sulfate 4 mg Q4HPRN PRN IV SEVERE PAIN (7-10 PAIN SCALE) 05/08/25 10:30 Acetaminophen (Tylenol Tablet) 650 mg Q6HP PRN PO MILD PAIN (1-3 PAIN SCALE) 05/08/25 10:30 Review of Systems Constitutional: No symptom reported Ears, Nose, & Throat: No symptom reported Eyes: No symptom reported Neurological: No symptoms reported Pulmonary/Respiratory: No symptoms reported Cardiovascular: Palpitations Gastrointestinal: No symptom reported Genitourinary: No symptom reported Musculoskeletal: Left foot pain Skin: No symptom reported Psychiatric: No symptom reported Endocrine: No symptom reported Hematologic/Lymphatic: No symptom reported Vital Signs Vital Signs Date Time Temp Pulse Resp B/P (MAP) Pulse Ox O2 Delivery O2 Flow Rate FiO2 05/08/25 10:12 104 163/113 05/08/25 10:09 20 05/08/25 09:00 97.0 94 97.0 05/08/25 08:10 Room Air* 0 21 Physical Exam General Appearance: Cooperative. Well-developed. Well-nourished. No acute distress. Pulmonary/Respiratory: Clear, bilateral breaths sounds. Cardiovascular/Chest: Irregularly irregular rate and rhythm Peripheral Pulses: 2+ Radial (R). 2+ Radial (L). 2+ Pedal (R). 2+ Pedal (L) Abdominal Exam: Normal bowel sounds. Ankle Exam: Negative ankle edema Lower extremities: Negative lower extremity edema Neuro/Mental Status: A/OX4, coherent. Thoughts/Psych: Normal thought pattern. Appropriate mood and affect. Good judgment and insight. Appearance: No acute distress. Skin Exam: Normal inspection. Normal color. Warm and dry. Labs/Diagnostic Data Labs Test 05/08/25 05:32 05/07/25 15:11 05/07/25 13:21 05/07/25 11:25 Range/Units White Blood Count 7.3 4.4-10.8 10^3/uL Red Blood Count 5.23 H 4.0-5.20 10^6/uL Hemoglobin 12.0 L 12.2-16.2 g/dL Hematocrit 38.9 36.0-46.0 % Mean Corpuscular Volume 74.4 L 80.0-100.0 fL Mean Corpuscular Hemoglobin 22.9 L 28.0-32.0 pg Mean Corpuscular Hemoglobin Concent 30.8 L 32.0-36.0 g/dL Red Cell Distribution Width 19.0 H 11.8-14.3 % Platelet Count 234 140-450 10^3/uL Mean Platelet Volume 8.1 6.9-10.8 fL Neutrophils (%) (Auto) 69.9 37.0-80.0 % Lymphocytes (%) (Auto) 19.3 10.0-50.0 % Monocytes (%) (Auto) 9.4 0.0-12.0 % Eosinophils (%) (Auto) 0.9 0.0-7.0 % Basophils (%) (Auto) 0.5 0.0-2.0 % Neutrophils # (Auto) 5.1 1.6-8.6 10 ^3/uL Lymphocytes # (Auto) 1.4 0.4-5.4 10 ^3/uL Monocytes # (Auto) 0.7 0-1.3 10 ^3/uL Eosinophils # (Auto) 0.1 0-0.8 10 ^3/uL Basophils # (Auto) 0 0-0.2 10 ^3/uL Nucleated Red Blood Cells 0.2 % Sodium Level 144 136-145 mmol/L Potassium Level 3.9 3.5-5.1 mmol/L Chloride Level 108 H 98-107 mmol/L Carbon Dioxide Level 22 20-31 mmol/L Anion Gap 14 5-15 Blood Urea Nitrogen 9 9-23 mg/dL Creatinine 0.54 L 0.550-1.02 mg/dL Glomerular Filtration Rate Calc 95 >90 mL/min BUN/Creatinine Ratio 16.7 10.0-20.0 Serum Glucose 73 L 74-106 mg/dL Calcium Level 9.2 8.7-10.4 mg/dL Total Bilirubin 1.2 H 0.2-1.0 mg/dL Aspartate Amino Transferase (AST) 18 13-40 U/L Alanine Aminotransferase (ALT) < 9 7-40 U/L Alkaline Phosphatase 171 H 46-116 U/L Total Protein 6.8 5.7-8.2 g/dL Albumin 3.9 3.2-4.8 g/dL Triglycerides Level 119 < 150 mg/dL Cholesterol Level 109 < 200 mg/dL LDL Cholesterol 53 < 100 mg/dL HDL Cholesterol 36 L 40-59 mg/dL Troponin I High Sensitivity 6 </=34 ng/L Lactic Acid Level 1.5 0.4-2.0 mmol/L Phosphorus Level 2.9 2.4-5.1 mg/dL Magnesium Level 1.8 1.6-2.6 mg/dL B-Type Natriuretic Peptide 1168.56 0-100 pg/mL Thyroid Stimulating Hormone (TSH) 1.82 0.55-4.78 uIU/mL Assessment Atrial fibrillation with a rapid ventricular response (on Eliquis) Acute on chronic decompensated HFrEF, NYHA class III Severe tricuspid valve regurgitation Moderate degree mitral valve regurgitation Hypertension Dyslipidemia COPD Severe pulmonary hypertension Hypokalemia, resolved Asthma Seizure disorder Plan/Recommendation We will continue with the following plan/recommendations (Dr. Staton): * Transthoracic echocardiogram reveals an EF of 23%, RVSP 60 mmHg * Initiate guideline directed medical therapy for CHF as tolerated * switch metoprolol tartrate to metoprolol succinate as per GDMT guidelines * Strict intake and output, daily weights, maintain fluid restriction and low- sodium diet * Preload and afterload reduction * [id number] VASc score: 5 points, HAS-BLED score: 2 points * Beta-lucie for rate control * Therapeutic Lovenox while inpatient; transition back to [facility] when appropriate * Monitor and replete electrolytes as needed, keep potassium greater than four and magnesium greater than two * Close cardiac surveillance Case discussed with . We will initiate the patient on guideline directed medical therapy for CHF. The patient was educated on the need to stay compliant on her heart failure medications. If no improvement in EF within 3-6 months on uninterrupted GDMT, the patient may qualify for ICD implantation. Further recommendations per clinical course and progression. Thank you for allowing us to care for this patient. Please call with any questions or concerns. Critical care time spent: 44 minutes This medical document was created using an electronic medical record system with voice recognition software and computerized dictation system. Although this document has been carefully reviewed, there might still be some phonetic and typographical errors. Occasional wrong-word or ``sound-alike substitutions may have occurred due to the inherent limitations of voice recognition software. These areas are purely typographical due to imperfections of the software programs and do not reflect any compromise in the patient's medical care. Please read the chart carefully and recognize, using context, where these substitutions have occurred. Plan discussed with: Patient NYHA Physical activity limitations: Class3(Marked) ordinary (activity causes symtoms) Date of Service: May 08, 2025 Billing Provider: IAN TRAN Cardiology Common Codes: 68379-CRPMALE INP/OBS CARE (High) Cardiology Consultation Codes: [id number] CONSULT <45MIN IAN TRAN May 08, 2025 12:07
[2025-05-08] MEDS ORDERED: hydrALAZINE HCL 20 MG/ML VL IV PRN (12:30)
[2025-05-08] MEDS: MORPHINE SULFATE 4 MG/ML SYR/VIAL IV PRN (16:44)
--- NOTE | 2025-05-08 19:18 | DVHINCON2 ---
Date Seen: May 08, 2025 Referring Physician MD Igor Reason for Consultation Atrial fibrillation and CHF exacerbation History of Present Illness This is a 74-year-old female with a past medical history of congestive heart failure, atrial fibrillation (on Eliquis), hypertension, dyslipidemia, seizure disorder, COPD, and asthma who presents to the emergency room with a complaint of left foot pain and palpitations. According to the patient's report, she states that she fell at home approximately four days ago. She describes a mechanical fall in which she landed on her left wrist and ankle. She states that since then she has been experiencing left foot and wrist pain as well as intermittent palpitations. She decided to come into the emergency room for further evaluation. Initial twelve electrocardiogram done in the emergency room reveals atrial fibrillation with uncontrolled rate and occasional PVCs. Serial troponin levels have been negative. At the time of assessment, the patient denies any cardiac symptoms. The patient remains in atrial fibrillation on nurse monitoring. The patient admits that she does not follow up with a facility manager in the outpatient setting. Cardiology has now been consulted at this time for atrial fibrillation and CHF. Past Medical History Past medical history reviewed. No other significant than mentioned above. Past Surgical History Right great toe bunion removal Family History: Cardiovascular disease G8 FATHER FH: heart attack G8 FATHER FH: pancreatic disease G8 MOTHER Hypertension G8 MOTHER Allergies: Coded Allergies: LEROY Inhibitors (Verified Allergy, Severe, ANAPHYLAXIS, 01/20/18) Home Meds Active Scripts Sacubitril-Valsartan (Entresto 24-26 mg) 1 Tab Tab, 1 TAB PO BID for 30 Days, #60 TAB 3 Refills Prov:KUSUM ALEX MD 02/12/25 Furosemide (Lasix) 40 Mg Tab, 40 MG PO DAILY for 30 Days, #30 TAB 3 Refills Prov:KUSUM ALEX MD 02/12/25 Apixaban Base (ELIQUIS) 5 Mg Tab, 5 MG PO BID for 30 Days, #60 TAB 3 Refills Prov:KUSUM ALEX MD 02/12/25 Dronedarone Hydrochloride (Multaq) 400 Mg Tab, 1 TAB PO BID, #60 TAB 5 Refills Prov:KUSUM ALEX MD 02/12/25 Metoprolol Tartrate (Metoprolol Tartrate) 50 Mg Tab, 50 MG PO BID for 30 Days, #60 TAB 3 Refills Prov:KUSUM ALEX MD 02/12/25 Ibuprofen Micronized (Ibuprofen) 600 Mg Tab, 600 MG PO Q6HP PRN, #20 TAB Prov:KUSUM ALEX MD 02/12/25 Apixaban Base (ELIQUIS) 5 Mg Tab, 5 MG PO BID for 30 Days, #60 TAB 3 Refills Prov:KUSUM ALEX MD 08/14/24 Sacubitril-Valsartan (Entresto 24-26 mg) 1 Tab Tab, 1 TAB PO BID for 30 Days, #60 TAB 3 Refills Prov:KUSUM ALEX MD 08/14/24 Furosemide (Lasix) 40 Mg Tab, 40 MG PO BID for 30 Days, #60 TAB 3 Refills Prov:KUSUM ALEX MD 08/14/24 Respiratory Therapy Supplies (Full Kit Nebulizer Set) Set [facility], [facility] XX, #1 Prov:KUSUM ALEX MD 08/13/24 Reported Medications Albuterol Sulfate (Albuterol Sulfate Hfa) 108 Mcg/Act Aer, 2 PUFF IN Q6HR PRN for WHEEZING for 25 Days, #18 08/12/24 Metoprolol Tartrate (Metoprolol Tartrate) 25 Mg Tab, 1 TAB PO BID for 90 Days, #180 08/12/24 Dronedarone Hydrochloride (Multaq) 400 Mg Tab, 1 TAB PO BIDWM for 90 Days, #180 08/12/24 Pantoprazole Sodium Sesquihydr (Protonix) 40 Mg Tab, 1 TAB PO DAILY for 90 Days 08/12/24 Current Medications Current Medications Medications (Trade) Dose Ordered Sig/Ziyad Route PRN Reason Start Time Stop Time Status Last Admin Apixaban (Eliquis) 5 mg BID PO 05/07/25 22:00 05/08/25 12:04 DC 05/08/25 10:11 Metoprolol Tartrate (Lopressor Tablet) 50 mg BID PO 05/07/25 22:00 05/08/25 12:02 DC 05/08/25 10:12 Pantoprazole Sodium (Protonix Tablet) 40 mg DAILY PO 05/08/25 10:00 05/08/25 10:11 Sacubitril/ Valsartan (Entresto 24-26 Mg tab) 1 tab BID PO 05/07/25 22:00 05/08/25 10:12 Furosemide (Lasix Injection) 40 mg BIDD IV 05/07/25 18:00 05/08/25 05:40 Atorvastatin Calcium (Lipitor) 20 mg HS PO 05/07/25 22:00 05/07/25 21:01 Spironolactone (Aldactone) 25 mg DAILY PO 05/08/25 10:00 05/08/25 10:11 Morphine Sulfate 2 mg Q6HPRN PRN IV SEVERE PAIN (7-10 PAIN SCALE) 05/07/25 18:15 UNV Morphine Sulfate 2 mg Q6HPRN PRN IV SEVERE PAIN (7-10 PAIN SCALE) 05/07/25 18:15 05/08/25 10:28 DC 05/08/25 10:09 Morphine Sulfate 4 mg Q4HPRN PRN IV SEVERE PAIN (7-10 PAIN SCALE) 05/08/25 10:30 Acetaminophen (Tylenol Tablet) 650 mg Q6HP PRN PO MILD PAIN (1-3 PAIN SCALE) 05/08/25 10:30 Metoprolol Succinate (Toprol Xl) 50 mg DAILY PO 05/09/25 10:00 Empaglifozin (Jardiance) 10 mg DAILY PO 05/09/25 10:00 Enoxaparin Sodium (Lovenox) 80 mg Q12HR SC 05/08/25 22:00 Hydralazine HCl (Apresoline Injection) 10 mg Q6HP PRN IV SBP>150 05/08/25 12:30 Review of Systems Constitutional: No symptom reported Ears, Nose, & Throat: No symptom reported Eyes: No symptom reported Neurological: No symptoms reported Pulmonary/Respiratory: No symptoms reported Cardiovascular: Palpitations Gastrointestinal: No symptom reported Genitourinary: No symptom reported Musculoskeletal: Left foot pain Skin: No symptom reported Psychiatric: No symptom reported Endocrine: No symptom reported Hematologic/Lymphatic: No symptom reported Vital Signs Vital Signs Date Time Temp Pulse Resp B/P (MAP) Pulse Ox O2 Delivery O2 Flow Rate FiO2 05/08/25 12:38 96.9 80 18 142/110 (121) 95 96.9 05/08/25 08:10 Room Air* 0 21 Physical Exam GENERAL: Alert and oriented x 3. No acute distress. EYES: PERRL, EOMI. Anicteric. HENT: Moist mucous membranes. LUNGS: Clear to auscultation bilaterally. CARDIOVASCULAR: Irregular rate and rhythm. ABDOMEN: Soft, nontender and nondistended. EXTREMITIES: No edema. NEUROLOGIC: No focal neurological deficits. SKIN: Warm, dry. Labs/Diagnostic Data Labs Test 05/08/25 05:32 05/07/25 15:11 05/07/25 13:21 05/07/25 11:25 Range/Units White Blood Count 7.3 4.4-10.8 10^3/uL Red Blood Count 5.23 H 4.0-5.20 10^6/uL Hemoglobin 12.0 L 12.2-16.2 g/dL Hematocrit 38.9 36.0-46.0 % Mean Corpuscular Volume 74.4 L 80.0-100.0 fL Mean Corpuscular Hemoglobin 22.9 L 28.0-32.0 pg Mean Corpuscular Hemoglobin Concent 30.8 L 32.0-36.0 g/dL Red Cell Distribution Width 19.0 H 11.8-14.3 % Platelet Count 234 140-450 10^3/uL Mean Platelet Volume 8.1 6.9-10.8 fL Neutrophils (%) (Auto) 69.9 37.0-80.0 % Lymphocytes (%) (Auto) 19.3 10.0-50.0 % Monocytes (%) (Auto) 9.4 0.0-12.0 % Eosinophils (%) (Auto) 0.9 0.0-7.0 % Basophils (%) (Auto) 0.5 0.0-2.0 % Neutrophils # (Auto) 5.1 1.6-8.6 10 ^3/uL Lymphocytes # (Auto) 1.4 0.4-5.4 10 ^3/uL Monocytes # (Auto) 0.7 0-1.3 10 ^3/uL Eosinophils # (Auto) 0.1 0-0.8 10 ^3/uL Basophils # (Auto) 0 0-0.2 10 ^3/uL Nucleated Red Blood Cells 0.2 % Sodium Level 144 136-145 mmol/L Potassium Level 3.9 3.5-5.1 mmol/L Chloride Level 108 H 98-107 mmol/L Carbon Dioxide Level 22 20-31 mmol/L Anion Gap 14 5-15 Blood Urea Nitrogen 9 9-23 mg/dL Creatinine 0.54 L 0.550-1.02 mg/dL Glomerular Filtration Rate Calc 95 >90 mL/min BUN/Creatinine Ratio 16.7 10.0-20.0 Serum Glucose 73 L 74-106 mg/dL Hemoglobin A1c 5.8 H <5.7 % A1C Calcium Level 9.2 8.7-10.4 mg/dL Magnesium Level 1.9 1.6-2.6 mg/dL Total Bilirubin 1.2 H 0.2-1.0 mg/dL Aspartate Amino Transferase (AST) 18 13-40 U/L Alanine Aminotransferase (ALT) < 9 7-40 U/L Alkaline Phosphatase 171 H 46-116 U/L Total Protein 6.8 5.7-8.2 g/dL Albumin 3.9 3.2-4.8 g/dL Triglycerides Level 119 < 150 mg/dL Cholesterol Level 109 < 200 mg/dL LDL Cholesterol 53 < 100 mg/dL HDL Cholesterol 36 L 40-59 mg/dL Troponin I High Sensitivity 6 </=34 ng/L Lactic Acid Level 1.5 0.4-2.0 mmol/L Phosphorus Level 2.9 2.4-5.1 mg/dL B-Type Natriuretic Peptide 1168.56 0-100 pg/mL Thyroid Stimulating Hormone (TSH) 1.82 0.55-4.78 uIU/mL Assessment Atrial fibrillation with a rapid ventricular response (on Eliquis). Acute on chronic decompensated HFrEF, NYHA class III. Severe tricuspid valve regurgitation. Moderate degree mitral valve regurgitation. Hypertension. Dyslipidemia. COPD. Severe pulmonary hypertension. Hypokalemia, resolved. Asthma. Seizure disorder. Plan/Recommendation I agree with your ongoing assessment and care of plan. Patient has been seen by Amber Beal NP on my behalf, her and I discussed the plan with the patient. Transthoracic echocardiogram reveals an EF of 23%, RVSP 60 mmHg. Initiate guideline directed medical therapy for CHF as tolerated. Switch metoprolol tartrate to metoprolol succinate as per GDMT guidelines. Strict intake and output, daily weights, maintain fluid restriction and low- sodium diet. Preload and afterload reduction. [id number] VASc score: 5 points, HAS-BLED score: 2 points. Beta-lucie for rate control. Therapeutic Lovenox while inpatient; transition back to Eliquis when appropriate. Monitor and replete electrolytes as needed, keep potassium greater than four and magnesium greater than two. Close cardiac surveillance. We will initiate the patient on guideline directed medical therapy for CHF. The patient was educated on the need to stay compliant on her heart failure medications. If no improvement in EF within 3-6 months on uninterrupted GDMT, the patient may qualify for ICD implantation. Further recommendations per clinical course and progression. Additional plan as per the hospital course. Plan discussed with: Patient NYHA Physical activity limitations: Class3(Marked) ordinary Date of Service: May 08, 2025 Billing Provider: TOVA DUTTON MD Cardiology Common Codes: 75836-[id number] INP/OBS CARE (High) Cardiology Consultation Codes: [id number] CONSULT <45MIN TOVA DUTTON MD May 08, 2025 14:22
[2025-05-08] MEDS: ENOXAPARIN SOD 80 MG/0.8ML SYRINGE SC SCH (21:25)
[2025-05-08] MEDS: METOPROLOL TARTRATE 50 MG TAB PO SCH (23:27)
[2025-05-09] VITALS (11 sets, daily range): BP systolic 93–116; BP diastolic 73–84; PULSE 73–114; RESP 16–20; TEMP 97–98.8; O2SAT 0–98
[2025-05-09 07:15] LABS: Anion Gap 13 (5-15); Carbon Dioxide 29 mmol/L (20-31); Chloride 99 mmol/L (98-107); Sodium 141 mmol/L (136-145)
[2025-05-09 07:16] LABS: Calcium 9.4 mg/dL (8.7-10.4)
[2025-05-09 07:21] LABS: BUN/Creatinine Ratio 12.9 (10.0-20.0); Blood Urea Nitrogen 12 mg/dL (9-23); Glucose 92 mg/dL (74-106); Triglycerides 99 mg/dL (< 150)
[2025-05-09 07:23] LABS: Cholesterol 106 mg/dL (< 200)
[2025-05-09 07:35] LABS: HDL Cholesterol 35 mg/dL (40-59); Magnesium 1.6 mg/dL (1.6-2.6); Potassium 3.1 mmol/L (3.5-5.1)
--- NOTE | 2025-05-09 09:41 | ECG ---
[facility] Test Date: 2025-05-08 Test Time: 21:54:53 Pat Name: ALIREZA VILLEGAS Department: Room: 0219T B Gender: F Beam Department Supervisor: calvin : [id number] Requested By: RADHA TOUSSAINT Order Number: [id number] Reading MD: Geronimo Huynh Measurements Intervals [place] Rate: 136 P: 0 CT: 0 QRS: -3 QRSD: 76 T: 196 QT: 348 QTc: 524 Interpretive Statements Atrial fibrillation Paired ventricular premature complexes RSR' in V1 or V2, probably normal variant Probable LVH with secondary repol abnrm Prolonged QT interval Electronically Signed On 05-13-2025 8:17:17 PST by Geronimo Huynh Please click the below link to view image of tracing.
[2025-05-09] MEDS ORDERED: METOPROLOL SUCCINATE XL 50 MG TAB PO SCH (10:00)
[2025-05-09] MEDS: MAGNESIUM SULFATE 1GM/100ML 100 ML IV SCH (10:25)
[2025-05-09] MEDS: EMPAGLIFLOZIN 10 MG TAB PO SCH (10:33)
[2025-05-09] MEDS: POTASSIUM CHL 20 Meq TABLET PO ONE ×2 (10:33→15:52)
--- NOTE | 2025-05-09 11:45 | DVHPN2 ---
Subjective She is complaining of right knee pain in the right wrist pain today Changes from previous H/P or p: Changes Eyes: No Pain, No Vision change, No Conjunctivae inflammation, No Eyelid inflammation, No Other, No Redness ENT: No Ear pain, No Ear discharge, No Nose pain, No Nose discharge, No Nose congestion, No Mouth pain, No Mouth swelling, No Throat pain, No Throat swelling, No Other Cardiovascular: No Chest Pain; Palpitations; No Orthopnea, No Paroxysmal Noc. Dyspnea; Edema; No Lt Headedness, No Other Respiratory: No Cough, No Dry; Shortness of breath; No SOB with excertion, No Wheezing, No Hemoptysis, No Pleuritic Pain, No Sputum, No Other Gastrointestinal: No Nausea, No Vomiting, No Abdominal Pain, No Diarrhea, No Constipation, No Melena, No Hematochezia, No Other Genitourinary: No Dysuria, No Frequency, No Incontinence, No Hematuria, No Retention, No Other Musculoskeletal: No other, No neck pain, No shoulder pain, No arm pain, No back pain, No hand pain; leg pain, foot pain Skin: No Rash, No Lesions, No Jaundice, No Bruising, No Other Objective Vitals Vital Signs Date Time Temp Pulse Resp B/P (MAP) Pulse Ox O2 Delivery O2 Flow Rate FiO2 05/09/25 10:58 107 20 104/72 05/09/25 10:00 94 Room Air 0.0 05/09/25 10:00 21 05/09/25 09:00 97.0 97.0 Intake/Output Intake and Output 05/09/25 07:00 Intake Total 100 ml Output Total 500 ml Balance -400 ml Intake Oral 100 ml Output Urine Total 500 ml General Appearance: Alert, Oriented X3, moderate distress Lungs: Other (Bilateral rhonchi) Cardiovascular: Other (Irregularly irregular heart rate 100) Abdomen: Normal bowel sounds, Soft, No tenderness, No hepatospenomegaly Extremities: No edema Medications Current Medications Medications Dose Ordered Sig/Ziyad Route Start Time Stop Time Status Last Admin Dose Admin Pantoprazole Sodium 40 mg DAILY PO 05/08/25 10:00 05/09/25 10:33 40 MG Sacubitril/ Valsartan 1 tab BID PO 05/07/25 22:00 05/09/25 10:33 1 TAB Furosemide 40 mg BIDD IV 05/07/25 18:00 05/09/25 05:53 40 MG Albuterol 2.5 mg Q4HPRN PRN NEB 05/07/25 13:15 Ipratropium [place] 0.5 mg Q4HPRN PRN NEB 05/07/25 13:15 Atorvastatin Calcium 20 mg HS PO 05/07/25 22:00 05/08/25 21:24 20 MG Spironolactone 25 mg DAILY PO 05/08/25 10:00 05/09/25 10:33 25 MG Nitroglycerin 0.4 mg Q5MINP PRN SL 05/07/25 13:15 Morphine Sulfate 2 mg Q6HPRN PRN IV 05/07/25 18:15 UNV Morphine Sulfate 4 mg Q4HPRN PRN IV 05/08/25 10:30 05/09/25 10:58 4 MG Acetaminophen 650 mg Q6HP PRN PO 05/08/25 10:30 Empaglifozin 10 mg DAILY PO 05/09/25 10:00 05/09/25 10:33 10 MG Enoxaparin Sodium 80 mg Q12HR SC 05/08/25 22:00 05/09/25 10:34 80 MG Hydralazine HCl 10 mg Q6HP PRN IV 05/08/25 12:30 Metoprolol Tartrate 50 mg BID PO 05/08/25 23:15 05/08/25 23:27 50 MG Magnesium Sulfate/ Dextrose 100 ml @ 100 mls/hr Q1HR IV 05/09/25 10:00 05/09/25 11:59 05/09/25 10:25 100 MLS/HR Laboratory Results Laboratory Tests 05/08/25 05:32 05/09/25 06:00 Chemistry Test 05/09/25 06:00 Calcium Level 9.4 mg/dL (8.7-10.4) Magnesium Level 1.6 mg/dL (1.6-2.6) Lipid panel Test 05/09/25 06:00 Cholesterol Level 106 mg/dL (< 200) HDL Cholesterol 35 mg/dL (40-59) L Triglycerides Level 99 mg/dL (< 150) Assessment/Plan Assessment/Plan Atrial fibrillation with a rapid ventricular response Acute on chronic congestive heart failure, systolic with reduced ejection fraction Acute hypoxic respiratory failure Pulmonary hypertension Hypertension Seizure disorder Left wrist and left foot injury, no fracture Generalized weakness 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 Hyper natremia Hypokalemia Plan Continue Eliquis Lasix IV Cardiology consult Echocardiogram showed ejection fraction 23% Metoprolol for rate control Replace potassium as needed Entresto Aldactone Lipitor Pain control morphine as needed 05/09/2025: Multiple joint pain rule out gout Check the uric acid level Hypomagnesemia: Replace Hypokalemia: Replace Lovenox Jardiance Lasix Metoprolol Entresto Aldactone Physical therapy Plan discussed with: Patient My Orders Orders - KUSUM ALEX MD Procedure Category Date Status Time Magnesium Sulfate PHA 05/09/25 In Process 1gm/100ml 10:00 Date of Service: May 09, 2025 Billing Provider: KUSUM ALEX MD Common Visit Codes: NOT BILLABLE KUSUM ALEX MD May 09, 2025 11:45
[2025-05-09] MEDS: METOPROLOL TARTRATE 50 MG TAB PO ONE (13:51)
[2025-05-09] MEDS: DIGOXIN (250MCG/ML) 2 ML AMPULE IV ONE (15:54)
--- NOTE | 2025-05-09 17:33 | DVHPN2 ---
Consult Progress Note Subjective Other Systems: The patient remains in atrial fibrillation with uncontrolled rate on monitor (rate currently 130's) The patient denies any cardiac symptoms but is complaining of right wrist pain and bilateral leg pain today. Objective vital signs Vital Sign Date Time Temp Pulse Resp B/P (MAP) Pulse Ox O2 Delivery O2 Flow Rate FiO2 05/09/25 16:49 97.2 102 20 110/84 (93) 92 97.2 05/09/25 10:00 Room Air 0.0 05/09/25 10:00 21 Total Intake and Output 05/08/25 05/08/25 05/09/25 15:00 23:00 07:00 Intake Total 100 ml 0 ml Output Total 200 ml 300 ml Balance -100 ml -300 ml medications Current Medications Medications Dose Ordered Sig/Ziyad Route Start Time Stop Time Status Last Admin Dose Admin Pantoprazole Sodium 40 mg DAILY PO 05/08/25 10:00 05/09/25 10:33 40 MG Sacubitril/ Valsartan 1 tab BID PO 05/07/25 22:00 05/09/25 10:33 1 TAB Furosemide 40 mg BIDD IV 05/07/25 18:00 05/09/25 05:53 40 MG Albuterol 2.5 mg Q4HPRN PRN NEB 05/07/25 13:15 Ipratropium [place] 0.5 mg Q4HPRN PRN NEB 05/07/25 13:15 Atorvastatin Calcium 20 mg HS PO 05/07/25 22:00 05/08/25 21:24 20 MG Spironolactone 25 mg DAILY PO 05/08/25 10:00 05/09/25 10:33 25 MG Nitroglycerin 0.4 mg Q5MINP PRN SL 05/07/25 13:15 Morphine Sulfate 2 mg Q6HPRN PRN IV 05/07/25 18:15 UNV Morphine Sulfate 4 mg Q4HPRN PRN IV 05/08/25 10:30 05/09/25 10:58 4 MG Acetaminophen 650 mg Q6HP PRN PO 05/08/25 10:30 Empaglifozin 10 mg DAILY PO 05/09/25 10:00 05/09/25 10:33 10 MG Enoxaparin Sodium 80 mg Q12HR SC 05/08/25 22:00 05/09/25 10:34 80 MG Hydralazine HCl 10 mg Q6HP PRN IV 05/08/25 12:30 Metoprolol Tartrate 50 mg BID PO 05/08/25 23:15 05/08/25 23:27 50 MG Amiodarone HCl 250 ml @ 16.66 mls/ hr Q15H1M IV 05/09/25 21:30 Examination: GENERAL:Abnormal (Generalized weakness), LUNGS:Normal, CVS:Abnormal (Atrial fibrillation with uncontrolled rate), NEURO:Normal laboratory and microbiology Laboratory Tests 05/09/25 06:00 05/08/25 05:32 Test 05/09/25 06:00 Range/Units Serum Glucose 92 74-106 mg/dL Problem List/Assessment/Plan Problem List/Assessment/Plan Atrial fibrillation with a rapid ventricular response (on Eliquis) Acute on chronic decompensated HFrEF, NYHA class III Associated right-sided heart failure ?Ischemic vs tachycardia-induced cardiomyopathy Severe tricuspid valve regurgitation Moderate degree mitral valve regurgitation Hypertension Dyslipidemia COPD Severe pulmonary hypertension Hypokalemia, resolved Asthma Seizure disorder Plan/Recommendations (Dr. Staton): * Transthoracic echocardiogram reveals an EF of 23%, RVSP 60 mmHg * Initiate guideline directed medical therapy for CHF as tolerated * switch metoprolol tartrate to metoprolol succinate as per GDMT guidelines * Strict intake and output, daily weights, maintain fluid restriction and low- sodium diet * Preload and afterload reduction * [id number] VASc score: 5 points, HAS-BLED score: 2 points * Beta-lucie for rate control * Therapeutic Lovenox while inpatient; transition back to Eliquis when appropriate * Loading dose digoxin therapy * Monitor and replete electrolytes as needed, keep potassium greater than four and magnesium greater than two * Close cardiac surveillance Patient was seen and evaluated at bedside with . The patient denies any previous ischemic workup. While at bedside, the patient is complaining of excruciating pain to her right wrist along with pain in her bilateral legs. Manager Supplier assessed patient who was not able to lie in a flat position at this time due to excruciating pain. We may consider ischemic workup in the future when patient is able to lie flat for coronary angiogram. In the meantime, continue with medical management. Continue with guideline directed medical therapy for CHF. The patient was educated on the need to stay compliant on her heart failure medications. If no improvement in EF within 3-6 months on uninterrupted GDMT, the patient may qualify for ICD implantation. Further recommendations per clinical course and progression. Thank you for allowing us to care for this patient. Please call with any questions or concerns. Critical care time spent: 44 minutes This medical document was created using an electronic medical record system with voice recognition software and computerized dictation system. Although this document has been carefully reviewed, there might still be some phonetic and typographical errors. Occasional wrong-word or ``sound-alike substitutions may have occurred due to the inherent limitations of voice recognition software. These areas are purely typographical due to imperfections of the software programs and do not reflect any compromise in the patient's medical care. Please read the chart carefully and recognize, using context, where these substitutions have occurred. Plan discussed with: Patient, Other (Bedside RN Don) Date of Service: May 09, 2025 Billing Provider: IAN TRAN Common Visit Codes: [id number] INP/OBS CARE(HIGH) IAN TRAN May 09, 2025 17:33
[2025-05-09] MEDS: AMIODARONE BOLUS KIT 100 ML IV ONE (17:52)
--- NOTE | 2025-05-09 18:33 | DVH ---
CLINICAL INDICATION: right wrist pain on movement post fall TECHNIQUE: 2 radiographic views of the right wrist were obtained. COMPARISON: XY L WRIST 3+ VIEW XRAY on DOS: 05/07/25 FINDINGS/IMPRESSION: There are no fractures or dislocations. Erosive changes are noted to the distal ulna. Findings may represent rheumatoid arthritis or rheumatoid variant. Osteoarthritis is also seen at the carpometacarpal joint of the thumb.
--- NOTE | 2025-05-09 19:08 | DVHPN2 ---
Consult Progress Note Subjective Other Systems: Patient was seen and evaluated in follow up. The patient remains in atrial fibrillation with uncontrolled rate on monitor (rate currently 130's) The patient denies any cardiac symptoms but is complaining of right wrist pain and bilateral leg pain today. K 3.1. Telemetry reviewed. Objective vital signs Vital Sign Date Time Temp Pulse Resp B/P (MAP) Pulse Ox O2 Delivery O2 Flow Rate FiO2 05/09/25 16:49 97.2 102 20 110/84 (93) 92 97.2 05/09/25 10:00 Room Air 0.0 05/09/25 10:00 21 Total Intake and Output 05/08/25 05/08/25 05/09/25 15:00 23:00 07:00 Intake Total 100 ml 0 ml Output Total 200 ml 300 ml Balance -100 ml -300 ml medications Current Medications Medications Dose Ordered Sig/Ziyad Route Start Time Stop Time Status Last Admin Dose Admin Pantoprazole Sodium 40 mg DAILY PO 05/08/25 10:00 05/09/25 10:33 40 MG Sacubitril/ Valsartan 1 tab BID PO 05/07/25 22:00 05/09/25 10:33 1 TAB Furosemide 40 mg BIDD IV 05/07/25 18:00 05/09/25 05:53 40 MG Albuterol 2.5 mg Q4HPRN PRN NEB 05/07/25 13:15 Ipratropium [place] 0.5 mg Q4HPRN PRN NEB 05/07/25 13:15 Atorvastatin Calcium 20 mg HS PO 05/07/25 22:00 05/08/25 21:24 20 MG Spironolactone 25 mg DAILY PO 05/08/25 10:00 05/09/25 10:33 25 MG Nitroglycerin 0.4 mg Q5MINP PRN SL 05/07/25 13:15 Morphine Sulfate 2 mg Q6HPRN PRN IV 05/07/25 18:15 UNV Morphine Sulfate 4 mg Q4HPRN PRN IV 05/08/25 10:30 05/09/25 10:58 4 MG Acetaminophen 650 mg Q6HP PRN PO 05/08/25 10:30 Empaglifozin 10 mg DAILY PO 05/09/25 10:00 05/09/25 10:33 10 MG Enoxaparin Sodium 80 mg Q12HR SC 05/08/25 22:00 05/09/25 10:34 80 MG Hydralazine HCl 10 mg Q6HP PRN IV 05/08/25 12:30 Amiodarone HCl 250 ml @ 16.66 mls/ hr Q15H1M IV 05/09/25 21:30 Metoprolol Succinate 100 mg DAILY PO 05/10/25 10:00 UNV Examination: GENERAL:Abnormal (Generalized weakness), LUNGS:Normal, CVS:Abnormal (Atrial fibrillation with uncontrolled rate), NEURO:Normal laboratory and microbiology Laboratory Tests 05/09/25 06:00 05/08/25 05:32 Test 05/09/25 06:00 Range/Units Serum Glucose 92 74-106 mg/dL Problem List/Assessment/Plan Problem List/Assessment/Plan Problem List Atrial fibrillation with a rapid ventricular response (on Eliquis). Acute on chronic decompensated HFrEF, NYHA class III. Associated right-sided heart failure. ?Ischemic vs tachycardia-induced cardiomyopathy. Severe tricuspid valve regurgitation. Moderate degree mitral valve regurgitation. Hypertension. Dyslipidemia. COPD. Severe pulmonary hypertension. Hypokalemia, resolved. Asthma. Seizure disorder. Plan/Recommendation Continued all current supportive medical care. Patient has been seen by Amber Beal NP on my behalf, her and I discussed the plan with the patient. Transthoracic echocardiogram reveals an EF of 23%, RVSP 60 mmHg. Initiate guideline directed medical therapy for CHF as tolerated. Switch metoprolol tartrate to metoprolol succinate as per GDMT guidelines. Strict intake and output, daily weights, maintain fluid restriction and low- sodium diet. Preload and afterload reduction. [id number] VASc score: 5 points, HAS-BLED score: 2 points. Beta-lucie for rate control. Therapeutic Lovenox while inpatient; transition back to Eliquis when appropriate. Loading dose digoxin therapy. Monitor and replete electrolytes as needed, keep potassium greater than four and magnesium greater than two. Close cardiac surveillance. The patient denies any previous ischemic workup. While at bedside, the patient is complaining of excruciating pain to her right wrist along with pain in her bilateral legs. I assessed the patient who was not able to lie in a flat position at this time due to excruciating pain. We may consider ischemic workup in the future when patient is able to lie flat for coronary angiogram. In the meantime, continue with medical management. Continue with guideline directed medical therapy for CHF. The patient was educated on the need to stay compliant on her heart failure medications. If no improvement in EF within 3-6 months on uninterrupted GDMT, the patient may qualify for ICD implantation. Further recommendations per clinical course and progression. Additional plan as per the hospital course. Plan discussed with: Patient Date of Service: May 09, 2025 Billing Provider: TOVA DUTTON MD Cardiology Common Codes: [id number] [facility](High TOVA DUTTON MD May 09, 2025 17:45
[2025-05-10] VITALS (14 sets, daily range): BP systolic 96–162; BP diastolic 55–84; PULSE 76–116; RESP 16–22; TEMP 97.5–98.3; O2SAT 92–100
[2025-05-10 07:03] LABS: Anion Gap 12 (5-15); Carbon Dioxide 27 mmol/L (20-31); Chloride 98 mmol/L (98-107); Sodium 137 mmol/L (136-145)
[2025-05-10 07:04] LABS: Calcium 9.0 mg/dL (8.7-10.4)
[2025-05-10 07:09] LABS: BUN/Creatinine Ratio 22.6 (10.0-20.0); Blood Urea Nitrogen 19 mg/dL (9-23); Glucose 91 mg/dL (74-106); Magnesium 2.1 mg/dL (1.6-2.6)
[2025-05-10 07:21] LABS: Potassium 3.3 mmol/L (3.5-5.1)
[2025-05-10] MEDS: POTASSIUM CHL 20 Meq TABLET PO ONE ×2 (09:16→09:59)
[2025-05-10] MEDS: METOPROLOL SUCCINATE XL 50 MG TAB PO SCH (09:17)
[2025-05-10] MEDS: COLCHICINE 0.6 MG CAP PO SCH (09:18)
--- NOTE | 2025-05-10 10:28 | DVHPN2 ---
Consult Progress Note Date Seen: May 10, 2025 Subjective Review of Systems: CVS:Normal, RESPIRATORY:Normal, MSK:Abnormal, NEURO:Normal Other Systems: Denies any cardiac symptoms. C/o tenderness to movement and palpation to BLEs Objective vital signs Vital Sign Date Time Temp Pulse Resp B/P (MAP) Pulse Ox O2 Delivery O2 Flow Rate FiO2 05/10/25 10:00 115 16 120/74 05/10/25 08:55 98.0 92 98.0 05/10/25 08:27 Room Air* 0 21 Total Intake and Output 05/09/25 05/09/25 05/10/25 15:00 23:00 07:00 Intake Total 200 ml 400 ml 990 ml Output Total 650 ml 1250 ml Balance 200 ml -250 ml -260 ml medications Current Medications Medications Dose Ordered Sig/Ziyad Route Start Time Stop Time Status Last Admin Dose Admin Pantoprazole Sodium 40 mg DAILY PO 05/08/25 10:00 05/10/25 09:18 40 MG Sacubitril/ Valsartan 1 tab BID PO 05/07/25 22:00 05/10/25 09:16 1 TAB Furosemide 40 mg BIDD IV 05/07/25 18:00 05/10/25 05:34 40 MG Albuterol 2.5 mg Q4HPRN PRN NEB 05/07/25 13:15 Ipratropium [place] 0.5 mg Q4HPRN PRN NEB 05/07/25 13:15 Atorvastatin Calcium 20 mg HS PO 05/07/25 22:00 05/09/25 21:49 20 MG Spironolactone 25 mg DAILY PO 05/08/25 10:00 05/10/25 09:16 25 MG Nitroglycerin 0.4 mg Q5MINP PRN SL 05/07/25 13:15 Morphine Sulfate 2 mg Q6HPRN PRN IV 05/07/25 18:15 UNV Morphine Sulfate 4 mg Q4HPRN PRN IV 05/08/25 10:30 05/10/25 10:00 4 MG Acetaminophen 650 mg Q6HP PRN PO 05/08/25 10:30 Empaglifozin 10 mg DAILY PO 05/09/25 10:00 05/10/25 09:18 10 MG Enoxaparin Sodium 80 mg Q12HR SC 05/08/25 22:00 05/10/25 09:15 80 MG Hydralazine HCl 10 mg Q6HP PRN IV 05/08/25 12:30 Amiodarone HCl 250 ml @ 16.66 mls/ hr Q15H1M IV 05/09/25 21:30 05/09/25 21:49 16.66 MLS/HR Metoprolol Succinate 100 mg DAILY PO 05/10/25 10:00 05/10/25 09:17 100 MG Colchicine 0.6 mg Q12HR PO 05/10/25 10:00 05/10/25 09:18 0.6 MG Examination: LUNGS:Normal, CVS:Abnormal (A-fib with intermittent RVR up to 140s bpm), NEURO:Normal laboratory and microbiology Laboratory Tests 05/10/25 05:05 05/08/25 05:32 Test 05/10/25 05:05 Range/Units Serum Glucose 91 74-106 mg/dL Problem List/Assessment/Plan Problem List/Assessment/Plan Atrial fibrillation with rapid ventricular response (on Eliquis), uncontrolled rate Acute on chronic decompensated HFrEF, NYHA class III Biventricular heart failure ?Ischemic vs tachycardia-induced cardiomyopathy Pulmonary hypertension, severe degree, likely Class III Severe tricuspid valve regurgitation Moderate degree mitral valve regurgitation Hypertension Dyslipidemia COPD/Asthma Plan/Recommendations (Dr. Staton) * Transthoracic echocardiogram reveals an EF of 23%, RVSP 60 mmHg * Guideline directed medical therapy for CHF as tolerated * Preload and afterload reduction * Strict intake and output, daily weights, maintain fluid restriction and low-sodium diet * Therapeutic Lovenox while inpatient; transition back to [facility] prior to discharge * [id number] VASc score: 5 points, HAS-BLED score: 2 points * Rate control, load on digoxin therapy in addition to beta-lucie * Monitor and replete electrolytes as needed, keep potassium greater than four and magnesium greater than two * Close cardiac surveillance If no improvement in LVEF within 3-6 months of uninterrupted GDMT, the patient may qualify for an ICD implantation. Further recommendations per clinical course and progression. Thank you for allowing us to care for this patient. Please call with any questions or concerns. This medical document was created using an electronic medical record system with voice recognition software and computerized dictation system. Although this document has been carefully reviewed, there might still be some phonetic and typographical errors. Occasional wrong-word or ``sound-alike substitutions may have occurred due to the inherent limitations of voice recognition software. These areas are purely typographical due to imperfections of the software programs and do not reflect any compromise in the patient's medical care. Please read the chart carefully and recognize, using context, where these substitutions have occurred. Plan discussed with: Patient, Other Date of Service: May 10, 2025 Billing Provider: PAULA LIVE Cardiology Common Codes: [id number](High PAULA LIVE May 10, 2025 10:27
[2025-05-10] MEDS: MAGNESIUM SULFATE 1GM/100ML 100 ML IV ONE (10:30)
--- NOTE | 2025-05-10 10:36 | DVHPN2 ---
Subjective She is still complaining of right knee and right wrist pain X-ray showed no fractures but osteoarthritis Uric acid is high Changes from previous H/P or p: Changes Eyes: No Pain, No Vision change, No Conjunctivae inflammation, No Eyelid inflammation, No Other, No Redness ENT: No Ear pain, No Ear discharge, No Nose pain, No Nose discharge, No Nose congestion, No Mouth pain, No Mouth swelling, No Throat pain, No Throat swelling, No Other Cardiovascular: No Chest Pain; Palpitations; No Orthopnea, No Paroxysmal Noc. Dyspnea; Edema; No Lt Headedness, No Other Respiratory: No Cough, No Dry; Shortness of breath; No SOB with excertion, No Wheezing, No Hemoptysis, No Pleuritic Pain, No Sputum, No Other Gastrointestinal: No Nausea, No Vomiting, No Abdominal Pain, No Diarrhea, No Constipation, No Melena, No Hematochezia, No Other Genitourinary: No Dysuria, No Frequency, No Incontinence, No Hematuria, No Retention, No Other Musculoskeletal: No other, No neck pain, No shoulder pain, No arm pain, No back pain, No hand pain; leg pain, foot pain Skin: No Rash, No Lesions, No Jaundice, No Bruising, No Other Objective Vitals Vital Signs Date Time Temp Pulse Resp B/P (MAP) Pulse Ox O2 Delivery O2 Flow Rate FiO2 05/10/25 10:00 115 16 120/74 05/10/25 08:55 98.0 92 98.0 05/10/25 08:27 Room Air* 0 21 Intake/Output Intake and Output 05/10/25 07:00 Intake Total 1590 ml Output Total 1900 ml Balance -310 ml Intake Oral 1150 ml IV Total 440 ml Output Urine Total 1900 ml General Appearance: Alert, Oriented X3, moderate distress Lungs: Other (Bilateral rhonchi) Cardiovascular: Other (Irregularly irregular heart rate 100) Abdomen: Normal bowel sounds, Soft, No tenderness, No hepatospenomegaly Extremities: No edema Medications Current Medications Medications Dose Ordered Sig/Ziyad Route Start Time Stop Time Status Last Admin Dose Admin Pantoprazole Sodium 40 mg DAILY PO 05/08/25 10:00 05/10/25 09:18 40 MG Sacubitril/ Valsartan 1 tab BID PO 05/07/25 22:00 05/10/25 09:16 1 TAB Furosemide 40 mg BIDD IV 05/07/25 18:00 05/10/25 05:34 40 MG Albuterol 2.5 mg Q4HPRN PRN NEB 05/07/25 13:15 Ipratropium [place] 0.5 mg Q4HPRN PRN NEB 05/07/25 13:15 Atorvastatin Calcium 20 mg HS PO 05/07/25 22:00 05/09/25 21:49 20 MG Spironolactone 25 mg DAILY PO 05/08/25 10:00 05/10/25 09:16 25 MG Nitroglycerin 0.4 mg Q5MINP PRN SL 05/07/25 13:15 Morphine Sulfate 2 mg Q6HPRN PRN IV 05/07/25 18:15 UNV Morphine Sulfate 4 mg Q4HPRN PRN IV 05/08/25 10:30 05/10/25 10:00 4 MG Acetaminophen 650 mg Q6HP PRN PO 05/08/25 10:30 Empaglifozin 10 mg DAILY PO 05/09/25 10:00 05/10/25 09:18 10 MG Enoxaparin Sodium 80 mg Q12HR SC 05/08/25 22:00 05/10/25 09:15 80 MG Hydralazine HCl 10 mg Q6HP PRN IV 05/08/25 12:30 Amiodarone HCl 250 ml @ 16.66 mls/ hr Q15H1M IV 05/09/25 21:30 05/09/25 21:49 16.66 MLS/HR Metoprolol Succinate 100 mg DAILY PO 05/10/25 10:00 05/10/25 09:17 100 MG Colchicine 0.6 mg Q12HR PO 05/10/25 10:00 05/10/25 09:18 0.6 MG Laboratory Results Laboratory Tests 05/08/25 05:32 05/10/25 05:05 Chemistry Test 05/10/25 05:05 Calcium Level 9.0 mg/dL (8.7-10.4) Magnesium Level 2.1 mg/dL (1.6-2.6) Assessment/Plan Assessment/Plan Atrial fibrillation with a rapid ventricular response Acute on chronic congestive heart failure, systolic with reduced ejection fraction Acute hypoxic respiratory failure Pulmonary hypertension Hypertension Seizure disorder Left wrist and left foot injury, no fracture Generalized weakness 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 Hyper natremia Hypokalemia Plan Continue Eliquis Lasix IV Cardiology consult Echocardiogram showed ejection fraction 23% Metoprolol for rate control Replace potassium as needed Entresto Aldactone Lipitor Pain control morphine as needed 05/09/2025: Multiple joint pain rule out gout Check the uric acid level Hypomagnesemia: Replace Hypokalemia: Replace Lovenox Jardiance Lasix Metoprolol Entresto Aldactone Physical therapy 05/10/2025: Multiple joint pain most likely due to gout Osteoarthritis Generalized weakness Hypokalemia Start colchicine Physical therapy Paroxysmal atrial fibrillation: Still with rapid response, cardiology recommended digoxin, continue beta blockers and amiodarone,GDMT with Entresto and Aldactone and Lasix and beta blockers Plan discussed with: Patient My Orders Orders - KUSUM ALEX MD Procedure Category Date Status Time Pt Request For Service PT 05/09/25 Logged 11:44 Colchicine (Colcrys) PHA 05/10/25 In Process 10:00 Date of Service: May 10, 2025 Billing Provider: KUSUM ALEX MD Common Visit Codes: NOT BILLABLE KUSUM ALEX MD May 10, 2025 10:36
[2025-05-10] MEDS: DIGOXIN (250MCG/ML) 2 ML AMPULE IV ONE (11:50)
[2025-05-10] MEDS: ACETAMINOPHEN 325 MG TAB PO PRN (17:45)
--- NOTE | 2025-05-10 23:52 | DVHPN2 ---
Consult Progress Note Date Seen: May 10, 2025 Subjective Other Systems: Patient was seen and evaluated in follow up. Patient is on 1 LPM NC. Denies any cardiac symptoms. Patient c/o tenderness to movement and palpation to BLEs. Objective vital signs Vital Sign Date Time Temp Pulse Resp B/P (MAP) Pulse Ox O2 Delivery O2 Flow Rate FiO2 05/10/25 22:48 96 Nasal Cannula 1.0 05/10/25 22:48 24 05/10/25 22:08 82 22 107/70 (82) 05/10/25 21:00 98.1 98.1 Total Intake and Output 05/09/25 05/09/25 05/10/25 15:00 23:00 07:00 Intake Total 200 ml 400 ml 990 ml Output Total 650 ml 1250 ml Balance 200 ml -250 ml -260 ml medications Current Medications Medications Dose Ordered Sig/Ziyad Route Start Time Stop Time Status Last Admin Dose Admin Pantoprazole Sodium 40 mg DAILY PO 05/08/25 10:00 05/10/25 09:18 40 MG Sacubitril/ Valsartan 1 tab BID PO 05/07/25 22:00 05/10/25 22:06 1 TAB Furosemide 40 mg BIDD IV 05/07/25 18:00 05/10/25 17:16 40 MG Albuterol 2.5 mg Q4HPRN PRN NEB 05/07/25 13:15 Ipratropium [place] 0.5 mg Q4HPRN PRN NEB 05/07/25 13:15 Atorvastatin Calcium 20 mg HS PO 05/07/25 22:00 05/10/25 22:05 20 MG Spironolactone 25 mg DAILY PO 05/08/25 10:00 05/10/25 09:16 25 MG Nitroglycerin 0.4 mg Q5MINP PRN SL 05/07/25 13:15 Morphine Sulfate 2 mg Q6HPRN PRN IV 05/07/25 18:15 UNV Morphine Sulfate 4 mg Q4HPRN PRN IV 05/08/25 10:30 05/10/25 10:00 4 MG Acetaminophen 650 mg Q6HP PRN PO 05/08/25 10:30 05/10/25 17:45 650 MG Empaglifozin 10 mg DAILY PO 05/09/25 10:00 05/10/25 09:18 10 MG Enoxaparin Sodium 80 mg Q12HR SC 05/08/25 22:00 05/10/25 22:06 80 MG Hydralazine HCl 10 mg Q6HP PRN IV 05/08/25 12:30 Amiodarone HCl 250 ml @ 16.66 mls/ hr Q15H1M IV 05/09/25 21:30 05/10/25 17:12 16.66 MLS/HR Metoprolol Succinate 100 mg DAILY PO 05/10/25 10:00 05/10/25 09:17 100 MG Colchicine 0.6 mg Q12HR PO 05/10/25 10:00 05/10/25 22:05 0.6 MG Examination: GENERAL:Normal, HEENT:Normal, NECK:Normal, LUNGS:Normal, CVS:Abnormal (A-fib with intermittent RVR up to 140s bpm), SKIN:Normal, NEURO:Normal laboratory and microbiology Laboratory Tests 05/10/25 05:05 05/08/25 05:32 Test 05/10/25 05:05 Range/Units Serum Glucose 91 74-106 mg/dL Problem List/Assessment/Plan Problem List/Assessment/Plan Problem List Atrial fibrillation with a rapid ventricular response (on Eliquis). Acute on chronic decompensated HFrEF, NYHA class III. Associated right-sided heart failure. ?Ischemic vs tachycardia-induced cardiomyopathy. Severe tricuspid valve regurgitation. Moderate degree mitral valve regurgitation. Hypertension. Dyslipidemia. COPD. Severe pulmonary hypertension. Hypokalemia, resolved. Asthma. Seizure disorder. Plan/Recommendation Continued all current supportive medical care. Patient has been seen by Yasemin Martin NP on my behalf, her and I discussed the plan with the patient. Transthoracic echocardiogram reveals an EF of 23%, RVSP 60 mmHg. Initiate guideline directed medical therapy for CHF as tolerated. Switch metoprolol tartrate to metoprolol succinate as per GDMT guidelines. Strict intake and output, daily weights, maintain fluid restriction and low- sodium diet. Preload and afterload reduction. [id number] VASc score: 5 points, HAS-BLED score: 2 points. Beta-lucie for rate control. Therapeutic Lovenox while inpatient; transition back to Eliquis when appropriate. Loading dose digoxin therapy. Monitor and replete electrolytes as needed, keep potassium greater than four and magnesium greater than two. Close cardiac surveillance. The patient denies any previous ischemic workup. While at bedside, the patient is complaining of excruciating pain to her right wrist along with pain in her bilateral legs. I assessed the patient who was not able to lie in a flat position at this time due to excruciating pain. We may consider ischemic workup in the future when patient is able to lie flat for coronary angiogram. In the meantime, continue with medical management. Continue with guideline directed medical therapy for CHF. The patient was educated on the need to stay compliant on her heart failure medications. If no improvement in EF within 3-6 months on uninterrupted GDMT, the patient may qualify for ICD implantation. Further recommendations per clinical course and progression. Additional plan as per the hospital course. Plan discussed with: Patient Date of Service: May 10, 2025 Billing Provider: TOVA DUTTON MD Cardiology Common Codes: [id number] [facility](High TOVA DUTTON MD May 10, 2025 23:51
[2025-05-11] VITALS (11 sets, daily range): BP systolic 93–124; BP diastolic 66–80; PULSE 68–101; RESP 14–17; TEMP 97.3–98.5; O2SAT 93–98
[2025-05-11 07:14] LABS: Chloride 98 mmol/L (98-107); Potassium 3.6 mmol/L (3.5-5.1)
[2025-05-11 07:15] LABS: Anion Gap 14 (5-15); Calcium 9.2 mg/dL (8.7-10.4); Carbon Dioxide 24 mmol/L (20-31)
[2025-05-11 07:16] LABS: Sodium 136 mmol/L (136-145)
[2025-05-11 07:20] LABS: BUN/Creatinine Ratio 21.5 (10.0-20.0); Blood Urea Nitrogen 17 mg/dL (9-23); Glucose 85 mg/dL (74-106)
[2025-05-11 07:21] LABS: Magnesium 2.2 mg/dL (1.6-2.6)
--- NOTE | 2025-05-11 07:32 | ECG ---
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
[2025-05-11] MEDS: HYDROcodone-ACET 5/325MG TAB PO PRN (09:08)
--- NOTE | 2025-05-11 09:22 | DVHPN2 ---
Subjective The pain is somewhat better She is still complaining of pain in her right knee and right ankle and right hand She was started on colchicine yesterday Heart rate is better controlled, she is still in AFib Changes from previous H/P or p: Changes Eyes: No Pain, No Vision change, No Conjunctivae inflammation, No Eyelid inflammation, No Other, No Redness ENT: No Ear pain, No Ear discharge, No Nose pain, No Nose discharge, No Nose congestion, No Mouth pain, No Mouth swelling, No Throat pain, No Throat swelling, No Other Cardiovascular: No Chest Pain; Palpitations; No Orthopnea, No Paroxysmal Noc. Dyspnea; Edema; No Lt Headedness, No Other Respiratory: No Cough, No Dry; Shortness of breath; No SOB with excertion, No Wheezing, No Hemoptysis, No Pleuritic Pain, No Sputum, No Other Gastrointestinal: No Nausea, No Vomiting, No Abdominal Pain, No Diarrhea, No Constipation, No Melena, No Hematochezia, No Other Genitourinary: No Dysuria, No Frequency, No Incontinence, No Hematuria, No Retention, No Other Musculoskeletal: No other, No neck pain, No shoulder pain, No arm pain, No back pain, No hand pain; leg pain, foot pain Skin: No Rash, No Lesions, No Jaundice, No Bruising, No Other Objective Vitals Vital Signs Date Time Temp Pulse Resp B/P (MAP) Pulse Ox O2 Delivery O2 Flow Rate FiO2 05/11/25 09:16 107/75 05/11/25 09:08 79 05/11/25 08:47 97.8 17 96 97.8 05/11/25 07:25 Room Air* 0 21 Intake/Output Intake and Output 05/11/25 07:00 Intake Total 800 ml Output Total 1400 ml Balance -600 ml Intake Oral 700 ml IV Total 100 ml Output Urine Total 1400 ml Stool Total 0 ml General Appearance: Alert, Oriented X3, moderate distress Lungs: Other (Bilateral rhonchi) Cardiovascular: Other (Irregularly irregular heart rate 100) Abdomen: Normal bowel sounds, Soft, No tenderness, No hepatospenomegaly Extremities: No edema Medications Current Medications Medications Dose Ordered Sig/Ziyad Route Start Time Stop Time Status Last Admin Dose Admin Pantoprazole Sodium 40 mg DAILY PO 05/08/25 10:00 05/11/25 09:08 40 MG Sacubitril/ Valsartan 1 tab BID PO 05/07/25 22:00 05/11/25 09:08 1 TAB Furosemide 40 mg BIDD IV 05/07/25 18:00 05/11/25 09:16 40 MG Albuterol 2.5 mg Q4HPRN PRN NEB 05/07/25 13:15 Ipratropium [place] 0.5 mg Q4HPRN PRN NEB 05/07/25 13:15 Atorvastatin Calcium 20 mg HS PO 05/07/25 22:00 05/10/25 22:05 20 MG Spironolactone 25 mg DAILY PO 05/08/25 10:00 05/11/25 09:08 25 MG Nitroglycerin 0.4 mg Q5MINP PRN SL 05/07/25 13:15 Morphine Sulfate 2 mg Q6HPRN PRN IV 05/07/25 18:15 UNV Morphine Sulfate 4 mg Q4HPRN PRN IV 05/08/25 10:30 05/10/25 10:00 4 MG Acetaminophen 650 mg Q6HP PRN PO 05/08/25 10:30 05/11/25 04:53 650 MG Empaglifozin 10 mg DAILY PO 05/09/25 10:00 05/11/25 09:08 10 MG Enoxaparin Sodium 80 mg Q12HR SC 05/08/25 22:00 05/11/25 09:09 80 MG Hydralazine HCl 10 mg Q6HP PRN IV 05/08/25 12:30 Amiodarone HCl 250 ml @ 16.66 mls/ hr Q15H1M IV 05/09/25 21:30 05/11/25 09:07 16.66 MLS/HR Metoprolol Succinate 100 mg DAILY PO 05/10/25 10:00 05/11/25 09:08 100 MG Colchicine 0.6 mg Q12HR PO 05/10/25 10:00 05/11/25 09:07 0.6 MG Acetaminophen/ Hydrocodone Bitart 1 tab Q6HPRN PRN PO 05/11/25 08:45 05/11/25 09:08 1 TAB Laboratory Results Laboratory Tests 05/08/25 05:32 05/11/25 06:00 Chemistry Test 05/11/25 06:00 Calcium Level 9.2 mg/dL (8.7-10.4) Magnesium Level 2.2 mg/dL (1.6-2.6) Assessment/Plan Assessment/Plan Atrial fibrillation with a rapid ventricular response Acute on chronic congestive heart failure, systolic with reduced ejection fraction Acute hypoxic respiratory failure Pulmonary hypertension Hypertension Seizure disorder Left wrist and left foot injury, no fracture Generalized weakness 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 Hyper natremia Hypokalemia Plan Continue Eliquis Lasix IV Cardiology consult Echocardiogram showed ejection fraction 23% Metoprolol for rate control Replace potassium as needed Entresto Aldactone Lipitor Pain control morphine as needed 05/09/2025: Multiple joint pain rule out gout Check the uric acid level Hypomagnesemia: Replace Hypokalemia: Replace Lovenox Jardiance Lasix Metoprolol Entresto Aldactone Physical therapy 05/10/2025: Multiple joint pain most likely due to gout Osteoarthritis Generalized weakness Hypokalemia Start colchicine Physical therapy Paroxysmal atrial fibrillation: Still with rapid response, cardiology recommended digoxin, continue beta blockers and amiodarone,GDMT with Entresto and Aldactone and Lasix and beta blockers 05/11/2025: Atrial fibrillation: Change amiodarone to p.o., Metoprolol, Lovenox Heart failure: Entresto, Lasix, Aldactone, Jardiance Gout: Colchicine Weakness: Physical therapy Plan discussed with: Patient My Orders Orders - KUSUM ALEX MD Procedure Category Date Status Time Hydrocodone-Acet PHA 05/11/25 In Process 5/325mg Tab ([place] 08:45 Date of Service: May 11, 2025 Billing Provider: KUSUM ALEX MD Common Visit Codes: NOT BILLABLE KUSUM ALEX MD May 11, 2025 09:22
--- NOTE | 2025-05-11 10:08 | DVHPN2 ---
Consult Progress Note Date Seen: May 11, 2025 Subjective Review of Systems: CVS:Normal, RESPIRATORY:Normal, NEURO:Normal Objective vital signs Vital Sign Date Time Temp Pulse Resp B/P (MAP) Pulse Ox O2 Delivery O2 Flow Rate FiO2 05/11/25 09:16 107/75 05/11/25 09:08 79 05/11/25 08:47 97.8 17 96 97.8 05/11/25 07:25 Room Air* 0 21 Total Intake and Output 05/10/25 05/10/25 05/11/25 15:00 23:00 07:00 Intake Total 100 ml 450 ml 250 ml Output Total 650 ml 750 ml Balance 100 ml -200 ml -500 ml medications Current Medications Medications Dose Ordered Sig/Ziyad Route Start Time Stop Time Status Last Admin Dose Admin Pantoprazole Sodium 40 mg DAILY PO 05/08/25 10:00 05/11/25 09:08 40 MG Sacubitril/ Valsartan 1 tab BID PO 05/07/25 22:00 05/11/25 09:08 1 TAB Furosemide 40 mg BIDD IV 05/07/25 18:00 05/11/25 09:16 40 MG Albuterol 2.5 mg Q4HPRN PRN NEB 05/07/25 13:15 Ipratropium [place] 0.5 mg Q4HPRN PRN NEB 05/07/25 13:15 Atorvastatin Calcium 20 mg HS PO 05/07/25 22:00 05/10/25 22:05 20 MG Spironolactone 25 mg DAILY PO 05/08/25 10:00 05/11/25 09:08 25 MG Nitroglycerin 0.4 mg Q5MINP PRN SL 05/07/25 13:15 Morphine Sulfate 2 mg Q6HPRN PRN IV 05/07/25 18:15 UNV Morphine Sulfate 4 mg Q4HPRN PRN IV 05/08/25 10:30 05/10/25 10:00 4 MG Acetaminophen 650 mg Q6HP PRN PO 05/08/25 10:30 05/11/25 04:53 650 MG Empaglifozin 10 mg DAILY PO 05/09/25 10:00 05/11/25 09:08 10 MG Enoxaparin Sodium 80 mg Q12HR SC 05/08/25 22:00 05/11/25 09:09 80 MG Hydralazine HCl 10 mg Q6HP PRN IV 05/08/25 12:30 Metoprolol Succinate 100 mg DAILY PO 05/10/25 10:00 05/11/25 09:08 100 MG Colchicine 0.6 mg Q12HR PO 05/10/25 10:00 05/11/25 09:07 0.6 MG Acetaminophen/ Hydrocodone Bitart 1 tab Q6HPRN PRN PO 05/11/25 08:45 05/11/25 09:08 1 TAB Amiodarone HCl 200 mg Q12HR PO 05/11/25 10:00 Examination: LUNGS:Normal, CVS:Normal (A-fib, controlled rate. No further RVR events overnight), NEURO:Normal laboratory and microbiology Laboratory Tests 05/11/25 06:00 05/08/25 05:32 Test 05/11/25 06:00 Range/Units Serum Glucose 85 74-106 mg/dL Problem List/Assessment/Plan Problem List/Assessment/Plan Atrial fibrillation with rapid ventricular response (on Eliquis), controlled rate Acute on chronic decompensated HFrEF, NYHA class III Biventricular heart failure ?Ischemic vs tachycardia-induced cardiomyopathy Pulmonary hypertension, severe degree, likely Class III Severe tricuspid valve regurgitation Moderate degree mitral valve regurgitation Hypertension Dyslipidemia COPD/Asthma Plan/Recommendations (Dr. Staton) * Transthoracic echocardiogram reveals an EF of 23%, RVSP 60 mmHg * Guideline directed medical therapy for CHF as tolerated * Preload and afterload reduction * Strict intake and output, daily weights, maintain fluid restriction and low-sodium diet * Therapeutic Lovenox while inpatient; transition back to [facility] prior to discharge * [id number] VASc score: 5 points, HAS-BLED score: 2 points * Rate control, continue beta-lucie * Monitor and replete electrolytes as needed, K>4 and Mg>2 If no improvement in LVEF within 3-6 months of uninterrupted GDMT, the patient may qualify for an ICD implantation. Rate controlled, cardiac stable. Follow- up with primary channeler insole within 3-4 weeks post-discharge. There is no further cardiac work-up indicated at this time. Kindly call if in need of further recommendations. Thank you for allowing us to care for this patient. Please call with any questions or concerns. This medical document was created using an electronic medical record system with voice recognition software and computerized dictation system. Although this document has been carefully reviewed, there might still be some phonetic and typographical errors. Occasional wrong-word or ``sound-alike substitutions may have occurred due to the inherent limitations of voice recognition software. These areas are purely typographical due to imperfections of the software programs and do not reflect any compromise in the patient's medical care. Please read the chart carefully and recognize, using context, where these substitutions have occurred. Plan discussed with: Patient, Other Date of Service: May 11, 2025 Billing Provider: PAULA LIVE Cardiology Common Codes: [id number] [facility]OSP CARE(High PAULA LIVE May 11, 2025 10:08
[2025-05-11] MEDS: POTASSIUM CHL 20 Meq TABLET PO ONE (12:03)
[2025-05-11] MEDS: AMIODARONE HCL 200 MG TAB PO SCH (12:06)
--- NOTE | 2025-05-11 23:39 | DVHPN2 ---
Consult Progress Note Date Seen: May 11, 2025 Subjective Review of Systems: CVS:Normal, RESPIRATORY:Normal, NEURO:Normal Other Systems: Patient was seen and evaluated in follow up. Patient is complaining of pain in her right knee and right ankle and right hand. She was started on colchicine yesterday. Heart rate is better controlled, she is still in AFib. Telemetry reviewed. Objective vital signs Vital Sign Date Time Temp Pulse Resp B/P (MAP) Pulse Ox O2 Delivery O2 Flow Rate FiO2 05/11/25 10:22 97 Room Air* 0 21 05/11/25 09:16 107/75 05/11/25 09:08 79 05/11/25 08:47 97.8 17 97.8 Total Intake and Output 05/10/25 05/10/25 05/11/25 15:00 23:00 07:00 Intake Total 100 ml 450 ml 250 ml Output Total 650 ml 750 ml Balance 100 ml -200 ml -500 ml medications Current Medications Medications Dose Ordered Sig/Ziyad Route Start Time Stop Time Status Last Admin Dose Admin Pantoprazole Sodium 40 mg DAILY PO 05/08/25 10:00 05/11/25 09:08 40 MG Sacubitril/ Valsartan 1 tab BID PO 05/07/25 22:00 05/11/25 09:08 1 TAB Albuterol 2.5 mg Q4HPRN PRN NEB 05/07/25 13:15 Ipratropium [place] 0.5 mg Q4HPRN PRN NEB 05/07/25 13:15 Atorvastatin Calcium 20 mg HS PO 05/07/25 22:00 05/10/25 22:05 20 MG Spironolactone 25 mg DAILY PO 05/08/25 10:00 05/11/25 09:08 25 MG Nitroglycerin 0.4 mg Q5MINP PRN SL 05/07/25 13:15 Morphine Sulfate 2 mg Q6HPRN PRN IV 05/07/25 18:15 UNV Morphine Sulfate 4 mg Q4HPRN PRN IV 05/08/25 10:30 05/10/25 10:00 4 MG Acetaminophen 650 mg Q6HP PRN PO 05/08/25 10:30 05/11/25 04:53 650 MG Empaglifozin 10 mg DAILY PO 05/09/25 10:00 05/11/25 09:08 10 MG Enoxaparin Sodium 80 mg Q12HR SC 05/08/25 22:00 05/11/25 09:09 80 MG Hydralazine HCl 10 mg Q6HP PRN IV 05/08/25 12:30 Metoprolol Succinate 100 mg DAILY PO 05/10/25 10:00 05/11/25 09:08 100 MG Colchicine 0.6 mg Q12HR PO 05/10/25 10:00 05/11/25 09:07 0.6 MG Acetaminophen/ Hydrocodone Bitart 1 tab Q6HPRN PRN PO 05/11/25 08:45 05/11/25 09:08 1 TAB Amiodarone HCl 200 mg Q12HR PO 05/11/25 10:00 05/11/25 12:06 200 MG Furosemide 40 mg DAILY IV 05/12/25 10:00 Examination: GENERAL:Normal, HEENT:Normal, NECK:Normal, LUNGS:Normal, CVS:Normal (A-fib, controlled rate. No further RVR events overnight), ABDOMEN:Normal, SKIN:Normal, NEURO:Normal laboratory and microbiology Laboratory Tests 05/11/25 06:00 05/08/25 05:32 Test 05/11/25 06:00 Range/Units Serum Glucose 85 74-106 mg/dL Problem List/Assessment/Plan Problem List/Assessment/Plan Problem List Atrial fibrillation with rapid ventricular response (on Eliquis), controlled rate. Acute on chronic decompensated HFrEF, NYHA class III. Biventricular heart failure. ?Ischemic vs tachycardia-induced cardiomyopathy. Pulmonary hypertension, severe degree, likely Class III. Severe tricuspid valve regurgitation. Moderate degree mitral valve regurgitation. Hypertension. Dyslipidemia. COPD/Asthma. Plan/Recommendation Continued all current supportive medical care. Patient has been seen by Yasemin Martin NP on my behalf, her and I discussed the plan with the patient. Transthoracic echocardiogram reveals an EF of 23%, RVSP 60 mmHg. Guideline directed medical therapy for CHF as tolerated. Preload and afterload reduction. Strict intake and output, daily weights, maintain fluid restriction and low- sodium diet. Therapeutic Lovenox while inpatient; transition back to [facility] prior to discharge. [id number] VASc score: 5 points, HAS-BLED score: 2 points. Rate control, continue beta-lucie. Monitor and replete electrolytes as needed, K>4 and Mg>2. If no improvement in LVEF within 3-6 months of uninterrupted GDMT, the patient may qualify for an ICD implantation. Rate controlled, cardiac stable. Follow-up with primary certified novell administrator within 3-4 weeks post-discharge. There is no further cardiac work-up indicated at this time. Additional plan as per the hospital course. Plan discussed with: Patient Date of Service: May 11, 2025 Billing Provider: TOVA DUTTON MD Cardiology Common Codes: [id number] [facility](High TOVA DUTTON MD May 11, 2025 13:30
[2025-05-12] VITALS (10 sets, daily range): BP systolic 90–119; BP diastolic 59–76; PULSE 66–89; RESP 16–18; TEMP 97.4–97.8; O2SAT 94–100
[2025-05-12 07:06] LABS: Anion Gap 12 (5-15); Carbon Dioxide 24 mmol/L (20-31); Chloride 101 mmol/L (98-107); Potassium 3.9 mmol/L (3.5-5.1); Sodium 137 mmol/L (136-145)
[2025-05-12 07:07] LABS: Calcium 9.3 mg/dL (8.7-10.4)
[2025-05-12 07:12] LABS: Glucose 81 mg/dL (74-106)
[2025-05-12 07:13] LABS: BUN/Creatinine Ratio 26.6 (10.0-20.0); Blood Urea Nitrogen 21 mg/dL (9-23); Magnesium 2.2 mg/dL (1.6-2.6)
[2025-05-12] MEDS: FUROSEMIDE 40 MG/4 ML VIAL IV SCH (08:25)
--- NOTE | 2025-05-12 12:10 | DVH ---
EXAM: XY R KNEE 2V XRAY CLINICAL INDICATION: knee pain TECHNIQUE: XY R KNEE 2V XRAY COMPARISON: None FINDINGS/IMPRESSION: There is no evidence of acute fracture or dislocation. Moderate right knee osteoarthritis. The alignment is anatomical. There is no radiopaque foreign body.
--- NOTE | 2025-05-12 14:21 | DVHPN2 ---
Subjective Her pain is better however her right knee is not getting better, more swollen, more painful Heart rate is controlled Changes from previous H/P or p: Changes Eyes: No Pain, No Vision change, No Conjunctivae inflammation, No Eyelid inflammation, No Other, No Redness ENT: No Ear pain, No Ear discharge, No Nose pain, No Nose discharge, No Nose congestion, No Mouth pain, No Mouth swelling, No Throat pain, No Throat swelling, No Other Cardiovascular: No Chest Pain; Palpitations; No Orthopnea, No Paroxysmal Noc. Dyspnea; Edema; No Lt Headedness, No Other Respiratory: No Cough, No Dry; Shortness of breath; No SOB with excertion, No Wheezing, No Hemoptysis, No Pleuritic Pain, No Sputum, No Other Gastrointestinal: No Nausea, No Vomiting, No Abdominal Pain, No Diarrhea, No Constipation, No Melena, No Hematochezia, No Other Genitourinary: No Dysuria, No Frequency, No Incontinence, No Hematuria, No Retention, No Other Musculoskeletal: No other, No neck pain, No shoulder pain, No arm pain, No back pain, No hand pain; leg pain, foot pain Skin: No Rash, No Lesions, No Jaundice, No Bruising, No Other Objective Vitals Vital Signs Date Time Temp Pulse Resp B/P (MAP) Pulse Ox O2 Delivery O2 Flow Rate FiO2 05/12/25 10:13 95 Room Air* 0 21 05/12/25 09:00 97.6 82 18 107/76 (86) 97.6 Intake/Output Intake and Output 05/12/25 07:00 Intake Total 810 ml Output Total 1700 ml Balance -890 ml Intake Oral 810 ml Output Urine Total 1700 ml # Bowel Movements 1 General Appearance: Alert, Oriented X3, moderate distress Lungs: Other (Bilateral rhonchi) Cardiovascular: Other (Irregularly irregular heart rate 100) Abdomen: Normal bowel sounds, Soft, No tenderness, No hepatospenomegaly Extremities: No edema Medications Current Medications Medications Dose Ordered Sig/Ziyad Route Start Time Stop Time Status Last Admin Dose Admin Pantoprazole Sodium 40 mg DAILY PO 05/08/25 10:00 05/12/25 08:24 40 MG Sacubitril/ Valsartan 1 tab BID PO 05/07/25 22:00 05/12/25 08:24 1 TAB Albuterol 2.5 mg Q4HPRN PRN NEB 05/07/25 13:15 Ipratropium [place] 0.5 mg Q4HPRN PRN NEB 05/07/25 13:15 Atorvastatin Calcium 20 mg HS PO 05/07/25 22:00 05/11/25 21:43 20 MG Spironolactone 25 mg DAILY PO 05/08/25 10:00 05/12/25 08:25 25 MG Nitroglycerin 0.4 mg Q5MINP PRN SL 05/07/25 13:15 Morphine Sulfate 2 mg Q6HPRN PRN IV 05/07/25 18:15 UNV Morphine Sulfate 4 mg Q4HPRN PRN IV 05/08/25 10:30 05/10/25 10:00 4 MG Acetaminophen 650 mg Q6HP PRN PO 05/08/25 10:30 05/11/25 04:53 650 MG Empaglifozin 10 mg DAILY PO 05/09/25 10:00 05/12/25 08:24 10 MG Enoxaparin Sodium 80 mg Q12HR SC 05/08/25 22:00 05/12/25 08:24 80 MG Hydralazine HCl 10 mg Q6HP PRN IV 05/08/25 12:30 Metoprolol Succinate 100 mg DAILY PO 05/10/25 10:00 05/12/25 08:25 100 MG Colchicine 0.6 mg Q12HR PO 05/10/25 10:00 05/12/25 08:24 0.6 MG Acetaminophen/ Hydrocodone Bitart 1 tab Q6HPRN PRN PO 05/11/25 08:45 05/12/25 08:24 1 TAB Amiodarone HCl 200 mg Q12HR PO 05/11/25 10:00 05/12/25 08:24 200 MG Furosemide 40 mg DAILY IV 05/12/25 10:00 05/12/25 08:25 40 MG Laboratory Results Laboratory Tests 05/08/25 05:32 05/12/25 05:57 Chemistry Test 05/12/25 05:57 Calcium Level 9.3 mg/dL (8.7-10.4) Magnesium Level 2.2 mg/dL (1.6-2.6) Assessment/Plan Assessment/Plan Atrial fibrillation with a rapid ventricular response Acute on chronic congestive heart failure, systolic with reduced ejection fraction Acute hypoxic respiratory failure Pulmonary hypertension Hypertension Seizure disorder Left wrist and left foot injury, no fracture Generalized weakness 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 Hyper natremia Hypokalemia Plan Continue Eliquis Lasix IV Cardiology consult Echocardiogram showed ejection fraction 23% Metoprolol for rate control Replace potassium as needed Entresto Aldactone Lipitor Pain control morphine as needed 05/09/2025: Multiple joint pain rule out gout Check the uric acid level Hypomagnesemia: Replace Hypokalemia: Replace Lovenox Jardiance Lasix Metoprolol Entresto Aldactone Physical therapy 05/10/2025: Multiple joint pain most likely due to gout Osteoarthritis Generalized weakness Hypokalemia Start colchicine Physical therapy Paroxysmal atrial fibrillation: Still with rapid response, cardiology recommended digoxin, continue beta blockers and amiodarone,GDMT with Entresto and Aldactone and Lasix and beta blockers 05/11/2025: Atrial fibrillation: Change amiodarone to p.o., Metoprolol, Lovenox Heart failure: Entresto, Lasix, Aldactone, Jardiance Gout: Colchicine Weakness: Physical therapy 05/12/2025: Atrial fibrillation: Rate is controlled Heart failure: Continue current management Gout: Continue colchicine Right knee effusion: Aspirate the knee Monitor closely Plan discussed with: Patient My Orders Orders - KUSUM ALEX MD Procedure Category Date Status Time R Knee 2v Xray XY 05/12/25 Resulted 10:12 Date of Service: May 12, 2025 Billing Provider: KUSUM ALEX MD Common Visit Codes: NOT BILLABLE KUSUM ALEX MD May 12, 2025 14:21
[2025-05-12] MEDS: LIDOCAINE HCL 2 %PF INJ 10ML AMP IJ ONE (15:36)
--- NOTE | 2025-05-12 15:48 | DVHNC2 ---
Arthrocentesis Indication: Diagnostic Evaluation Procedure: Sterile Preparation, Needle Injected into the joint: Lidocaine Location: Right Knee Fluid: Amount (20 ml), Clear, Yellow Informed consent obtained: Yes Risks/benefits/alt described: Yes Notes Right knee was prepared and sterilized with Betadine and alcohol 2% lidocaine was used to numb the medial aspect of the knee joint 18 gauge needle was inserted into the joint using a medial approach and 20 cc of yellow clear synovial fluid was aspirated and sent to the lab The patient tolerated the procedure well with no complications, no bleeding Estimated blood loss less than 1 ml Date of Service: May 12, 2025 Billing Provider: KUSUM ALEX MD Common Visit Codes: PROCEDURE ONLY KUSUM ALEX MD May 12, 2025 15:48
[2025-05-13] VITALS (11 sets, daily range): BP systolic 108–120; BP diastolic 63–87; PULSE 63–77; RESP 16–18; TEMP 96.9–97.7; O2SAT 93–100
--- NOTE | 2025-05-13 04:25 | DVHPN2 ---
Progress Note - Dictate Date Seen: May 12, 2025 Medical Necessity Reason Pt with a Central, PICC or Fol: No Subjective Patient was seen and evaluated in follow up. Patient c/o worsening right knee pain. Heart rate is controlled at this time. Approx 20 cc of yellow clear synovial fluid was aspirated from the right knee and sent to the lab. Telemetry reviewed. vital signs Vital Sign Date Time Temp Pulse Resp B/P (MAP) Pulse Ox O2 Delivery O2 Flow Rate FiO2 05/12/25 17:00 97.8 71 18 119/74 (89) 98 97.8 05/12/25 10:13 Room Air* 0 21 Total Intake and Output 05/11/25 05/11/25 05/12/25 15:00 23:00 07:00 Intake Total 550 ml 260 ml Output Total 1400 ml 300 ml Balance -850 ml -40 ml medications Current Medications Medications Dose Ordered Sig/Ziyad Route Start Time Stop Time Status Last Admin Dose Admin Pantoprazole Sodium 40 mg DAILY PO 05/08/25 10:00 05/12/25 08:24 40 MG Sacubitril/ Valsartan 1 tab BID PO 05/07/25 22:00 05/12/25 08:24 1 TAB Albuterol 2.5 mg Q4HPRN PRN NEB 05/07/25 13:15 Ipratropium [place] 0.5 mg Q4HPRN PRN NEB 05/07/25 13:15 Atorvastatin Calcium 20 mg HS PO 05/07/25 22:00 05/11/25 21:43 20 MG Spironolactone 25 mg DAILY PO 05/08/25 10:00 05/12/25 08:25 25 MG Nitroglycerin 0.4 mg Q5MINP PRN SL 05/07/25 13:15 Morphine Sulfate 2 mg Q6HPRN PRN IV 05/07/25 18:15 UNV Morphine Sulfate 4 mg Q4HPRN PRN IV 05/08/25 10:30 05/10/25 10:00 4 MG Acetaminophen 650 mg Q6HP PRN PO 05/08/25 10:30 05/11/25 04:53 650 MG Empaglifozin 10 mg DAILY PO 05/09/25 10:00 05/12/25 08:24 10 MG Enoxaparin Sodium 80 mg Q12HR SC 05/08/25 22:00 05/12/25 08:24 80 MG Hydralazine HCl 10 mg Q6HP PRN IV 05/08/25 12:30 Metoprolol Succinate 100 mg DAILY PO 05/10/25 10:00 05/12/25 08:25 100 MG Colchicine 0.6 mg Q12HR PO 05/10/25 10:00 05/12/25 08:24 0.6 MG Acetaminophen/ Hydrocodone Bitart 1 tab Q6HPRN PRN PO 05/11/25 08:45 05/12/25 15:39 1 TAB Amiodarone HCl 200 mg Q12HR PO 05/11/25 10:00 05/12/25 08:24 200 MG Furosemide 40 mg DAILY IV 05/12/25 10:00 05/12/25 08:25 40 MG objective GENERAL: Alert and oriented x 3. No acute distress. EYES: PERRL, EOMI. Anicteric. HENT: Moist mucous membranes. LUNGS: Clear to auscultation bilaterally. CARDIOVASCULAR: Irregular rate and rhythm. ABDOMEN: Soft, nontender and nondistended. EXTREMITIES: No edema. NEUROLOGIC: No focal neurological deficits. SKIN: Warm, dry. laboratory and microbiology Laboratory Tests 05/12/25 05:57 05/08/25 05:32 Test 05/12/25 05:57 Range/Units Serum Glucose 81 74-106 mg/dL Problem List Atrial fibrillation with rapid ventricular response (on Eliquis), controlled rate. Acute on chronic decompensated HFrEF, NYHA class III. Biventricular heart failure. ?Ischemic vs tachycardia-induced cardiomyopathy. Pulmonary hypertension, severe degree, likely Class III. Severe tricuspid valve regurgitation. Moderate degree mitral valve regurgitation. Hypertension. Dyslipidemia. COPD/Asthma. Assessment/Plan Continued all current supportive medical care. Morphine and [place] for pain management. Amiodarone. Lipitor, Metoprolol. DVT and GI prophylactics. Diuretics with Lasix. IV Hydralazine for SBP >150. Entresto. Additional plan as per the hospital course. Plan discussed with: Patient TOVA DUTTON MD May 12, 2025 19:05
[2025-05-13 06:41] LABS: Hematocrit 43.1 % (36.0-46.0); Hemoglobin 13.9 g/dL (12.2-16.2); Mean Corpuscular Hemoglobin 23.1 pg (28.0-32.0); Mean Corpuscular Volume 71.8 fL (80.0-100.0); Nucleated Red Blood Cells % 0.2 %
[2025-05-13 06:56] LABS: Alanine Aminotransferase 11 U/L (7-40); Anion Gap 12 (5-15); BUN/Creatinine Ratio 32.9 (10.0-20.0); Calcium 9.4 mg/dL (8.7-10.4); Carbon Dioxide 24 mmol/L (20-31); Chloride 101 mmol/L (98-107); Glucose 82 mg/dL (74-106); Magnesium 2.4 mg/dL (1.6-2.6); Potassium 3.9 mmol/L (3.5-5.1); Sodium 137 mmol/L (136-145); Total Protein 7.5 g/dL (5.7-8.2)
[2025-05-13 06:58] LABS: Albumin 3.9 g/dL (3.2-4.8); Alkaline Phosphatase 189 U/L (46-116); Bilirubin, Total 0.6 mg/dL (0.2-1.0); Blood Urea Nitrogen 26 mg/dL (9-23)
--- NOTE | 2025-05-13 09:48 | DVHPN2 ---
Subjective The pain is somewhat better She is still having some pain in the right ankle but mostly in the right knee Synovial fluid analysis from the right knee showed gout Changes from previous H/P or p: Changes Eyes: No Pain, No Vision change, No Conjunctivae inflammation, No Eyelid inflammation, No Other, No Redness ENT: No Ear pain, No Ear discharge, No Nose pain, No Nose discharge, No Nose congestion, No Mouth pain, No Mouth swelling, No Throat pain, No Throat swelling, No Other Cardiovascular: No Chest Pain; Palpitations; No Orthopnea, No Paroxysmal Noc. Dyspnea; Edema; No Lt Headedness, No Other Respiratory: No Cough, No Dry; Shortness of breath; No SOB with excertion, No Wheezing, No Hemoptysis, No Pleuritic Pain, No Sputum, No Other Gastrointestinal: No Nausea, No Vomiting, No Abdominal Pain, No Diarrhea, No Constipation, No Melena, No Hematochezia, No Other Genitourinary: No Dysuria, No Frequency, No Incontinence, No Hematuria, No Retention, No Other Musculoskeletal: No other, No neck pain, No shoulder pain, No arm pain, No back pain, No hand pain; leg pain, foot pain Skin: No Rash, No Lesions, No Jaundice, No Bruising, No Other Objective Vitals Vital Signs Date Time Temp Pulse Resp B/P (MAP) Pulse Ox O2 Delivery O2 Flow Rate FiO2 05/13/25 06:12 73 16 104/66 05/13/25 05:00 97.5 93 97.5 05/12/25 20:00 Room Air* 0 21 Intake/Output Intake and Output 05/13/25 07:00 Intake Total 250 ml Output Total 200 ml Balance 50 ml Intake Oral 250 ml Output Urine Total 200 ml General Appearance: Alert, Oriented X3, moderate distress Lungs: Other (Bilateral rhonchi) Cardiovascular: Other (Irregularly irregular heart rate 100) Abdomen: Normal bowel sounds, Soft, No tenderness, No hepatospenomegaly Extremities: No edema Medications Current Medications Medications Dose Ordered Sig/Ziyad Route Start Time Stop Time Status Last Admin Dose Admin Pantoprazole Sodium 40 mg DAILY PO 05/08/25 10:00 05/12/25 08:24 40 MG Sacubitril/ Valsartan 1 tab BID PO 05/07/25 22:00 05/12/25 21:03 1 TAB Albuterol 2.5 mg Q4HPRN PRN NEB 05/07/25 13:[address] [place] 0.5 mg Q4HPRN PRN NEB 05/07/25 13:15 Atorvastatin Calcium 20 mg HS PO 05/07/25 22:00 05/12/25 21:03 20 MG Spironolactone 25 mg DAILY PO 05/08/25 10:00 05/12/25 08:25 25 MG Nitroglycerin 0.4 mg Q5MINP PRN SL 05/07/25 13:15 Morphine Sulfate 2 mg Q6HPRN PRN IV 05/07/25 18:15 UNV Morphine Sulfate 4 mg Q4HPRN PRN IV 05/08/25 10:30 05/13/25 05:42 4 MG Acetaminophen 650 mg Q6HP PRN PO 05/08/25 10:30 05/11/25 04:53 650 MG Empaglifozin 10 mg DAILY PO 05/09/25 10:00 05/12/25 08:24 10 MG Enoxaparin Sodium 80 mg Q12HR SC 05/08/25 22:00 05/12/25 21:04 80 MG Hydralazine HCl 10 mg Q6HP PRN IV 05/08/25 12:30 Metoprolol Succinate 100 mg DAILY PO 05/10/25 10:00 05/12/25 08:25 100 MG Colchicine 0.6 mg Q12HR PO 05/10/25 10:00 05/12/25 21:03 0.6 MG Acetaminophen/ Hydrocodone Bitart 1 tab Q6HPRN PRN PO 05/11/25 08:45 05/12/25 15:39 1 TAB Amiodarone HCl 200 mg Q12HR PO 05/11/25 10:00 05/12/25 21:04 200 MG Furosemide 40 mg DAILY IV 05/12/25 10:00 05/12/25 08:25 40 MG Laboratory Results Laboratory Tests 05/13/25 05:36 Chemistry Test 05/13/25 05:36 Albumin 3.9 g/dL (3.2-4.8) Calcium Level 9.4 mg/dL (8.7-10.4) Magnesium Level 2.4 mg/dL (1.6-2.6) Total Protein 7.5 g/dL (5.7-8.2) LFT Test 05/13/25 05:36 Alanine Aminotransferase (ALT) 11 U/L (7-40) Alkaline Phosphatase 189 U/L (46-116) H Aspartate Amino Transferase (AST) 25 U/L (13-40) Total Bilirubin 0.6 mg/dL (0.2-1.0) Assessment/Plan Assessment/Plan Atrial fibrillation with a rapid ventricular response Acute on chronic congestive heart failure, systolic with reduced ejection fraction Acute hypoxic respiratory failure Pulmonary hypertension Hypertension Seizure disorder Left wrist and left foot injury, no fracture Generalized weakness 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 Hyper natremia Hypokalemia Plan Continue Eliquis Lasix IV Cardiology consult Echocardiogram showed ejection fraction 23% Metoprolol for rate control Replace potassium as needed Entresto Aldactone Lipitor Pain control morphine as needed 05/09/2025: Multiple joint pain rule out gout Check the uric acid level Hypomagnesemia: Replace Hypokalemia: Replace Lovenox Jardiance Lasix Metoprolol Entresto Aldactone Physical therapy 05/10/2025: Multiple joint pain most likely due to gout Osteoarthritis Generalized weakness Hypokalemia Start colchicine Physical therapy Paroxysmal atrial fibrillation: Still with rapid response, cardiology recommended digoxin, continue beta blockers and amiodarone,GDMT with Entresto and Aldactone and Lasix and beta blockers 05/11/2025: Atrial fibrillation: Change amiodarone to p.o., Metoprolol, Lovenox Heart failure: Entresto, Lasix, Aldactone, Jardiance Gout: Colchicine Weakness: Physical therapy 05/12/2025: Atrial fibrillation: Rate is controlled Heart failure: Continue current management Gout: Continue colchicine Right knee effusion: Aspirate the knee Monitor closely 05/13/2025: Knee synovial fluid analysis showed gout Continue colchicine Gout: Add steroids Continue physical therapy Atrial fibrillation: Continue amiodarone, switch Lovenox to Eliquis CHF: Entresto, Aldactone, beta blockers, Lasix Plan discussed with: Patient My Orders Orders - KUSUM ALEX MD Procedure Category Date Status Time R Knee 2v Xray XY 05/12/25 Resulted 10:12 Body Fluid Culture W/ JOE 05/12/25 Logged GS 15:13 Body Fluid Culture W/ JOE 05/12/25 In Process GS 15:44 Date of Service: May 13, 2025 Billing Provider: KUSUM ALEX MD Common Visit Codes: NOT BILLABLE KUSUM ALEX MD May 13, 2025 09:48
[2025-05-13] MEDS: APIXABAN 5 MG TAB PO SCH (10:00)
[2025-05-13] MEDS: methylPREDNISolone SOD SUCC 125 MG/2 ML VL IV ONE (10:40)
--- NOTE | 2025-05-13 23:01 | DVHPN2 ---
Progress Note - Dictate Date Seen: May 13, 2025 Medical Necessity Reason Pt with a Central, PICC or Fol: No Subjective Patient was seen and evaluated in follow up. Patient is still having pain in the right ankle but mostly in the right knee however pain is somewhat better today in comparison to yesterday per the patient. Synovial fluid analysis from the right knee shows Gout. BUN 26. Telemetry reviewed. vital signs Vital Sign Date Time Temp Pulse Resp B/P (MAP) Pulse Ox O2 Delivery O2 Flow Rate FiO2 05/13/25 09:40 97 Room Air 0.0 05/13/25 09:40 21 05/13/25 09:40 108/68 05/13/25 06:12 73 16 05/13/25 05:00 97.5 97.5 Total Intake and Output 05/12/25 05/12/25 05/13/25 15:00 23:00 07:00 Intake Total 0 ml 250 ml Output Total 200 ml Balance 0 ml 50 ml medications Current Medications Medications Dose Ordered Sig/Ziyad Route Start Time Stop Time Status Last Admin Dose Admin Pantoprazole Sodium 40 mg DAILY PO 05/08/25 10:00 05/13/25 09:40 40 MG Sacubitril/ Valsartan 1 tab BID PO 05/07/25 22:00 05/13/25 09:40 1 TAB Albuterol 2.5 mg Q4HPRN PRN NEB 05/07/25 13:15 Ipratropium [place] 0.5 mg Q4HPRN PRN NEB 05/07/25 13:15 Atorvastatin Calcium 20 mg HS PO 05/07/25 22:00 05/12/25 21:03 20 MG Spironolactone 25 mg DAILY PO 05/08/25 10:00 05/13/25 09:40 25 MG Nitroglycerin 0.4 mg Q5MINP PRN SL 05/07/25 13:15 Morphine Sulfate 2 mg Q6HPRN PRN IV 05/07/25 18:15 UNV Morphine Sulfate 4 mg Q4HPRN PRN IV 05/08/25 10:30 05/13/25 05:42 4 MG Acetaminophen 650 mg Q6HP PRN PO 05/08/25 10:30 05/11/25 04:53 650 MG Empaglifozin 10 mg DAILY PO 05/09/25 10:00 05/13/25 09:40 10 MG Hydralazine HCl 10 mg Q6HP PRN IV 05/08/25 12:30 Metoprolol Succinate 100 mg DAILY PO 05/10/25 10:00 05/12/25 08:25 100 MG Colchicine 0.6 mg Q12HR PO 05/10/25 10:00 05/13/25 09:40 0.6 MG Acetaminophen/ Hydrocodone Bitart 1 tab Q6HPRN PRN PO 05/11/25 08:45 05/12/25 15:39 1 TAB Amiodarone HCl 200 mg Q12HR PO 05/11/25 10:00 05/13/25 09:40 200 MG Furosemide 40 mg DAILY IV 05/12/25 10:00 05/13/25 09:40 40 MG Prednisone 10 mg DAILY PO 05/14/25 10:00 Apixaban 5 mg BID PO 05/13/25 10:00 objective GENERAL: Alert and oriented x 3. No acute distress. EYES: PERRL, EOMI. Anicteric. HENT: Moist mucous membranes. LUNGS: Clear to auscultation bilaterally. CARDIOVASCULAR: Irregular rate and rhythm. ABDOMEN: Soft, nontender and nondistended. EXTREMITIES: No edema. NEUROLOGIC: No focal neurological deficits. SKIN: Warm, dry. laboratory and microbiology Laboratory Tests 05/13/25 05:36 Test 05/13/25 05:36 Range/Units Serum Glucose 82 74-106 mg/dL Problem List Atrial fibrillation with rapid ventricular response (on Eliquis), controlled rate. Acute on chronic decompensated HFrEF, NYHA class III. Biventricular heart failure. ?Ischemic vs tachycardia-induced cardiomyopathy. Pulmonary hypertension, severe degree, likely Class III. Severe tricuspid valve regurgitation. Moderate degree mitral valve regurgitation. Hypertension. Dyslipidemia. COPD/Asthma. Assessment/Plan Continued all current supportive medical care. Morphine and [place] for pain management. Amiodarone. Lipitor, Metoprolol. GI prophylactics. Diuretics with Lasix. IV Hydralazine for SBP >150. Entresto. Additional plan as per the hospital course. Plan discussed with: Patient TOVA DUTTON MD May 13, 2025 13:19
[2025-05-14] VITALS (11 sets, daily range): BP systolic 98–140; BP diastolic 52–76; PULSE 55–82; RESP 17–20; TEMP 97.1–98.4; O2SAT 90–99
--- NOTE | 2025-05-14 15:01 | DVHPN2 ---
Progress Note - Dictate Date Seen: May 14, 2025 Medical Necessity Reason Pt with a Central, PICC or Fol: No Subjective Patient was seen and evaluated in follow up. No overnight events. Patient does not voice any complaints today. Denies any cardiac symptoms. Telemetry reviewed. vital signs Vital Sign Date Time Temp Pulse Resp B/P (MAP) Pulse Ox O2 Delivery O2 Flow Rate FiO2 05/14/25 13:00 97.5 55 20 106/52 (70) 90 97.5 05/14/25 09:55 Room Air* 0 21 Total Intake and Output 05/13/25 05/13/25 05/14/25 15:00 23:00 07:00 Intake Total 625 ml 350 ml Output Total 700 ml 500 ml Balance -75 ml -150 ml medications Current Medications Medications Dose Ordered Sig/Ziyad Route Start Time Stop Time Status Last Admin Dose Admin Pantoprazole Sodium 40 mg DAILY PO 05/08/25 10:00 05/14/25 10:26 40 MG Sacubitril/ Valsartan 1 tab BID PO 05/07/25 22:00 05/13/25 21:32 1 TAB Albuterol 2.5 mg Q4HPRN PRN NEB 05/07/25 13:15 Ipratropium [place] 0.5 mg Q4HPRN PRN NEB 05/07/25 13:15 Atorvastatin Calcium 20 mg HS PO 05/07/25 22:00 05/13/25 21:32 20 MG Spironolactone 25 mg DAILY PO 05/08/25 10:00 05/14/25 10:26 25 MG Nitroglycerin 0.4 mg Q5MINP PRN SL 05/07/25 13:15 Morphine Sulfate 2 mg Q6HPRN PRN IV 05/07/25 18:15 UNV Morphine Sulfate 4 mg Q4HPRN PRN IV 05/08/25 10:30 05/13/25 21:41 4 MG Acetaminophen 650 mg Q6HP PRN PO 05/08/25 10:30 05/11/25 04:53 650 MG Empaglifozin 10 mg DAILY PO 05/09/25 10:00 05/14/25 10:27 10 MG Hydralazine HCl 10 mg Q6HP PRN IV 05/08/25 12:30 Metoprolol Succinate 100 mg DAILY PO 05/10/25 10:00 05/13/25 13:51 100 MG Colchicine 0.6 mg Q12HR PO 05/10/25 10:00 05/14/25 10:25 0.6 MG Acetaminophen/ Hydrocodone Bitart 1 tab Q6HPRN PRN PO 05/11/25 08:45 05/14/25 10:32 1 TAB Amiodarone HCl 200 mg Q12HR PO 05/11/25 10:00 05/14/25 10:26 200 MG Furosemide 40 mg DAILY IV 05/12/25 10:00 05/14/25 10:27 40 MG Prednisone 10 mg DAILY PO 05/14/25 10:00 05/14/25 10:26 10 MG Apixaban 5 mg BID PO 05/13/25 10:00 05/14/25 10:26 5 MG objective GENERAL: Alert and oriented x 3. No acute distress. EYES: PERRL, EOMI. Anicteric. HENT: Moist mucous membranes. LUNGS: Clear to auscultation bilaterally. CARDIOVASCULAR: Irregular rate and rhythm. ABDOMEN: Soft, nontender and nondistended. EXTREMITIES: No edema. NEUROLOGIC: No focal neurological deficits. SKIN: Warm, dry. laboratory and microbiology Laboratory Tests 05/13/25 05:36 Test 05/13/25 05:36 Range/Units Serum Glucose 82 74-106 mg/dL Problem List Atrial fibrillation with rapid ventricular response (on Eliquis), controlled rate. Acute on chronic decompensated HFrEF, NYHA class III. Biventricular heart failure. ?Ischemic vs tachycardia-induced cardiomyopathy. Pulmonary hypertension, severe degree, likely Class III. Severe tricuspid valve regurgitation. Moderate degree mitral valve regurgitation. Hypertension. Dyslipidemia. COPD/Asthma. Assessment/Plan Continued all current supportive medical care. Morphine and [place] for pain management. Amiodarone. Eliquis. Lipitor, Metoprolol. Diuretics with Lasix. IV Hydralazine for SBP >150. GI prophylactics. Entresto. Additional plan as per the hospital course. Plan discussed with: Patient TOVA DUTTON MD May 14, 2025 14:31
[2025-05-15] VITALS (11 sets, daily range): BP systolic 92–109; BP diastolic 55–79; PULSE 50–81; RESP 16–20; TEMP 97.9–98.7; O2SAT 93–100
--- NOTE | 2025-05-15 10:41 | DVHPN2 ---
Reviewed: Care Plan, H&P, Labs, Medications, Previous Orders, Radiology Changes from previous H/P or p: No Changes General: Per HPI Eyes: No Pain, No Vision change, No Conjunctivae inflammation, No Eyelid inflammation, No Other, No Redness ENT: No Ear pain, No Ear discharge, No Nose pain, No Nose discharge, No Nose congestion, No Mouth pain, No Mouth swelling, No Throat pain, No Throat swelling, No Other Cardiovascular: No Chest Pain; Palpitations; No Orthopnea, No Paroxysmal Noc. Dyspnea; Edema; No Lt Headedness, No Other Respiratory: No Cough, No Dry; Shortness of breath; No SOB with excertion, No Wheezing, No Hemoptysis, No Pleuritic Pain, No Sputum, No Other Gastrointestinal: No Nausea, No Vomiting, No Abdominal Pain, No Diarrhea, No Constipation, No Melena, No Hematochezia, No Other Genitourinary: No Dysuria, No Frequency, No Incontinence, No Hematuria, No Retention, No Other Musculoskeletal: No other, No neck pain, No shoulder pain, No arm pain, No back pain, No hand pain; leg pain, foot pain Skin: No Rash, No Lesions, No Jaundice, No Bruising, No Other Objective Vitals Vital Signs Date Time Temp Pulse Resp B/P (MAP) Pulse Ox O2 Delivery O2 Flow Rate FiO2 05/15/25 09:00 98.7 61 20 109/79 (89) 100 98.7 05/15/25 06:15 Room Air 0.0 05/15/25 06:15 21 Intake/Output Intake and Output 05/15/25 07:00 Intake Total 1505 ml Output Total 1250 ml Balance 255 ml Intake Oral 1505 ml Output Urine Total 1250 ml # Bowel Movements 3 General Appearance: Alert, Oriented X3, Cooperative, No acute distress, m oderate distress Lungs: Other (Bilateral rhonchi) Cardiovascular: Other (Irregularly irregular heart rate 100) Abdomen: Normal bowel sounds, Soft, No tenderness, No hepatospenomegaly Extremities: No edema Medications Current Medications Medications Dose Ordered Sig/Ziyad Route Start Time Stop Time Status Last Admin Dose Admin Pantoprazole Sodium 40 mg DAILY PO 05/08/25 10:00 05/14/25 10:26 40 MG Sacubitril/ Valsartan 1 tab BID PO 05/07/25 22:00 05/14/25 21:37 1 TAB Albuterol 2.5 mg Q4HPRN PRN NEB 05/07/25 13:15 Ipratropium [place] 0.5 mg Q4HPRN PRN NEB 05/07/25 13:15 Atorvastatin Calcium 20 mg HS PO 05/07/25 22:00 05/14/25 21:37 20 MG Spironolactone 25 mg DAILY PO 05/08/25 10:00 05/14/25 10:26 25 MG Nitroglycerin 0.4 mg Q5MINP PRN SL 05/07/25 13:15 Morphine Sulfate 2 mg Q6HPRN PRN IV 05/07/25 18:15 UNV Morphine Sulfate 4 mg Q4HPRN PRN IV 05/08/25 10:30 05/13/25 21:41 4 MG Acetaminophen 650 mg Q6HP PRN PO 05/08/25 10:30 05/11/25 04:53 650 MG Empaglifozin 10 mg DAILY PO 05/09/25 10:00 05/14/25 10:27 10 MG Hydralazine HCl 10 mg Q6HP PRN IV 05/08/25 12:30 Metoprolol Succinate 100 mg DAILY PO 05/10/25 10:00 05/13/25 13:51 100 MG Colchicine 0.6 mg Q12HR PO 05/10/25 10:00 05/14/25 21:37 0.6 MG Acetaminophen/ Hydrocodone Bitart 1 tab Q6HPRN PRN PO 05/11/25 08:45 05/14/25 10:32 1 TAB Amiodarone HCl 200 mg Q12HR PO 05/11/25 10:00 05/14/25 21:37 200 MG Furosemide 40 mg DAILY IV 05/12/25 10:00 05/14/25 10:27 40 MG Prednisone 10 mg DAILY PO 05/14/25 10:00 05/14/25 10:26 10 MG Apixaban 5 mg BID PO 05/13/25 10:00 05/14/25 21:37 5 MG Enteral Nutritional Formula 240 ml TIDWM PO 05/15/25 12:00 UNV Laboratory Results Laboratory Tests 05/13/25 05:36 Microbiology Microbiology Date/Time Source Procedure Growth Status 05/12/25 15:15 Knee Fluid Right Gram Stain - Final Resulted 05/12/25 15:15 Knee Fluid Right Body Fluid Culture - Preliminary No growth Resulted Labs and/or images reviewed: Labs reviewed by me, Image(s) reviewed by me Assessment/Plan Assessment/Plan Atrial fibrillation with a rapid ventricular response Acute on chronic congestive heart failure, systolic with reduced ejection fraction Acute hypoxic respiratory failure Pulmonary hypertension Hypertension Seizure disorder Left wrist and left foot injury, no fracture Generalized weakness 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 Hyper natremia Hypokalemia Plan Continue Eliquis Lasix IV Cardiology consult Echocardiogram showed ejection fraction 23% Metoprolol for rate control Replace potassium as needed Entresto Aldactone Lipitor Pain control morphine as needed 05/09/2025: Multiple joint pain rule out gout Check the uric acid level Hypomagnesemia: Replace Hypokalemia: Replace Lovenox Jardiance Lasix Metoprolol Entresto Aldactone Physical therapy 05/10/2025: Multiple joint pain most likely due to gout Osteoarthritis Generalized weakness Hypokalemia Start colchicine Physical therapy Paroxysmal atrial fibrillation: Still with rapid response, cardiology recommended digoxin, continue beta blockers and amiodarone,GDMT with Entresto and Aldactone and Lasix and beta blockers 05/11/2025: Atrial fibrillation: Change amiodarone to p.o., Metoprolol, Lovenox Heart failure: Entresto, Lasix, Aldactone, Jardiance Gout: Colchicine Weakness: Physical therapy 05/12/2025: Atrial fibrillation: Rate is controlled Heart failure: Continue current management Gout: Continue colchicine Right knee effusion: Aspirate the knee Monitor closely 05/13/2025: Knee synovial fluid analysis showed gout Continue colchicine Gout: Add steroids Continue physical therapy Atrial fibrillation: Continue amiodarone, switch Lovenox to Eliquis CHF: Entresto, Aldactone, beta blockers, Lasix 05/14/2025 continue with current care if pt remains stable, possible d/c in 24 hours Plan discussed with: Patient My Orders Orders - ASIYA BOWEN DO Procedure Category Date Status Time Nutritional PHA 05/15/25 Logged Supplements (Ensure 12:00 Date of Service: May 14, 2025 Billing Provider: ASIYA BOWEN DO Common Visit Codes: [id number] INP/OBS CARE(HIGH) ASIYA BOWEN DO May 15, 2025 10:41
[2025-05-15] MEDS ORDERED: APIX5TAB PO (10:44)
[2025-05-15] MEDS ORDERED: SPIR25TA PO (10:44)
[2025-05-15] MEDS ORDERED: ATOR20TA50 PO (10:44)
[2025-05-15] MEDS ORDERED: AMIO200T13 PO (10:44)
[2025-05-15] MEDS ORDERED: METO-6 PO (10:44)
[2025-05-15] MEDS ORDERED: EMPA1TAB PO (10:44)
--- NOTE | 2025-05-15 10:46 | DVHDS2 ---
Discharge Summary Date of Admission May 07, 2025 at 13:04 Date of Discharge: May 15, 2025 Labs/Diagnostic Data: Laboratory Results Test 05/13/25 05:36 05/12/25 15:15 05/09/25 06:00 05/08/25 05:32 White Blood Count 6.9 10^3/uL (4.4-10.8) Red Blood Count 6.00 10^6/uL (4.0-5.20) Hemoglobin 13.9 g/dL (12.2-16.2) Hematocrit 43.1 % (36.0-46.0) Mean Corpuscular Volume 71.8 fL (80.0-100.0) Mean Corpuscular Hemoglobin 23.1 pg (28.0-32.0) Mean Corpuscular Hemoglobin Concent 32.2 g/dL (32.0-36.0) Red Cell Distribution Width 18.6 % (11.8-14.3) Platelet Count 359 10^3/uL (140-450) Mean Platelet Volume 8.3 fL (6.9-10.8) Neutrophils (%) (Auto) 55.7 % (37.0-80.0) Lymphocytes (%) (Auto) 24.6 % (10.0-50.0) Monocytes (%) (Auto) 15.8 % (0.0-12.0) Eosinophils (%) (Auto) 2.9 % (0.0-7.0) Basophils (%) (Auto) 1.0 % (0.0-2.0) Neutrophils # (Auto) 3.8 10 ^3/uL (1.6-8.6) Lymphocytes # (Auto) 1.7 10 ^3/uL (0.4-5.4) Monocytes # (Auto) 1.1 10 ^3/uL (0-1.3) Eosinophils # (Auto) 0.2 10 ^3/uL (0-0.8) Basophils # (Auto) 0.1 10 ^3/uL (0-0.2) Nucleated Red Blood Cells 0.2 % Sodium Level 137 mmol/L (136-145) Potassium Level 3.9 mmol/L (3.5-5.1) Chloride Level 101 mmol/L (98-107) Carbon Dioxide Level 24 mmol/L (20-31) Anion Gap 12 (5-15) Blood Urea Nitrogen 26 mg/dL (9-23) Creatinine 0.79 mg/dL (0.550-1.02) Glomerular Filtration Rate Calc 77 mL/min (>90) BUN/Creatinine Ratio 32.9 (10.0-20.0) Serum Glucose 82 mg/dL (74-106) Calcium Level 9.4 mg/dL (8.7-10.4) Magnesium Level 2.4 mg/dL (1.6-2.6) Total Bilirubin 0.6 mg/dL (0.2-1.0) Aspartate Amino Transferase (AST) 25 U/L (13-40) Alanine Aminotransferase (ALT) 11 U/L (7-40) Alkaline Phosphatase 189 U/L (46-116) Total Protein 7.5 g/dL (5.7-8.2) Albumin 3.9 g/dL (3.2-4.8) Body Fluid Source Rt. knee fluid Body Fluid pH 8.0 Body Fluid WBC (Manual) 86106 CUMM (0-200) Body Fluid RBC (Manual) 9900 CUMM (0-2000) Body Fluid Mononuclear Cells 5 % Body Fluid Polymorphonuclear Cells 95 % (0-25) Bile Fluid Crystals True gout Uric Acid 8.3 mg/dL (3.1-7.8) Triglycerides Level 99 mg/dL (< 150) Cholesterol Level 106 mg/dL (< 200) LDL Cholesterol 52 mg/dL (< 100) HDL Cholesterol 35 mg/dL (40-59) Hemoglobin A1c 5.8 % A1C (<5.7) Test 05/07/25 15:11 05/07/25 13:21 05/07/25 11:25 Troponin I High Sensitivity 6 ng/L (</=34) Lactic Acid Level 1.5 mmol/L (0.4-2.0) Phosphorus Level 2.9 mg/dL (2.4-5.1) B-Type Natriuretic Peptide 1168.56 pg/mL (0-100) Thyroid Stimulating Hormone (TSH) 1.82 uIU/mL (0.55-4.78) Other Laboratory Tests 05/13/25 05:36 Brief Hx & Hospital Course: Atrial fibrillation with a rapid ventricular response Acute on chronic congestive heart failure, systolic with reduced ejection fraction Acute hypoxic respiratory failure Pulmonary hypertension Hypertension Seizure disorder Left wrist and left foot injury, no fracture Generalized weakness 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 Hyper natremia Hypokalemia Plan Continue Eliquis Lasix IV Cardiology consult Echocardiogram showed ejection fraction 23% Metoprolol for rate control Replace potassium as needed Entresto Aldactone Lipitor Pain control morphine as needed 05/09/2025: Multiple joint pain rule out gout Check the uric acid level Hypomagnesemia: Replace Hypokalemia: Replace Lovenox Jardiance Lasix Metoprolol Entresto Aldactone Physical therapy 05/10/2025: Multiple joint pain most likely due to gout Osteoarthritis Generalized weakness Hypokalemia Start colchicine Physical therapy Paroxysmal atrial fibrillation: Still with rapid response, cardiology recommended digoxin, continue beta blockers and amiodarone,GDMT with Entresto and Aldactone and Lasix and beta blockers 05/11/2025: Atrial fibrillation: Change amiodarone to p.o., Metoprolol, Lovenox Heart failure: Entresto, Lasix, Aldactone, Jardiance Gout: Colchicine Weakness: Physical therapy 05/12/2025: Atrial fibrillation: Rate is controlled Heart failure: Continue current management Gout: Continue colchicine Right knee effusion: Aspirate the knee Monitor closely 05/13/2025: Knee synovial fluid analysis showed gout Continue colchicine Gout: Add steroids Continue physical therapy Atrial fibrillation: Continue amiodarone, switch Lovenox to Eliquis CHF: Entresto, Aldactone, beta blockers, Lasix 05/14/2025 continue with current care if pt remains stable, possible d/c in 24 hours Condition at Discharge: Good Final Diagnosis/Problems List a-fib Discharge Disposition: Home Discharge Instruct/Medications Diet: Cardiac 2g Na,low cholest Activity: No Restrictions, As Tolerated Scheduled Amiodarone HCl (Amiodarone HCl), 200 MG PO Q12HR Apixaban Base (Eliquis), 5 MG PO BID Apixaban Base (Eliquis), 5 MG PO BID Apixaban Base (Eliquis), 5 MG PO BID Atorvastatin Calcium (Atorvastatin Calcium), 20 MG PO HS Dronedarone Hydrochloride (Multaq), 1 TAB PO BIDWM, (Reported) Dronedarone Hydrochloride (Multaq), 1 TAB PO BID Empagliflozin (Jardiance), 10 MG PO DAILY Furosemide (Lasix), 40 MG PO BID Furosemide (Lasix), 40 MG PO DAILY Metoprolol Succinate (Toprol Xl), 100 MG PO DAILY Metoprolol Tartrate (Metoprolol Tartrate), 1 TAB PO BID, (Reported) Metoprolol Tartrate (Metoprolol Tartrate), 50 MG PO BID Pantoprazole Sodium Sesquihydr (Protonix), 1 TAB PO DAILY, (Reported) Sacubitril-Valsartan (Entresto 24-26 mg), 1 TAB PO BID Sacubitril-Valsartan (Entresto 24-26 mg), 1 TAB PO BID Spironolactone (Aldactone), 25 MG PO DAILY Scheduled PRN Albuterol Sulfate (Albuterol Sulfate Hfa), 2 PUFF IN Q6HR PRN for WHEEZING, (Reported) Ibuprofen Micronized (Ibuprofen), 600 MG PO Q6HP PRN Durable Medical Equipment Respiratory Therapy Supplies (Full Kit Nebulizer Set), [facility], (DME) Discharge Statement: "Patient was advised to return to the ER or call 911 if any headaches, dizziness, shortness of breath, chest pain, abdominal pain, bleeding, fevers, or worsening of medical condition. Patient was counseled about treatment plan, medications, possible side effects, patientverbalized understanding. All questions were answered to the best of my ability. This discharge took greater then 30 minutes in planning, reviewing documentation, counseling the patient, and discussing with other team members." ASSESSMENT ASSESSMENT Assessment Date of Service: May 15, 2025 Billing Provider: ASIYA BOWEN DO Common Visit Codes: [id number] DISCH DAY >30min ASIYA BOWEN DO May 15, 2025 10:46
[2025-05-15] MEDS ORDERED: COLC1CAP PO (10:47)
[2025-05-15] MEDS: Ensure Enlive Strawberry 8oz Bottle PO SCH (12:00)
--- NOTE | 2025-05-15 21:21 | DVHPN2 ---
Progress Note - Dictate Date Seen: May 15, 2025 Medical Necessity Reason Pt with a Central, PICC or Fol: No Subjective Patient was seen and evaluated in follow up. No overnight events. Patient is stable on room air. Patient without any complaints. Pending HH/DME arrangements. Telemetry reviewed. vital signs Vital Sign Date Time Temp Pulse Resp B/P (MAP) Pulse Ox O2 Delivery O2 Flow Rate FiO2 05/15/25 09:00 98.7 61 20 109/79 (89) 100 98.7 05/15/25 06:15 Room Air 0.0 05/15/25 06:15 21 Total Intake and Output 05/14/25 05/14/25 05/15/25 15:00 23:00 07:00 Intake Total 880 ml 625 ml Output Total 600 ml 650 ml Balance 280 ml -25 ml medications Current Medications Medications Dose Ordered Sig/Ziyad Route Start Time Stop Time Status Last Admin Dose Admin Pantoprazole Sodium 40 mg DAILY PO 05/08/25 10:00 05/14/25 10:26 40 MG Sacubitril/ Valsartan 1 tab BID PO 05/07/25 22:00 05/14/25 21:37 1 TAB Albuterol 2.5 mg Q4HPRN PRN NEB 05/07/25 13:15 Ipratropium [place] 0.5 mg Q4HPRN PRN NEB 05/07/25 13:15 Atorvastatin Calcium 20 mg HS PO 05/07/25 22:00 05/14/25 21:37 20 MG Spironolactone 25 mg DAILY PO 05/08/25 10:00 05/14/25 10:26 25 MG Nitroglycerin 0.4 mg Q5MINP PRN SL 05/07/25 13:15 Morphine Sulfate 2 mg Q6HPRN PRN IV 05/07/25 18:15 UNV Morphine Sulfate 4 mg Q4HPRN PRN IV 05/08/25 10:30 05/13/25 21:41 4 MG Acetaminophen 650 mg Q6HP PRN PO 05/08/25 10:30 05/11/25 04:53 650 MG Empaglifozin 10 mg DAILY PO 05/09/25 10:00 05/14/25 10:27 10 MG Hydralazine HCl 10 mg Q6HP PRN IV 05/08/25 12:30 Metoprolol Succinate 100 mg DAILY PO 05/10/25 10:00 05/13/25 13:51 100 MG Colchicine 0.6 mg Q12HR PO 05/10/25 10:00 05/14/25 21:37 0.6 MG Acetaminophen/ Hydrocodone Bitart 1 tab Q6HPRN PRN PO 05/11/25 08:45 05/14/25 10:32 1 TAB Amiodarone HCl 200 mg Q12HR PO 05/11/25 10:00 05/14/25 21:37 200 MG Furosemide 40 mg DAILY IV 05/12/25 10:00 05/14/25 10:27 40 MG Prednisone 10 mg DAILY PO 05/14/25 10:00 05/14/25 10:26 10 MG Apixaban 5 mg BID PO 05/13/25 10:00 05/14/25 21:37 5 MG Enteral Nutritional Formula 240 ml TIDWM PO 05/15/25 12:00 objective GENERAL: Alert and oriented x 3. No acute distress. EYES: PERRL, EOMI. Anicteric. HENT: Moist mucous membranes. LUNGS: Clear to auscultation bilaterally. CARDIOVASCULAR: Irregular rate and rhythm. ABDOMEN: Soft, nontender and nondistended. EXTREMITIES: No edema. NEUROLOGIC: No focal neurological deficits. SKIN: Warm, dry. laboratory and microbiology Laboratory Tests 05/13/25 05:36 Test 05/13/25 05:36 Range/Units Serum Glucose 82 74-106 mg/dL Problem List Atrial fibrillation with rapid ventricular response (on Eliquis), controlled rate. Acute on chronic decompensated HFrEF, NYHA class III. Biventricular heart failure. ?Ischemic vs tachycardia-induced cardiomyopathy. Pulmonary hypertension, severe degree, likely Class III. Severe tricuspid valve regurgitation. Moderate degree mitral valve regurgitation. Hypertension. Dyslipidemia. COPD/Asthma. Assessment/Plan Continued all current supportive medical care. Morphine and [place] for pain management. Amiodarone. Eliquis. Lipitor, Metoprolol. Diuretics with Lasix. IV Hydralazine for SBP >150. GI prophylactics. Entresto. Additional plan as per the hospital course. Plan discussed with: Patient TOVA DUTTON MD May 15, 2025 12:07
[2025-05-16] VITALS (12 sets, daily range): BP systolic 97–128; BP diastolic 61–73; PULSE 51–68; RESP 14–18; TEMP 97.3–98.6; O2SAT 10–100
--- NOTE | 2025-05-16 23:23 | DVHPN2 ---
Progress Note - Dictate Date Seen: May 16, 2025 Medical Necessity Reason Pt with a Central, PICC or Fol: No Subjective Patient was seen and evaluated in follow up. Patient does not voice any complaints. Patient is bradycardic in the low 50s. CM is working on HH/DME arrangements. Telemetry reviewed. vital signs Vital Sign Date Time Temp Pulse Resp B/P (MAP) Pulse Ox O2 Delivery O2 Flow Rate FiO2 05/16/25 09:57 122/61 05/16/25 09:56 51 05/16/25 09:54 96 Room Air 0.0 05/16/25 09:54 21 05/16/25 09:00 98.4 14 98.4 Total Intake and Output 05/15/25 05/15/25 05/16/25 15:00 23:00 07:00 Intake Total 700 ml 800 ml Output Total 600 ml 600 ml Balance 100 ml 200 ml medications Current Medications Medications Dose Ordered Sig/Ziyad Route Start Time Stop Time Status Last Admin Dose Admin Pantoprazole Sodium 40 mg DAILY PO 05/08/25 10:00 05/16/25 09:54 40 MG Sacubitril/ Valsartan 1 tab BID PO 05/07/25 22:00 05/16/25 09:54 1 TAB Albuterol 2.5 mg Q4HPRN PRN NEB 05/07/25 13:15 Ipratropium [place] 0.5 mg Q4HPRN PRN NEB 05/07/25 13:15 Atorvastatin Calcium 20 mg HS PO 05/07/25 22:00 05/15/25 21:51 20 MG Spironolactone 25 mg DAILY PO 05/08/25 10:00 05/16/25 09:55 25 MG Nitroglycerin 0.4 mg Q5MINP PRN SL 05/07/25 13:15 Morphine Sulfate 2 mg Q6HPRN PRN IV 05/07/25 18:15 UNV Morphine Sulfate 4 mg Q4HPRN PRN IV 05/08/25 10:30 05/13/25 21:41 4 MG Acetaminophen 650 mg Q6HP PRN PO 05/08/25 10:30 05/11/25 04:53 650 MG Empaglifozin 10 mg DAILY PO 05/09/25 10:00 05/16/25 09:54 10 MG Hydralazine HCl 10 mg Q6HP PRN IV 05/08/25 12:30 Metoprolol Succinate 100 mg DAILY PO 05/10/25 10:00 05/16/25 09:56 100 MG Colchicine 0.6 mg Q12HR PO 05/10/25 10:00 05/16/25 09:54 0.6 MG Acetaminophen/ Hydrocodone Bitart 1 tab Q6HPRN PRN PO 05/11/25 08:45 05/16/25 09:56 1 TAB Amiodarone HCl 200 mg Q12HR PO 05/11/25 10:00 05/16/25 09:54 200 MG Furosemide 40 mg DAILY IV 05/12/25 10:00 05/16/25 09:57 40 MG Prednisone 10 mg DAILY PO 05/14/25 10:00 05/16/25 09:54 10 MG Apixaban 5 mg BID PO 05/13/25 10:00 05/16/25 09:54 5 MG Enteral Nutritional Formula 240 ml TIDWM PO 05/15/25 12:00 05/16/25 12:00 240 ML objective GENERAL: Alert and oriented x 3. No acute distress. EYES: PERRL, EOMI. Anicteric. HENT: Moist mucous membranes. LUNGS: Clear to auscultation bilaterally. CARDIOVASCULAR: Irregular rate and rhythm. ABDOMEN: Soft, nontender and nondistended. EXTREMITIES: No edema. NEUROLOGIC: No focal neurological deficits. SKIN: Warm, dry. laboratory and microbiology Laboratory Tests 05/13/25 05:36 Test 05/13/25 05:36 Range/Units Serum Glucose 82 74-106 mg/dL Problem List Atrial fibrillation with rapid ventricular response (on Eliquis), controlled rate. Acute on chronic decompensated HFrEF, NYHA class III. Biventricular heart failure. ?Ischemic vs tachycardia-induced cardiomyopathy. Pulmonary hypertension, severe degree, likely Class III. Severe tricuspid valve regurgitation. Moderate degree mitral valve regurgitation. Hypertension. Dyslipidemia. COPD/Asthma. Assessment/Plan Continued all current supportive medical care. Morphine and [place] for pain management. Amiodarone. Eliquis. Lipitor, Metoprolol. Diuretics with Lasix. IV Hydralazine for SBP >150. GI prophylactics. Entresto. Additional plan as per the hospital course. Plan discussed with: Patient TOVA DUTTON MD May 16, 2025 13:21
[2025-05-17] VITALS (11 sets, daily range): BP systolic 91–107; BP diastolic 55–73; PULSE 52–78; RESP 14–19; TEMP 97.4–97.9; O2SAT 94–99
--- NOTE | 2025-05-17 16:04 | DVHPN2 ---
Assessment/Plan Assessment/Plan 05/17 hold dc, send stool wbc. patient having >5 watery diarrhea assessment and plan Atrial fibrillation with a rapid ventricular response Acute on chronic congestive heart failure, systolic with reduced ejection fraction Acute hypoxic respiratory failure Pulmonary hypertension Hypertension Seizure disorder Left wrist and left foot injury, no fracture Generalized weakness 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 Hyper natremia Hypokalemia Continue Eliquis Lasix IV Cardiology consult Echocardiogram showed ejection fraction 23% Metoprolol for rate control Replace potassium as needed Entresto Aldactone Lipitor Pain control morphine as needed full code Plan discussed with: Patient Date of Service: May 17, 2025 Billing Provider: INES ISLVA MD Common Visit Codes: [id number] INP/OBS CARE(HIGH) INES SILVA MD May 17, 2025 16:04
[2025-05-17 18:32] LABS: Anion Gap 13 (5-15); BUN/Creatinine Ratio 31.0 (10.0-20.0); Calcium 9.3 mg/dL (8.7-10.4); Chloride 106 mmol/L (98-107); Potassium 3.6 mmol/L (3.5-5.1); Sodium 138 mmol/L (136-145); Total Protein 8.1 g/dL (5.7-8.2)
[2025-05-17 18:33] LABS: Albumin 4.4 g/dL (3.2-4.8); Bilirubin, Total 0.5 mg/dL (0.2-1.0)
[2025-05-17 18:57] LABS: Alanine Aminotransferase 55 U/L (7-40); Alkaline Phosphatase 300 U/L (46-116); Blood Urea Nitrogen 40 mg/dL (9-23); Carbon Dioxide 19 mmol/L (20-31); Glucose 111 mg/dL (74-106)
--- NOTE | 2025-05-17 23:15 | DVHPN2 ---
Progress Note - Dictate Date Seen: May 17, 2025 Medical Necessity Reason Pt with a Central, PICC or Fol: No Subjective Patient was seen and evaluated in follow up. Patient had multiple watery diarrhea episodes. Discharge was held. 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 Stool WBCs are negative. Telemetry reviewed. vital signs Vital Sign Date Time Temp Pulse Resp B/P (MAP) Pulse Ox O2 Delivery O2 Flow Rate FiO2 05/17/25 21:00 97.7 65 16 102/70 (81) 99 97.7 05/17/25 19:54 Room Air 05/17/25 19:54 0 21 Total Intake and Output 05/16/25 05/16/25 05/17/25 15:00 23:00 07:00 Intake Total 900 ml 340 ml Output Total 750 ml 320 ml Balance 150 ml 20 ml medications Current Medications Medications Dose Ordered Sig/Ziyad Route Start Time Stop Time Status Last Admin Dose Admin Pantoprazole Sodium 40 mg DAILY PO 05/08/25 10:00 05/17/25 09:32 40 MG Sacubitril/ Valsartan 1 tab BID PO 05/07/25 22:00 05/17/25 21:46 1 TAB Albuterol 2.5 mg Q4HPRN PRN NEB 05/07/25 13:[address] [place] 0.5 mg Q4HPRN PRN NEB 05/07/25 13:15 Atorvastatin Calcium 20 mg HS PO 05/07/25 22:00 05/17/25 21:46 20 MG Spironolactone 25 mg DAILY PO 05/08/25 10:00 05/16/25 09:55 25 MG Nitroglycerin 0.4 mg Q5MINP PRN SL 05/07/25 13:15 Morphine Sulfate 2 mg Q6HPRN PRN IV 05/07/25 18:15 UNV Acetaminophen 650 mg Q6HP PRN PO 05/08/25 10:30 05/11/25 04:53 650 MG Empaglifozin 10 mg DAILY PO 05/09/25 10:00 05/17/25 09:31 10 MG Hydralazine HCl 10 mg Q6HP PRN IV 05/08/25 12:30 Metoprolol Succinate 100 mg DAILY PO 05/10/25 10:00 05/16/25 09:56 100 MG Colchicine 0.6 mg Q12HR PO 05/10/25 10:00 05/17/25 21:46 0.6 MG Acetaminophen/ Hydrocodone Bitart 1 tab Q6HPRN PRN PO 05/11/25 08:45 05/17/25 20:13 1 TAB Amiodarone HCl 200 mg Q12HR PO 05/11/25 10:00 05/17/25 21:46 200 MG Furosemide 40 mg DAILY IV 05/12/25 10:00 05/17/25 09:33 40 MG Prednisone 10 mg DAILY PO 05/14/25 10:00 05/17/25 09:32 10 MG Apixaban 5 mg BID PO 05/13/25 10:00 05/17/25 21:46 5 MG Enteral Nutritional Formula 240 ml TIDWM PO 05/15/25 12:00 05/17/25 17:47 240 ML objective GENERAL: Alert and oriented x 3. No acute distress. EYES: PERRL, EOMI. Anicteric. HENT: Moist mucous membranes. LUNGS: Clear to auscultation bilaterally. CARDIOVASCULAR: Irregular rate and rhythm. ABDOMEN: Soft, nontender and nondistended. EXTREMITIES: No edema. NEUROLOGIC: No focal neurological deficits. SKIN: Warm, dry. laboratory and microbiology Laboratory Tests 05/17/25 17:49 05/13/25 05:36 Test 05/17/25 17:49 Range/Units Serum Glucose 111 H 74-106 mg/dL Problem List Atrial fibrillation with rapid ventricular response (on Eliquis), controlled rate. Acute on chronic decompensated HFrEF, NYHA class III. Biventricular heart failure. ?Ischemic vs tachycardia-induced cardiomyopathy. Pulmonary hypertension, severe degree, likely Class III. Severe tricuspid valve regurgitation. Moderate degree mitral valve regurgitation. Hypertension. Dyslipidemia. COPD/Asthma. Assessment/Plan Continued all current supportive medical care. Morphine and [place] for pain management. Amiodarone. Eliquis. Lipitor, Metoprolol. Diuretics with Lasix. IV Hydralazine for SBP >150. GI prophylactics. Entresto. Additional plan as per the hospital course. Plan discussed with: Patient TOVA DUTTON MD May 17, 2025 23:15
[2025-05-18] VITALS (10 sets, daily range): BP systolic 96–122; BP diastolic 73–86; PULSE 63–82; RESP 16–18; TEMP 97–98.3; O2SAT 94–100
[2025-05-18 07:58] LABS: Anion Gap 13 (5-15); Calcium 9.3 mg/dL (8.7-10.4); Chloride 105 mmol/L (98-107); Sodium 138 mmol/L (136-145)
[2025-05-18 08:02] LABS: Carbon Dioxide 20 mmol/L (20-31); Potassium 3.5 mmol/L (3.5-5.1)
[2025-05-18 08:03] LABS: BUN/Creatinine Ratio 34.1 (10.0-20.0); Glucose 82 mg/dL (74-106)
[2025-05-18 08:04] LABS: Blood Urea Nitrogen 46 mg/dL (9-23)
--- NOTE | 2025-05-18 09:58 | DVHPN2 ---
Subjective SHE IS STILL WITH SIGNIFICANT DIARRHEA c/o abd camps Joint pain and swelling is better Reviewed: Care Plan, H&P, Labs, Medications, Previous Orders, Radiology Changes from previous H/P or p: Changes General: Per HPI Eyes: No Pain, No Vision change, No Conjunctivae inflammation, No Eyelid inflammation, No Other, No Redness ENT: No Ear pain, No Ear discharge, No Nose pain, No Nose discharge, No Nose congestion, No Mouth pain, No Mouth swelling, No Throat pain, No Throat swelling, No Other Cardiovascular: No Chest Pain; Palpitations; No Orthopnea, No Paroxysmal Noc. Dyspnea; Edema; No Lt Headedness, No Other Respiratory: No Cough, No Dry; Shortness of breath; No SOB with excertion, No Wheezing, No Hemoptysis, No Pleuritic Pain, No Sputum, No Other Gastrointestinal: No Nausea, No Vomiting, No Abdominal Pain, No Diarrhea, No Constipation, No Melena, No Hematochezia, No Other Genitourinary: No Dysuria, No Frequency, No Incontinence, No Hematuria, No Retention, No Other Musculoskeletal: No other, No neck pain, No shoulder pain, No arm pain, No back pain, No hand pain; leg pain, foot pain Skin: No Rash, No Lesions, No Jaundice, No Bruising, No Other Objective Vitals Vital Signs Date Time Temp Pulse Resp B/P (MAP) Pulse Ox O2 Delivery O2 Flow Rate FiO2 05/18/25 09:13 90/72 05/18/25 09:11 66 05/18/25 07:00 94 Room Air 05/18/25 07:00 0 21 05/18/25 05:00 98.3 16 98.3 Intake/Output Intake and Output 05/18/25 07:00 Intake Total 1000 ml Output Total 800 ml Balance 200 ml Intake Oral 1000 ml Output Urine Total 800 ml # Bowel Movements 3 General Appearance: Alert, Oriented X3, Cooperative, No acute distress, m oderate distress Lungs: Other (Bilateral rhonchi) Cardiovascular: Other (Irregularly irregular heart rate 100) Abdomen: Normal bowel sounds, Soft, No tenderness, No hepatospenomegaly Extremities: No edema Medications Current Medications Medications Dose Ordered Sig/Ziyad Route Start Time Stop Time Status Last Admin Dose Admin Pantoprazole Sodium 40 mg DAILY PO 05/08/25 10:00 05/18/25 09:11 40 MG Sacubitril/ Valsartan 1 tab BID PO 05/07/25 22:00 05/17/25 21:46 1 TAB Albuterol 2.5 mg Q4HPRN PRN NEB 05/07/25 13:15 Cancel Ipratropium [place] 0.5 mg Q4HPRN PRN NEB 05/07/25 13:15 Cancel Atorvastatin Calcium 20 mg HS PO 05/07/25 22:00 05/17/25 21:46 20 MG Nitroglycerin 0.4 mg Q5MINP PRN SL 05/07/25 13:15 Morphine Sulfate 2 mg Q6HPRN PRN IV 05/07/25 18:15 UNV Acetaminophen 650 mg Q6HP PRN PO 05/08/25 10:30 05/18/25 04:56 650 MG Empaglifozin 10 mg DAILY PO 05/09/25 10:00 05/18/25 09:09 10 MG Hydralazine HCl 10 mg Q6HP PRN IV 05/08/25 12:30 Metoprolol Succinate 100 mg DAILY PO 05/10/25 10:00 05/16/25 09:56 100 MG Acetaminophen/ Hydrocodone Bitart 1 tab Q6HPRN PRN PO 05/11/25 08:45 05/17/25 20:13 1 TAB Amiodarone HCl 200 mg Q12HR PO 05/11/25 10:00 05/18/25 09:19 200 MG Prednisone 10 mg DAILY PO 05/14/25 10:00 05/18/25 09:09 10 MG Apixaban 5 mg BID PO 05/13/25 10:00 05/18/25 09:12 5 MG Enteral Nutritional Formula 240 ml TIDWM PO 05/15/25 12:00 05/18/25 09:08 240 ML Laboratory Results Laboratory Tests 05/13/25 05:36 05/18/25 07:09 Chemistry Test 05/17/25 17:49 05/18/25 07:09 Albumin 4.4 g/dL (3.2-4.8) Calcium Level 9.3 mg/dL (8.7-10.4) 9.3 mg/dL (8.7-10.4) Total Protein 8.1 g/dL (5.7-8.2) LFT Test 05/17/25 17:49 Alanine Aminotransferase (ALT) 55 U/L (7-40) H Alkaline Phosphatase 300 U/L (46-116) H Aspartate Amino Transferase (AST) 43 U/L (13-40) H Total Bilirubin 0.5 mg/dL (0.2-1.0) Microbiology Microbiology Date/Time Source Procedure Growth Status 05/12/25 15:15 Knee Fluid Right Gram Stain - Final Complete 05/12/25 15:15 Knee Fluid Right Body Fluid Culture - Final Complete Assessment/Plan Assessment/Plan Atrial fibrillation with a rapid ventricular response Acute on chronic congestive heart failure, systolic with reduced ejection fraction Acute hypoxic respiratory failure Pulmonary hypertension Hypertension Seizure disorder Left wrist and left foot injury, no fracture Generalized weakness 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 Diff vs side effect of colchicine DC Colchicin Continue Prednisone Start Allopurinol Check stools for C. Diff COLBY: DC Lasix and Aldactone Continue physical therapy Plan to send home with home health once diarrhea improves Plan discussed with: Patient Date of Service: May 18, 2025 Billing Provider: KUSUM ALEX MD Common Visit Codes: NOT BILLABLE KUSUM ALEX MD May 18, 2025 09:58
[2025-05-18] MEDS: ALLOPURINOL 100 MG TAB PO SCH (10:53)
--- NOTE | 2025-05-18 18:05 | DVHPN2 ---
Progress Note - Dictate Date Seen: May 18, 2025 Medical Necessity Reason Pt with a Central, PICC or Fol: No Subjective Patient was seen and evaluated in follow up. Patient complains of abdominal cramping with significant amounts of diarrhea. Patient reports her joint pain/swelling has subsided. BUN 46, BEEF SKINNER 1.35. Telemetry reviewed. vital signs Vital Sign Date Time Temp Pulse Resp B/P (MAP) Pulse Ox O2 Delivery O2 Flow Rate FiO2 05/18/25 10:30 98 Room Air 0.0 05/18/25 10:30 21 05/18/25 09:13 90/72 05/18/25 09:11 66 05/18/25 09:00 97.0 18 97.0 Total Intake and Output 05/17/25 05/17/25 05/18/25 15:00 23:00 07:00 Intake Total 900 ml 100 ml Output Total 600 ml 200 ml Balance 300 ml -100 ml medications Current Medications Medications Dose Ordered Sig/Ziyad Route Start Time Stop Time Status Last Admin Dose Admin Pantoprazole Sodium 40 mg DAILY PO 05/08/25 10:00 05/18/25 09:11 40 MG Sacubitril/ Valsartan 1 tab BID PO 05/07/25 22:00 05/17/25 21:46 1 TAB Albuterol 2.5 mg Q4HPRN PRN NEB 05/07/25 13:15 Cancel Ipratropium [place] 0.5 mg Q4HPRN PRN NEB 05/07/25 13:15 Cancel Atorvastatin Calcium 20 mg HS PO 05/07/25 22:00 05/17/25 21:46 20 MG Nitroglycerin 0.4 mg Q5MINP PRN SL 05/07/25 13:15 Morphine Sulfate 2 mg Q6HPRN PRN IV 05/07/25 18:15 UNV Acetaminophen 650 mg Q6HP PRN PO 05/08/25 10:30 05/18/25 04:56 650 MG Empaglifozin 10 mg DAILY PO 05/09/25 10:00 05/18/25 09:09 10 MG Hydralazine HCl 10 mg Q6HP PRN IV 05/08/25 12:30 Metoprolol Succinate 100 mg DAILY PO 05/10/25 10:00 05/16/25 09:56 100 MG Acetaminophen/ Hydrocodone Bitart 1 tab Q6HPRN PRN PO 05/11/25 08:45 05/17/25 20:13 1 TAB Amiodarone HCl 200 mg Q12HR PO 05/11/25 10:00 05/18/25 09:19 200 MG Prednisone 10 mg DAILY PO 05/14/25 10:00 05/18/25 09:09 10 MG Apixaban 5 mg BID PO 05/13/25 10:00 05/18/25 09:12 5 MG Enteral Nutritional Formula 240 ml TIDWM PO 05/15/25 12:00 05/18/25 12:21 240 ML Allopurinol 300 mg DAILY PO 05/18/25 10:00 05/18/25 10:53 300 MG objective GENERAL: Alert and oriented x 3. No acute distress. EYES: PERRL, EOMI. Anicteric. HENT: Moist mucous membranes. LUNGS: Clear to auscultation bilaterally. CARDIOVASCULAR: Irregular rate and rhythm. ABDOMEN: Soft, nontender and nondistended. EXTREMITIES: No edema. NEUROLOGIC: No focal neurological deficits. SKIN: Warm, dry. laboratory and microbiology Laboratory Tests 05/18/25 07:09 05/13/25 05:36 Test 05/18/25 07:09 Range/Units Serum Glucose 82 74-106 mg/dL Problem List Atrial fibrillation with rapid ventricular response (on Eliquis), controlled rate. Acute on chronic decompensated HFrEF, NYHA class III. Biventricular heart failure. ?Ischemic vs tachycardia-induced cardiomyopathy. Pulmonary hypertension, severe degree, likely Class III. Severe tricuspid valve regurgitation. Moderate degree mitral valve regurgitation. Hypertension. Dyslipidemia. COPD/Asthma. Assessment/Plan Continued all current supportive medical care. [facility] for pain management. Amiodarone. Eliquis. Lipitor, Metoprolol. IV Hydralazine for SBP >150. GI prophylactics. Entresto. Additional plan as per the hospital course. Plan discussed with: Patient TOVA DUTTON MD May 18, 2025 12:28
[2025-05-19] VITALS (9 sets, daily range): BP systolic 98–113; BP diastolic 73–87; PULSE 55–89; RESP 16–18; TEMP 97.5–98; O2SAT 94–97
[2025-05-19 06:22] LABS: Hematocrit 46.7 % (36.0-46.0); Hemoglobin 15.2 g/dL (12.2-16.2); Mean Corpuscular Hemoglobin 23.0 pg (28.0-32.0); Mean Corpuscular Volume 70.6 fL (80.0-100.0); Nucleated Red Blood Cells % 0.3 %
[2025-05-19 06:43] LABS: Albumin 4.3 g/dL (3.2-4.8); Anion Gap 14 (5-15); BUN/Creatinine Ratio 34.6 (10.0-20.0); Calcium 9.6 mg/dL (8.7-10.4); Chloride 105 mmol/L (98-107); Magnesium 2.3 mg/dL (1.6-2.6); Sodium 137 mmol/L (136-145); Total Protein 8.0 g/dL (5.7-8.2)
[2025-05-19 06:44] LABS: Bilirubin, Total 0.8 mg/dL (0.2-1.0)
[2025-05-19 06:45] LABS: Alanine Aminotransferase 48 U/L (7-40); Alkaline Phosphatase 305 U/L (46-116); Blood Urea Nitrogen 47 mg/dL (9-23); Carbon Dioxide 18 mmol/L (20-31); Glucose 73 mg/dL (74-106); Potassium 3.3 mmol/L (3.5-5.1)
--- NOTE | 2025-05-19 09:02 | DVHPN2 ---
Subjective She is still has severe diarrhea Potassium is 3.3 and creatinine 1.3 Reviewed: Care Plan, H&P, Labs, Medications, Previous Orders, Radiology Changes from previous H/P or p: Changes General: Per HPI Eyes: No Pain, No Vision change, No Conjunctivae inflammation, No Eyelid inflammation, No Other, No Redness ENT: No Ear pain, No Ear discharge, No Nose pain, No Nose discharge, No Nose congestion, No Mouth pain, No Mouth swelling, No Throat pain, No Throat swelling, No Other Cardiovascular: No Chest Pain; Palpitations; No Orthopnea, No Paroxysmal Noc. Dyspnea; Edema; No Lt Headedness, No Other Respiratory: No Cough, No Dry; Shortness of breath; No SOB with excertion, No Wheezing, No Hemoptysis, No Pleuritic Pain, No Sputum, No Other Gastrointestinal: No Nausea, No Vomiting, No Abdominal Pain, No Diarrhea, No Constipation, No Melena, No Hematochezia, No Other Genitourinary: No Dysuria, No Frequency, No Incontinence, No Hematuria, No Retention, No Other Musculoskeletal: No other, No neck pain, No shoulder pain, No arm pain, No back pain, No hand pain; leg pain, foot pain Skin: No Rash, No Lesions, No Jaundice, No Bruising, No Other Objective Vitals Vital Signs Date Time Temp Pulse Resp B/P (MAP) Pulse Ox O2 Delivery O2 Flow Rate FiO2 05/19/25 05:00 97.6 60 18 113/87 (96) 95 97.6 05/18/25 20:25 Room Air* 0 21 Intake/Output Intake and Output 05/19/25 07:00 Intake Total 590 ml Output Total 877 ml Balance -287 ml Intake Oral 590 ml Output Urine Total 875 ml Stool Total 2 ml # Bowel Movements 2 General Appearance: Alert, Oriented X3, Cooperative, No acute distress, m oderate distress Lungs: Other (Bilateral rhonchi) Cardiovascular: Other (Irregularly irregular heart rate 100) Abdomen: Normal bowel sounds, Soft, No tenderness, No hepatospenomegaly Extremities: No edema Medications Current Medications Medications Dose Ordered Sig/Ziyad Route Start Time Stop Time Status Last Admin Dose Admin Pantoprazole Sodium 40 mg DAILY PO 05/08/25 10:00 05/18/25 09:11 40 MG Sacubitril/ Valsartan 1 tab BID PO 05/07/25 22:00 05/18/25 21:38 1 TAB Albuterol 2.5 mg Q4HPRN PRN NEB 05/07/25 13:15 Cancel Ipratropium [place] 0.5 mg Q4HPRN PRN NEB 05/07/25 13:15 Cancel Atorvastatin Calcium 20 mg HS PO 05/07/25 22:00 05/18/25 21:38 20 MG Nitroglycerin 0.4 mg Q5MINP PRN SL 05/07/25 13:15 Morphine Sulfate 2 mg Q6HPRN PRN IV 05/07/25 18:15 UNV Acetaminophen 650 mg Q6HP PRN PO 05/08/25 10:30 05/18/25 20:50 650 MG Empaglifozin 10 mg DAILY PO 05/09/25 10:00 05/18/25 09:09 10 MG Hydralazine HCl 10 mg Q6HP PRN IV 05/08/25 12:30 Metoprolol Succinate 100 mg DAILY PO 05/10/25 10:00 05/16/25 09:56 100 MG Acetaminophen/ Hydrocodone Bitart 1 tab Q6HPRN PRN PO 05/11/25 08:45 05/17/25 20:13 1 TAB Amiodarone HCl 200 mg Q12HR PO 05/11/25 10:00 05/18/25 21:38 200 MG Prednisone 10 mg DAILY PO 05/14/25 10:00 05/18/25 09:09 10 MG Apixaban 5 mg BID PO 05/13/25 10:00 05/18/25 21:38 5 MG Enteral Nutritional Formula 240 ml TIDWM PO 05/15/25 12:00 05/18/25 18:38 240 ML Allopurinol 300 mg DAILY PO 05/18/25 10:00 05/18/25 10:53 300 MG Laboratory Results Laboratory Tests 05/19/25 05:10 Chemistry Test 05/19/25 05:10 Albumin 4.3 g/dL (3.2-4.8) Calcium Level 9.6 mg/dL (8.7-10.4) Magnesium Level 2.3 mg/dL (1.6-2.6) Total Protein 8.0 g/dL (5.7-8.2) LFT Test 05/19/25 05:10 Alanine Aminotransferase (ALT) 48 U/L (7-40) H Alkaline Phosphatase 305 U/L (46-116) H Aspartate Amino Transferase (AST) 33 U/L (13-40) Total Bilirubin 0.8 mg/dL (0.2-1.0) Microbiology Microbiology Date/Time Source Procedure Growth Status 05/12/25 15:15 Knee Fluid Right Gram Stain - Final Complete 05/12/25 15:15 Knee Fluid Right Body Fluid Culture - Final Complete Assessment/Plan Assessment/Plan Atrial fibrillation with a rapid ventricular response Acute on chronic congestive heart failure, systolic with reduced ejection fraction Acute hypoxic respiratory failure Pulmonary hypertension Hypertension Seizure disorder Left wrist and left foot injury, no fracture Generalized weakness 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 Diff vs side effect of colchicine DC Colchicin Continue Prednisone Start Allopurinol Check stools for C. Diff COLBY: DC Lasix and Aldactone Continue physical therapy Plan to send home with home health once diarrhea improves 05/19/2025: Continue the current management Add p.o. vancomycin and IV Flagyl Stool specimen was sent for C diff is still pending Monitor closely Plan discussed with: Patient My Orders Orders - KUSUM ALEX MD Procedure Category Date Status Time Allopurinol Tablet PHA 05/18/25 In Process (Zyloprim Tablet) 10:00 Apply: SIMÓN 05/18/25 In Process 11:05 Date of Service: May 19, 2025 Billing Provider: KUSUM ALEX MD Common Visit Codes: NOT BILLABLE KUSUM ALEX MD May 19, 2025 09:02
[2025-05-19] MEDS: POTASSIUM CHL 20 Meq TABLET PO ONE (09:29)
[2025-05-19] MEDS ORDERED: VANCOMYCIN HCL 125 MG CAP PO SCH (12:00)
--- NOTE | 2025-05-19 13:27 | DVHPN2 ---
Progress Note - Dictate Date Seen: May 19, 2025 Medical Necessity Reason Pt with a Central, PICC or Fol: No Subjective Patient was seen and evaluated in follow up. Patient continues to have diarrhea. 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 Telemetry reviewed. vital signs Vital Sign Date Time Temp Pulse Resp B/P (MAP) Pulse Ox O2 Delivery O2 Flow Rate FiO2 05/19/25 10:20 94 Room Air 0.0 05/19/25 10:20 21 05/19/25 09:47 60 100/72 05/19/25 09:00 97.5 17 97.5 Total Intake and Output 05/18/25 05/18/25 05/19/25 15:00 23:00 07:00 Intake Total 490 ml 100 ml Output Total 602 ml 275 ml Balance -112 ml -175 ml medications Current Medications Medications Dose Ordered Sig/Ziyad Route Start Time Stop Time Status Last Admin Dose Admin Pantoprazole Sodium 40 mg DAILY PO 05/08/25 10:00 05/19/25 09:29 40 MG Sacubitril/ Valsartan 1 tab BID PO 05/07/25 22:00 05/18/25 21:38 1 TAB Albuterol 2.5 mg Q4HPRN PRN NEB 05/07/25 13:15 Cancel Ipratropium [place] 0.5 mg Q4HPRN PRN NEB 05/07/25 13:15 Cancel Atorvastatin Calcium 20 mg HS PO 05/07/25 22:00 05/18/25 21:38 20 MG Nitroglycerin 0.4 mg Q5MINP PRN SL 05/07/25 13:15 Morphine Sulfate 2 mg Q6HPRN PRN IV 05/07/25 18:15 UNV Acetaminophen 650 mg Q6HP PRN PO 05/08/25 10:30 05/18/25 20:50 650 MG Empaglifozin 10 mg DAILY PO 05/09/25 10:00 05/19/25 09:28 10 MG Hydralazine HCl 10 mg Q6HP PRN IV 05/08/25 12:30 Metoprolol Succinate 100 mg DAILY PO 05/10/25 10:00 05/16/25 09:56 100 MG Acetaminophen/ Hydrocodone Bitart 1 tab Q6HPRN PRN PO 05/11/25 08:45 05/17/25 20:13 1 TAB Amiodarone HCl 200 mg Q12HR PO 05/11/25 10:00 05/19/25 09:29 200 MG Prednisone 10 mg DAILY PO 05/14/25 10:00 05/19/25 09:29 10 MG Apixaban 5 mg BID PO 05/13/25 10:00 05/19/25 09:28 5 MG Enteral Nutritional Formula 240 ml TIDWM PO 05/15/25 12:00 05/19/25 09:27 240 ML Allopurinol 300 mg DAILY PO 05/18/25 10:00 05/19/25 09:28 300 MG Metronidazole 100 ml @ 100 mls/hr Q8HR IV 05/19/25 14:00 Vancomycin HCl 125 mg QID PO 05/19/25 12:00 UNV objective GENERAL: Alert and oriented x 3. No acute distress. EYES: PERRL, EOMI. Anicteric. HENT: Moist mucous membranes. LUNGS: Clear to auscultation bilaterally. CARDIOVASCULAR: Irregular rate and rhythm. ABDOMEN: Soft, nontender and nondistended. EXTREMITIES: No edema. NEUROLOGIC: No focal neurological deficits. SKIN: Warm, dry. laboratory and microbiology Laboratory Tests 05/19/25 05:10 Test 05/19/25 05:10 Range/Units Serum Glucose 73 L 74-106 mg/dL Problem List Atrial fibrillation with rapid ventricular response (on Eliquis), controlled rate. Acute on chronic decompensated HFrEF, NYHA class III. Biventricular heart failure. ?Ischemic vs tachycardia-induced cardiomyopathy. Pulmonary hypertension, severe degree, likely Class III. Severe tricuspid valve regurgitation. Moderate degree mitral valve regurgitation. Hypertension. Dyslipidemia. COPD/Asthma. Assessment/Plan Continued all current supportive medical care. [place] for pain management. Amiodarone. Eliquis. Lipitor, Metoprolol. IV Hydralazine for SBP >150. GI prophylactics. Entresto. Additional plan as per the hospital course. Plan discussed with: Patient TOVA DUTTON MD May 19, 2025 12:56
[2025-05-19] MEDS: LOPERAMIDE HCL 2 MG CAP/TAB PO PRN (17:46)
[2025-05-20] VITALS (7 sets, daily range): BP systolic 100–112; BP diastolic 62–78; PULSE 59–78; RESP 16–18; TEMP 36.4; O2SAT 95–99
[2025-05-20 06:24] LABS: Hematocrit 45.6 % (36.0-46.0); Hemoglobin 14.4 g/dL (12.2-16.2); Mean Corpuscular Hemoglobin 22.5 pg (28.0-32.0); Mean Corpuscular Volume 71.3 fL (80.0-100.0); Nucleated Red Blood Cells % 0.1 %
[2025-05-20 06:36] LABS: Anion Gap 12 (5-15); Chloride 107 mmol/L (98-107); Potassium 4.0 mmol/L (3.5-5.1); Sodium 137 mmol/L (136-145)
[2025-05-20 06:37] LABS: Calcium 9.3 mg/dL (8.7-10.4)
[2025-05-20 06:42] LABS: BUN/Creatinine Ratio 29.5 (10.0-20.0); Glucose 83 mg/dL (74-106); Magnesium 2.4 mg/dL (1.6-2.6)
[2025-05-20 06:54] LABS: Blood Urea Nitrogen 38 mg/dL (9-23); Carbon Dioxide 18 mmol/L (20-31)
[2025-05-20] MEDS ORDERED: ALLO300T2 PO (13:15)
[2025-05-20] MEDS ORDERED: LOPE2CAP16 PO (13:15)
--- NOTE | 2025-05-20 16:39 | DVHDS2 ---
Discharge Summary Date of Admission May 07, 2025 at 13:04 Date of Discharge: May 20, 2025 Labs/Diagnostic Data: Laboratory Results Test 05/20/25 05:08 05/19/25 05:10 05/17/25 16:30 05/12/25 15:15 White Blood Count 8.1 10^3/uL (4.4-10.8) Red Blood Count 6.40 10^6/uL (4.0-5.20) Hemoglobin 14.4 g/dL (12.2-16.2) Hematocrit 45.6 % (36.0-46.0) Mean Corpuscular Volume 71.3 fL (80.0-100.0) Mean Corpuscular Hemoglobin 22.5 pg (28.0-32.0) Mean Corpuscular Hemoglobin Concent 31.5 g/dL (32.0-36.0) Red Cell Distribution Width 19.5 % (11.8-14.3) Platelet Count 420 10^3/uL (140-450) Mean Platelet Volume 8.2 fL (6.9-10.8) Neutrophils (%) (Auto) 76.4 % (37.0-80.0) Lymphocytes (%) (Auto) 14.0 % (10.0-50.0) Monocytes (%) (Auto) 8.0 % (0.0-12.0) Eosinophils (%) (Auto) 0.9 % (0.0-7.0) Basophils (%) (Auto) 0.7 % (0.0-2.0) Neutrophils # (Auto) 6.2 10 ^3/uL (1.6-8.6) Lymphocytes # (Auto) 1.1 10 ^3/uL (0.4-5.4) Monocytes # (Auto) 0.7 10 ^3/uL (0-1.3) Eosinophils # (Auto) 0.1 10 ^3/uL (0-0.8) Basophils # (Auto) 0.1 10 ^3/uL (0-0.2) Nucleated Red Blood Cells 0.1 % Sodium Level 137 mmol/L (136-145) Potassium Level 4.0 mmol/L (3.5-5.1) Chloride Level 107 mmol/L (98-107) Carbon Dioxide Level 18 mmol/L (20-31) Anion Gap 12 (5-15) Blood Urea Nitrogen 38 mg/dL (9-23) Creatinine 1.29 mg/dL (0.550-1.02) Glomerular Filtration Rate Calc 43 mL/min (>90) BUN/Creatinine Ratio 29.5 (10.0-20.0) Serum Glucose 83 mg/dL (74-106) Calcium Level 9.3 mg/dL (8.7-10.4) Magnesium Level 2.4 mg/dL (1.6-2.6) Total Bilirubin 0.8 mg/dL (0.2-1.0) Aspartate Amino Transferase (AST) 33 U/L (13-40) Alanine Aminotransferase (ALT) 48 U/L (7-40) Alkaline Phosphatase 305 U/L (46-116) Total Protein 8.0 g/dL (5.7-8.2) Albumin 4.3 g/dL (3.2-4.8) Stool for White Cells None seen Body Fluid Source Rt. knee fluid Body Fluid pH 8.0 Body Fluid WBC (Manual) 31819 CUMM (0-200) Body Fluid RBC (Manual) 9900 CUMM (0-2000) Body Fluid Mononuclear Cells 5 % Body Fluid Polymorphonuclear Cells 95 % (0-25) Bile Fluid Crystals True gout Test 05/09/25 06:00 05/08/25 05:32 05/07/25 15:11 05/07/25 13:21 Uric Acid 8.3 mg/dL (3.1-7.8) Triglycerides Level 99 mg/dL (< 150) Cholesterol Level 106 mg/dL (< 200) LDL Cholesterol 52 mg/dL (< 100) HDL Cholesterol 35 mg/dL (40-59) Hemoglobin A1c 5.8 % A1C (<5.7) Troponin I High Sensitivity 6 ng/L (</=34) Lactic Acid Level 1.5 mmol/L (0.4-2.0) Test 05/07/25 11:25 Phosphorus Level 2.9 mg/dL (2.4-5.1) B-Type Natriuretic Peptide 1168.56 pg/mL (0-100) Thyroid Stimulating Hormone (TSH) 1.82 uIU/mL (0.55-4.78) Other Laboratory Tests 05/20/25 05:08 Brief Hx & Hospital Course: Final diagnoses: Atrial fibrillation with a rapid ventricular response Acute on chronic congestive heart failure, systolic with reduced ejection fraction Acute hypoxic respiratory failure Pulmonary hypertension Hypertension Seizure disorder Left wrist and left foot injury, no fracture Generalized weakness 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 Hyper natremia Hypokalemia 74-year-old female who was admitted for atrial fibrillation with rapid ventricular response and also heart failure with reduced ejection fraction and hypoxic respiratory failure Her rate was controlled with IV amiodarone drip Echocardiogram showed ejection fraction 23% She was started on heart failure treatment She was also complaining of pain in her joints initially on the left side and then the next day on the right side of her wrist and right knee Her right knee appeared to be swollen and x-ray revealed effusion and therefore we performed a arthrocentesis on the right knee and sent it for analysis which showed crystals consistent with gout She was started on steroids and colchicine which improved her pain gradually over the next few days Her heart rate was controlled Her arthritis pain improved and she was seen by Physical therapy After her arthritis pain and swelling improved she developed some diarrhea most likely due to the colchicine C diff was negative She was given Imodium Her activities improved slowly Home health was arranged DME for wheelchair and walker were ordered The patient is stable to go home She will be taking allopurinol 300 mg daily Continue the Lasix and Aldactone and metoprolol and Jardiance and Lipitor and Eliquis and Multaq and Entresto Follow up with the primary care physician as soon as possible Condition at Discharge: Stable Final Diagnosis/Problems List Gouty arthritis Atrial fibrillation with a rapid ventricular response Acute on chronic congestive heart failure, systolic with reduced ejection fraction Acute hypoxic respiratory failure Pulmonary hypertension Hypertension Seizure disorder Left wrist and left foot injury, no fracture Generalized weakness Hypernatremia Hypokalemia Discharge Disposition: Home SNF Discharge Will this Physician continue t: No Discharge Instruct/Medications Diet: Cardiac 2g Na,low cholest Activity: No Restrictions, As Tolerated Follow Up/Referral: PCP NEAL Medications: Allopurinol 300 mg qd Imodium prn Resume home meds Scheduled Allopurinol (Allopurinol), 300 MG PO DAILY Apixaban Base (Eliquis), 5 MG PO BID Apixaban Base (Eliquis), 5 MG PO BID Atorvastatin Calcium (Atorvastatin Calcium), 20 MG PO HS Dronedarone Hydrochloride (Multaq), 1 TAB PO BID Empagliflozin (Jardiance), 10 MG PO DAILY Furosemide (Lasix), 40 MG PO DAILY Metoprolol Succinate (Toprol Xl), 100 MG PO DAILY Metoprolol Tartrate (Metoprolol Tartrate), 50 MG PO BID Pantoprazole Sodium Sesquihydr (Protonix), 1 TAB PO DAILY, (Reported) Sacubitril-Valsartan (Entresto 24-26 mg), 1 TAB PO BID Spironolactone (Aldactone), 25 MG PO DAILY Scheduled PRN Albuterol Sulfate (Albuterol Sulfate Hfa), 2 PUFF IN Q6HR PRN for WHEEZING, (Reported) Loperamide Hcl (Imodium), 2 MG PO Q4HP PRN Discontinued Medications Apixaban Base (Eliquis), 5 MG PO BID Dronedarone Hydrochloride (Multaq), 1 TAB PO BIDWM, (Reported) Furosemide (Lasix), 40 MG PO BID Ibuprofen Micronized (Ibuprofen), 600 MG PO Q6HP PRN Metoprolol Tartrate (Metoprolol Tartrate), 1 TAB PO BID, (Reported) Sacubitril-Valsartan (Entresto 24-26 mg), 1 TAB PO BID Durable Medical Equipment Respiratory Therapy Supplies (Full Kit Nebulizer Set), NEB XX, (DME) Discharge Statement: "Patient was advised to return to the ER or call 911 if any headaches, dizziness, shortness of breath, chest pain, abdominal pain, bleeding, fevers, or worsening of medical condition. Patient was counseled about treatment plan, medications, possible side effects, patientverbalized understanding. All questions were answered to the best of my ability. This discharge took greater then 30 minutes in planning, reviewing documentation, counseling the patient, and discussing with other team members." ASSESSMENT ASSESSMENT Assessment Gouty arthritis Atrial fibrillation with a rapid ventricular response Acute on chronic congestive heart failure, systolic with reduced ejection fraction Acute hypoxic respiratory failure Pulmonary hypertension Hypertension Seizure disorder Left wrist and left foot injury, no fracture Generalized weakness Hypernatremia Hypokalemia Date of Service: May 20, 2025 Billing Provider: KUSUM ALEX MD Common Visit Codes: NOT BILLABLE KUSUM ALEX MD May 20, 2025 16:39
--- NOTE | 2025-05-20 22:27 | DVHPN2 ---
Progress Note - Dictate Date Seen: May 20, 2025 Medical Necessity Reason Pt with a Central, PICC or Fol: No Subjective Patient was seen and evaluated in follow up. Patient has no new complaints at this time. Patient denies any cardiac symptoms. Patient is cardiac stable for discharge. Telemetry reviewed. vital signs Vital Sign Date Time Temp Pulse Resp B/P (MAP) Pulse Ox O2 Delivery O2 Flow Rate FiO2 05/20/25 17:00 96.5 59 16 107/74 (85) 95 96.5 05/20/25 10:28 Room Air 0.0 05/20/25 10:28 21 Total Intake and Output 05/19/25 05/19/25 05/20/25 15:00 23:00 07:00 Intake Total 1114 ml 460 ml Output Total 250 ml 500 ml Balance 864 ml -40 ml medications Current Medications Medications Dose Ordered Sig/Ziyad Route Start Time Stop Time Status Last Admin Dose Admin Albuterol 2.5 mg Q4HPRN PRN NEB 05/07/25 13:15 Cancel Ipratropium [place] 0.5 mg Q4HPRN PRN NEB 05/07/25 13:15 Cancel Morphine Sulfate 2 mg Q6HPRN PRN IV 05/07/25 18:15 UNV objective GENERAL: Alert and oriented x 3. No acute distress. EYES: PERRL, EOMI. Anicteric. HENT: Moist mucous membranes. LUNGS: Clear to auscultation bilaterally. CARDIOVASCULAR: Irregular rate and rhythm. ABDOMEN: Soft, nontender and nondistended. EXTREMITIES: No edema. NEUROLOGIC: No focal neurological deficits. SKIN: Warm, dry. laboratory and microbiology Laboratory Tests 05/20/25 05:08 Test 05/20/25 05:08 Range/Units Serum Glucose 83 74-106 mg/dL Problem List Atrial fibrillation with rapid ventricular response (on Eliquis), controlled rate. Acute on chronic decompensated HFrEF, NYHA class III. Biventricular heart failure. ?Ischemic vs tachycardia-induced cardiomyopathy. Pulmonary hypertension, severe degree, likely Class III. Severe tricuspid valve regurgitation. Moderate degree mitral valve regurgitation. Hypertension. Dyslipidemia. COPD/Asthma. Assessment/Plan Continued all current supportive medical care. [place] for pain management. Amiodarone. Eliquis. Lipitor, Metoprolol. IV Hydralazine for SBP >150. GI prophylactics. Entresto. Additional plan as per the hospital course. Dietary Evaluation Review Comments: Nutrition Recommendation: 1) Ensure High Protein 240ml TID and discontinue Ensure Enlive 240ml TID 2) Monitor PO intake, lab values, weight trend, and I/O Expected Outcomes/Goals: GI symptoms to improve Intake to meet >75% estimated needs FU 3-5 days Plan discussed with: Patient TOVA DUTTON MD May 20, 2025 22:27
== END 2025-05-20 17:00 | disposition home health service (06) | DRG 564 ==
LOC: ER 10:54 → EDBD 10:54 → OVERFLOW 13:04 → TELE-CENTR 17:10
PROVIDERS: ADMIT Internal Medicine Geriatric Medicine; ATTEND Internal Medicine Geriatric Medicine
PROC: 0S9C3ZZ Drainage of Right Knee Joint, Percutaneous Approach (ICD-10-PCS; principal; 2025-05-12)
DX: M25.461 Effusion, right knee (principal); I50.23 Acute on chronic systolic (congestive) heart failure; J96.01 Acute respiratory failure with hypoxia; E87.20 Acidosis, unspecified; E87.0 Hyperosmolality and hypernatremia; I27.20 Pulmonary hypertension, unspecified; I42.9 Cardiomyopathy, unspecified; G40.909 Epilepsy, unspecified, not intractable, without status epilepticus; I48.0 Paroxysmal atrial fibrillation; Z79.01 Long term (current) use of anticoagulants; I11.0 Hypertensive heart disease with heart failure; I07.1 Rheumatic tricuspid insufficiency; J44.89 Other specified chronic obstructive pulmonary disease; N17.9 Acute kidney failure, unspecified; M19.072 Primary osteoarthritis, left ankle and foot; M19.032 Primary osteoarthritis, left wrist; E83.42 Hypomagnesemia; I27.29 Other secondary pulmonary hypertension; E78.5 Hyperlipidemia, unspecified; E87.6 Hypokalemia; I34.0 Nonrheumatic mitral (valve) insufficiency; I50.82 Biventricular heart failure; M10.9 Gout, unspecified; Z88.8 Allergy status to other drugs, medicaments and biological substances; Z74.01 Bed confinement status; Z79.899 Other long term (current) drug therapy; Z82.49 Family history of ischemic heart disease and other diseases of the circulatory system
CPT/HCPCS: 20611; 36415; 71045; 73100; 73110; 73560; 73590; 73600; 73630; 80048; 80053; 80061; 83036; 83605; 83735; 83880; 83986; 84100; 84443; 84484; 84550; 85025; 85048; 87071; 87205; 87493; 89051; 89060; 93005; 93306; 93971; 97110; 97116; 97163; 97530; 99291; G0378; J3490